=== PATIENT | male | born 1970 | race Caucasian/White ===

== ENCOUNTER 2018-06-29 14:58 | Inpatient (IN) | payer BC, SELFPAY ==
[2018-06-29 15:00] VITALS: BP 134/115; PULSE 125; RESP 20; TEMP 36.3; O2SAT 95; BMI 27.9
--- NOTE | 2018-06-29 15:11 | CT_ITS ---
STUDY: CT ABDOMEN AND PELVIS WITH CONTRAST REASON FOR EXAM: Male, 47 years old. Abdominal pain RADIATION DOSAGE (If Supplied By Facility): CTDIvol = ( 16.77 ) mGy, DLP = ( 1141.76 ) mGycm TECHNIQUE: Transaxial images were obtained from the lower chest to the upper thighs with oral contrast. 100 ml of Isovue 300 contrast was administered. Sagittal and coronal images were reconstructed. Individualized dose optimization techniques were used for this CT. COMPARISON: None. FINDINGS: Lower chest: Lower lungs: Minimal dependent atelectasis in both lung bases. Pleura: No pleural effusion. Cardiac: Heart size normal. Liver: Few scattered subcentimeter cysts. Spleen: Nonspecific prominence measuring 14 cm in the AP plane. Gallbladder and biliary system: Normal in appearance. Pancreas: Normal in appearance. Adrenal glands: Normal in appearance. Kidneys and collecting systems: Right: Normal in appearance. No dilatation of collecting system. Left: 3 mm nonobstructing stone in the lower pole. Subcentimeter benign cysts in the lower pole. No dilatation of collecting system. Gastrointestinal: Stomach: Normal in appearance. Small bowel: Normal in appearance. Colon: Scattered diverticula. There is wall thickening and surrounding stranding in the distal descending colon, and there is a 2.5 cm extraluminal focus of air medial to the distal descending colon. Appendix: Normal in appearance. Vessels: Arterial: Minimal scattered vascular calcifications. Venous: Unremarkable. Retroperitoneum/mesentery: Lymph nodes: Small retroperitoneal nodes. Fluid/free air: No free fluid or anterior free air. Pelvis: Bladder: Normal in appearance. Reproductive organs: Normal size prostate with calcifications. No pelvic free fluid. Soft tissues: Small umbilical hernia containing fat. Bones: Moderate degenerative changes. CT/Abdomen/Pelvis WITH Contrast IMPRESSION: There is acute diverticulitis in the distal descending colon. There is adjacent contained rupture with a 2.5 cm focus of air just medial to the distal descending colon. There is no bowel obstruction, ascites or abscess formation. There is no free air in the upper or anterior abdomen. Electronically Signed: Padmini Murphy MD at 18:48 EST Tel Direct: [phone], Service support ,
--- NOTE | 2018-06-29 15:15 | ED.DCSUM_ITS ---
- ER Visit Summary Date of Service: 06/29/18 Chief Complaint: Abdominal pain History of Present Illness: The patient is a 47 M who presents with abdominal pain that began yesterday. Patient states the pain is gradually getting worse. Patient states he has a history of diverticulosis but states this feels somewhat different. Patient states the pain is localized in the left lower quadrant. Patient denies any radiation. Patient admits to some nausea but denies any vomiting. Patient denies any diarrhea, melena, or hematochezia. Patient denies any urinary complaints. Patient states his pain is worse with certain movements and better with rest. Physical Examination: Vital signs showed an elevated blood pressure 134/115 and a tachycardia of 125. Patient is afebrile. Patient is in no acute distress. Remaining vital signs are normal. Oral mucosa is pink and moist. Neck is supple. Trachea is midline. Pupils are equal, round, and reactive to light bilaterally. Extraocular muscles are intact. Conjunctiva is clear. Heart was regular and tachycardic. Lungs are clear and equal bilaterally. Abdomen is soft. There is diffuse tenderness but worse over the left lower quadrant. There is no rebound or guarding noted. Cranial nerves II through XII are intact. There are no focal motor or sensory deficits noted. The remaining physical exam is within normal limits. Test Results: CBC showed a slight leukocytosis of 11.1. Total bilirubin sli ghtly elevated at 1.7 and AST was slightly low at 10. The remaining labs were all within normal limits. CT scan of the abdomen and pelvis with oral and IV contrast shows diverticulitis with local perforation with a 2.5 cm collection of free air adjacent to the distal descending colon. Emergency Department Course and Treatment: Patient was given morphine and Zofran here. Case was discussed with Dr. Diaz. He will be in to evaluate the patient. He will admit the patient to his service. Disposition: Admit to hospital Impression: Diverticulitis with perforation This note was generated with [employer] dictation software. It may contain incorrect words, spelling, and punctuation that were not noted in review of the chart prior to signing ED Disposition - Plan for ED Patient: Disposition: Acute Care Hospital [facility] Chief Complaint: Abd Pain Diagnosis: Diverticulitis of colon with perforation Referrals: [facility] Doctor,Out of [NON-STAFF] -
[2018-06-29 15:41] LABS: Absolute Lymphocyte Count 1.68 X10^3/ul (0.83-4.51); Absolute Neutrophil Count 8.4 X10^3/uL (2.0-7.7); Basophil# 0.01 X10^3/uL; Basophil% 0.1 % (0-1); Eosinophil# 0.05 X10^3/uL; Eosinophils% 0.4 % (0-5); Hematocrit 46.2 % (40-54); Hemoglobin 16.8 g/dl (13.0-16.5); Lymphocyte # 1.68 X10^3/ul (4.0); Lymphocyte % 15.1 % (19-41); Mean Corp Hgb Conc 36.4 g/gl (32-36); Mean Corpuscular Hgb 31.1 pg (27.0-32.0); Mean Corpuscular Volume 85.4 fL (80-94); Mean Platelet Vol. 10.5 fl (6.2-12.0); Monocyte# 0.94 X10^3/uL; Monocyte% 8.4 % (0-10); Neutrophil # 8.41 X10^3/uL (2.7-7.7); Neutrophil % 75.6 % (47-70); Platelet Count 177 K/mm3 (150-450); RBC Distribution Width CV 12.5 % (11.6-14.6); RBC Distribution Width SD 38.8 fl (35.1-43.9); Red Blood Count 5.41 M/mm3 (4.6-6.2); White Blood Count 11.1 K/mm3 (4.4-11.0)
[2018-06-29 15:42] LABS: POSITIVE COUNT NO; POSITIVE DIFFERENTIAL NO; POSITIVE MORPHOLOGY NO
--- NOTE | 2018-06-29 15:46 | ED.RN ---
pt declined morphine and zofran, noted he was not in pain at tthis time and declined.
[2018-06-29 15:56] LABS: ALB/GLOB Ratio 0.9 RATIO (0.9-2.4); AST(SGOT) 10 U/L (15-37); Alanine Aminotransfer ALT/SGPT 29 U/L (16-61); Albumin, Serum 3.9 g/dL (3.2-5.0); Alkaline Phosphatase 83 U/L (45-117); Anion Gap 8 (5-15); BUN 18 mg/dL (7-18); BUN/Creat Ratio 15.5 RATIO (10-20); Chloride 101 mmol/L (98-107); Creatinine, Serum 1.16 mg/dL (0.70-1.30); EST Glomerular Filtration Rate 71 mL/min (>60); Est Glom Filt Rate - Afr Amer 86 mL/min (>60); Estimated Creatinine Clearance 77.03 ml/min; Globulin 4.2 g/dL (2.2-4.2); Glucose 105 mg/dL (74-106); Lipase 96 U/L (73-393); Potassium 3.8 mmol/L (3.5-5.1); Protein, Total 8.1 g/dL (6.4-8.2); Sodium Level 139 mmol/L (136-145)
--- NOTE | 2018-06-29 15:58 | NURSING ---
pt does not want pain medication at this time
[2018-06-29 16:49] VITALS: BP 140/103; PULSE 114; RESP 18; O2SAT 94
[2018-06-29 17:02] LABS: Bacteria 0 SEEN /hpf (None Seen); Mucous, Urine 0 SEEN /hpf (<or=2+); White Blood Cells 0 SEEN /hpf (0-5)
[2018-06-29 17:06] LABS: Color, Urine Yellow (Yellow); Glucose, Dipstick Normal (Normal); Ketone-Dipstick Negative (Negative); Leukocyte Esterase-Dipstick Negative /ul (Negative); Nitrite-Dipstick Negative (Negative); Occult Blood-Urine 10 /ul (Negative); Protein-Dipstick 30 mg/dl (Negative); Specific Gravity, Urine 1.015 (1.002-1.030); Urine Bilirubin Dipstick Negative (Negative); Urine Clarity Clear (Clear); Urine Urobilinogen 4 mg/dl (Normal)
[2018-06-29 17:25] LABS: Red Blood Cells-Urine 0-5 SEEN /hpf (0-5); Squamous Epithelial Cells - UA 0-5 SEEN /hpf (0-5)
--- NOTE | 2018-06-29 17:53 | NURSING ---
pt still does not want morphine or zofran
[2018-06-29 19:00] VITALS: BP 146/108; PULSE 115; RESP 18; O2SAT 95
--- NOTE | 2018-06-29 19:51 | PCM.HP.STD ---
Problem List (1) Diverticulitis of colon with perforation Status: Acute Qualifiers: Diverticulitis bleeding: without bleeding Qualified Code(s): K57.20 - Diverticulitis of large intestine with perforation and abscess without bleeding History of Present Illness Date of Admission: 06/29/18 Chief Complaint: Left lower quadrant pain The patient is a 47 year old M with a history of diverticulitis. He reports that he has had diverticulitis twice in the past. He says that yesterday he began having left lower quadrant pain. He is not have any blood in his stool. He says it is painful to pass gas and he has not passed any gas in the last several hours. He is not having any nausea or vomiting. He says he had a normal colonoscopy about 5-7 years ago. The pain is in his left lower quadrant and does not radiate. He is not having any fevers or chills. Past Medical History Allergies No Known Allergies Allergy (Verified 06/29/18 14:59) Home Medications: Ambulatory Orders Medication Instructions Recorded Omeprazole [Prilosec] 20 mg PO DAILY 06/29/18 Surgical History: no surgical history Smoking Status: Former smoker - *Family History Maternal History Items: Heart Disease Paternal History Items: Cancer, Heart Disease Review of Systems Constitutional: Denies: Anorexia, Fever HEENT: Denies: Difficulty Swallowing Cardiovascular: Denies: Chest Pain Respiratory: Denies: Cough Gastrointestinal: Reports: Abdominal Pain, Constipation, Nausea. Denies: Diarrhea, Vomiting Genitourinary: Denies: Dysuria Musculoskeletal: Denies: Joint Tenderness Skin: Denies: Dryness, Jaundice Neurological: Denies: Balance problems Psychiatric: Denies: Anxiety, Depression Hematologic/ Lymphatic: Denies: Anemia VTE Information - Inpt Only VTE Present on Admission: No VTE Mechan Device Prophylaxis: SCD's Patient Problems: Active and Suspected Problems Diverticulitis of colon with perforation (Acute) - Physical Exam General: Alert, Oriented x3, Cooperative, No apparent distress HEENT: Atraumatic, PERRLA, EOMI Neck: No JVD Lungs: Normal air movement Cardiovascular: Regular rate, Regular Rhythm Abdomen: Soft, Non-Distended, Tender - Tender in the left lower quadrant with no guarding or rebound Extremities: No clubbing Skin: No rashes Musculoskeletal: No Muscle Wasting Neurological: Cranial nerves II-XII grossly intact Psych/Mental Status: Normal Affect, Appropriate Vital Signs Temp Pulse Resp BP Pulse Ox 97.4 F L 115 H 18 146/108 H 95 06/29/18 15:00 06/29/18 19:00 06/29/18 19:00 06/29/18 19:00 06/29/18 19:00 Oxygen Delivery Method Room Air Weight: 189 lb 6.033 oz Body Mass Index (BMI) 27.9 Laboratory Tests Past 24 Hrs 06/29/18 06/29/18 06/29/18 15:30 15:30 16:50 WBC 11.1 H RBC 5.41 Hgb 16.8 H Hct 46.2 MCV 85.4 MCH 31.1 MCHC 36.4 H RDW 12.5 RDW Differential 38.8 Plt Count 177 MPV 10.5 Immature Gran % (Auto) 0.400 Neut % (Auto) 75.6 H Lymph % (Auto) 15.1 L [place] % (Auto) 8.4 Eos % (Auto) 0.4 Baso % (Auto) 0.1 Absolute Neuts (auto) 8.4 H Absolute Lymphs (auto) 1.68 Total Counted Not Reportable Sodium 139 Potassium 3.8 Chloride 101 Carbon Dioxide 30.0 Anion Gap 8 BUN 18 Creatinine 1.16 Estim Creat Clear Calc 77.03 Est GFR (MDRD) Af Amer 86 Est GFR (MDRD) Non-Af 71 BUN/Creatinine Ratio 15.5 Glucose 105 Calcium 9.0 Total Bilirubin 1.70 H AST 10 L ALT 29 Alkaline Phosphatase 83 Total Protein 8.1 Albumin 3.9 Globulin 4.2 Albumin/Globulin Ratio 0.9 Lipase 96 Urine Color Yellow Urine Clarity Clear Urine pH 6.0 Ur Specific [place] 1.015 Urine Protein 30 H Urine Glucose (UA) Normal Urine Ketones Negative Urine Occult Blood 10 H Urine Nitrite Negative Urine Bilirubin Negative Urine Urobilinogen 4 H Ur Leukocyte Esterase Negative Urine RBC 0-5 SEEN Urine WBC 0 SEEN Ur Squamous Epith Cells 0-5 SEEN Urine Bacteria 0 SEEN Urine Mucus 0 SEEN Clinical Impression(s) from Imaging Studies Abdomen/Pelvis CT 06/29/18 15:11 IMPRESSION: There is acute diverticulitis in the distal descending colon. There is adjacent contained rupture with a 2.5 cm focus of air just medial to the distal descending colon. There is no bowel obstruction, ascites or abscess formation. There is no free air in the upper or anterior abdomen. Electronically Signed: Padmini Murphy MD at 18:48 EST Tel Direct: [phone], Service support , Assessment/Plan All Active Problems Diverticulitis of colon with perforation (Acute) 47-year-old male with contained perforation of diverticulitis of the sigmoid colon 1. Patient has elevated white count and left lower quadrant pain. The patient reports his last colonoscopy was 5-7 years ago. The patient has CT scan which shows a contained perforation of the sigmoid colon. There is no free air at this time. The patient's CAT scan also appears to show an apple core lesion versus stricture in the sigmoid rectum junction. 2. I explained that since it is contained I would try conservative management in order to be able to do a colonoscopy and elective colectomy at a future date. I explained that if the patient's pain worsened at all I would repeat a CAT scan and check if the perforation was no longer contained and at that time I would have to perform emergency surgery. 3. I will start the patient on antibiotics and keep the patient n.p.o. SCDs for prophylaxis until 24 hours from now and I will start Lovenox. PPI. Lex Diaz MD Pager: [facility] [address] [place] [address], [address] [place] [address] Office:
--- NOTE | 2018-06-29 19:55 | HP.PCM_ITS ---
Problem List (1) Diverticulitis of colon with perforation Status: Acute Qualifiers: Diverticulitis bleeding: without bleeding Qualified Code(s): K57.20 - Diverticulitis of large intestine with perforation and abscess without bleeding History of Present Illness Date of Admission: 06/29/18 Chief Complaint: Left lower quadrant pain The patient is a 47 year old M with a history of diverticulitis. He reports that he has had diverticulitis twice in the past. He says that yesterday he began having left lower quadrant pain. He is not have any blood in his stool. He says it is painful to pass gas and he has not passed any gas in the last several hours. He is not having any nausea or vomiting. He says he had a normal colonoscopy about 5-7 years ago. The pain is in his left lower quadrant and does not radiate. He is not having any fevers or chills. Past Medical History Allergies No Known Allergies Allergy (Verified 06/29/18 14:59) Home Medications: Ambulatory Orders Medication Instructions Recorded Omeprazole [Prilosec] 20 mg PO DAILY 06/29/18 Surgical History: no surgical history Smoking Status: Former smoker - *Family History Maternal History Items: Heart Disease Paternal History Items: Cancer, Heart Disease Review of Systems Constitutional: Denies: Anorexia, Fever HEENT: Denies: Difficulty Swallowing Cardiovascular: Denies: Chest Pain Respiratory: Denies: Cough Gastrointestinal: Reports: Abdominal Pain, Constipation, Nausea. Denies: Diarrhea, Vomiting Genitourinary: Denies: Dysuria Musculoskeletal: Denies: Joint Tenderness Skin: Denies: Dryness, Jaundice Neurological: Denies: Balance problems Psychiatric: Denies: Anxiety, Depression Hematologic/ Lymphatic: Denies: Anemia VTE Information - Inpt Only VTE Present on Admission: No VTE Mechan Device Prophylaxis: SCD's Patient Problems: Active and Suspected Problems Diverticulitis of colon with perforation (Acute) - Physical Exam General: Alert, Oriented x3, Cooperative, No apparent distress HEENT: Atraumatic, PERRLA, EOMI Neck: No JVD Lungs: Normal air movement Cardiovascular: Regular rate, Regular Rhythm Abdomen: Soft, Non-Distended, Tender - Tender in the left lower quadrant with no guarding or rebound Extremities: No clubbing Skin: No rashes Musculoskeletal: No Muscle Wasting Neurological: Cranial nerves II-XII grossly intact Psych/Mental Status: Normal Affect, Appropriate Vital Signs Temp Pulse Resp BP Pulse Ox 97.4 F L 115 H 18 146/108 H 95 06/29/18 15:00 06/29/18 19:00 06/29/18 19:00 06/29/18 19:00 06/29/18 19:00 Oxygen Delivery Method Room Air Weight: 189 lb 6.033 oz Body Mass Index (BMI) 27.9 Laboratory Tests Past 24 Hrs 06/29/18 06/29/18 06/29/18 15:30 15:30 16:50 WBC 11.1 H RBC 5.41 Hgb 16.8 H Hct 46.2 MCV 85.4 MCH 31.1 MCHC 36.4 H RDW 12.5 RDW Differential 38.8 Plt Count 177 MPV 10.5 Immature Gran % (Auto) 0.400 Neut % (Auto) 75.6 H Lymph % (Auto) 15.1 L [place] % (Auto) 8.4 Eos % (Auto) 0.4 Baso % (Auto) 0.1 Absolute Neuts (auto) 8.4 H Absolute Lymphs (auto) 1.68 Total Counted Not Reportable Sodium 139 Potassium 3.8 Chloride 101 Carbon Dioxide 30.0 Anion Gap 8 BUN 18 Creatinine 1.16 Estim Creat Clear Calc 77.03 Est GFR (MDRD) Af Amer 86 Est GFR (MDRD) Non-Af 71 BUN/Creatinine Ratio 15.5 Glucose 105 Calcium 9.0 Total Bilirubin 1.70 H AST 10 L ALT 29 Alkaline Phosphatase 83 Total Protein 8.1 Albumin 3.9 Globulin 4.2 Albumin/Globulin Ratio 0.9 Lipase 96 Urine Color Yellow Urine Clarity Clear Urine pH 6.0 Ur Specific [place] 1.015 Urine Protein 30 H Urine Glucose (UA) Normal Urine Ketones Negative Urine Occult Blood 10 H Urine Nitrite Negative Urine Bilirubin Negative Urine Urobilinogen 4 H Ur Leukocyte Esterase Negative Urine RBC 0-5 SEEN Urine WBC 0 SEEN Ur Squamous Epith Cells 0-5 SEEN Urine Bacteria 0 SEEN Urine Mucus 0 SEEN Clinical Impression(s) from Imaging Studies Abdomen/Pelvis CT 06/29/18 15:11 IMPRESSION: There is acute diverticulitis in the distal descending colon. There is adjacent contained rupture with a 2.5 cm focus of air just medial to the distal descending colon. There is no bowel obstruction, ascites or abscess formation. There is no free air in the upper or anterior abdomen. Electronically Signed: Padmini Murphy MD at 18:48 EST Tel Direct: [phone], Service support , Assessment/Plan All Active Problems Diverticulitis of colon with perforation (Acute) 47-year-old male with contained perforation of diverticulitis of the sigmoid colon 1. Patient has elevated white count and left lower quadrant pain. The patient reports his last colonoscopy was 5-7 years ago. The patient has CT scan which shows a contained perforation of the sigmoid colon. There is no free air at this time. The patient's CAT scan also appears to show an apple core lesion versus stricture in the sigmoid rectum junction. 2. I explained that since it is contained I would try conservative management in order to be able to do a colonoscopy and elective colectomy at a future date. I explained that if the patient's pain worsened at all I would repeat a CAT scan and check if the perforation was no longer contained and at that time I would have to perform emergency surgery. 3. I will start the patient on antibiotics and keep the patient n.p.o. SCDs for prophylaxis until 24 hours from now and I will start Lovenox. PPI. Lex Diaz MD Pager: [facility] [address] [place] [address], [address] [place] [address] Office:
[2018-06-29 21:29] VITALS: BP 119/88; PULSE 110; RESP 18; TEMP 37.9; O2SAT 93
[2018-06-29 21:33] VITALS: BMI 26.9
[2018-06-29 21:41] VITALS: BMI 26.9
[2018-06-29] MEDS: 0.9% Normal Saline 1,000 ML 125 ML IV (22:06)
[2018-06-30] MEDS: Piperacil/Tazobactam 3.375 GM/50 ML ML IV ×3 (02:03→21:13)
[2018-06-30 02:04] VITALS: BP 144/90; PULSE 89; RESP 16; TEMP 37.6; O2SAT 95
[2018-06-30] MEDS: 0.9% Normal Saline 1,000 ML 125 ML IV ×3 (05:32→21:13)
[2018-06-30 06:00] LABS: Absolute Lymphocyte Count 1.63 X10^3/ul (0.83-4.51); Absolute Neutrophil Count 8.1 X10^3/uL (2.0-7.7); Basophil# 0.02 X10^3/uL; Basophil% 0.2 % (0-1); Eosinophil# 0.05 X10^3/uL; Eosinophils% 0.5 % (0-5); Hematocrit 43.6 % (40-54); Hemoglobin 15.7 g/dl (13.0-16.5); Lymphocyte # 1.63 X10^3/ul (4.0); Lymphocyte % 15.2 % (19-41); Mean Corpuscular Hgb 31.1 pg (27.0-32.0); Mean Corpuscular Volume 86.3 fL (80-94); Mean Platelet Vol. 10.8 fl (6.2-12.0); Monocyte# 0.91 X10^3/uL; Monocyte% 8.5 % (0-10); Neutrophil # 8.09 X10^3/uL (2.7-7.7); Neutrophil % 75.1 % (47-70); Platelet Count 178 K/mm3 (150-450); RBC Distribution Width CV 12.6 % (11.6-14.6); RBC Distribution Width SD 38.8 fl (35.1-43.9); Red Blood Count 5.05 M/mm3 (4.6-6.2); White Blood Count 10.8 K/mm3 (4.4-11.0)
[2018-06-30 06:04] LABS: POSITIVE COUNT NO; POSITIVE DIFFERENTIAL NO; POSITIVE MORPHOLOGY NO
[2018-06-30 06:11] LABS: Anion Gap 8 (5-15); BUN 18 mg/dL (7-18); BUN/Creat Ratio 16.4 RATIO (10-20); Calcium,Total 8.6 mg/dL (8.5-10.1); Chloride 103 mmol/L (98-107); EST Glomerular Filtration Rate 75 mL/min (>60); Est Glom Filt Rate - Afr Amer 91 mL/min (>60); Estimated Creatinine Clearance 83.88 ml/min; Glucose 98 mg/dL (74-106); Magnesium 2.3 mg/dL (1.6-2.6); Phosphorus 2.5 mg/dL (2.5-4.9); Potassium 4.2 mmol/L (3.5-5.1); Sodium Level 138 mmol/L (136-145)
[2018-06-30 07:30] VITALS: BP 133/88; PULSE 84; RESP 16; TEMP 37.3; O2SAT 98
--- NOTE | 2018-06-30 08:28 | PN.SURG_ITS ---
Patient Problems: Active and Suspected Problems Diverticulitis of colon with perforation (Acute) Subjective: Patient reports some improvement of his left lower quadrant pain. He is not having any nausea or vomiting or fevers or chills. - Physical Exam General: Alert, Oriented x3 Lungs: Normal air movement Cardiovascular: Regular Rhythm Abdomen: Soft, Non-Distended, Tender - Tender in left lower quadrant. Vital Signs Temp Pulse Resp BP Pulse Ox 99.1 F 84 16 133/88 H 98 06/30/18 07:30 06/30/18 07:30 06/30/18 07:30 06/30/18 07:30 06/30/18 07:30 Oxygen Delivery Method Room Air Weight: 187 lb 6.287 oz Body Mass Index (BMI) 26.9 Intake and Output for Last 24 Hours 06/28/18 06/29/18 06/30/18 23:59 23:59 23:59 Intake Total 1265 / 1265 Balance 1265 / 1265 Laboratory Tests Past 24 Hrs 06/29/18 06/29/18 06/29/18 15:30 15:30 16:50 WBC 11.1 H RBC 5.41 Hgb 16.8 H Hct 46.2 MCV 85.4 MCH 31.1 MCHC 36.4 H RDW 12.5 RDW Differential 38.8 Plt Count 177 MPV 10.5 Immature Gran % (Auto) 0.400 Neut % (Auto) 75.6 H Lymph % (Auto) 15.1 L [place] % (Auto) 8.4 Eos % (Auto) 0.4 Baso % (Auto) 0.1 Absolute Neuts (auto) 8.4 H Absolute Lymphs (auto) 1.68 Total Counted Not Reportable Sodium 139 Potassium 3.8 Chloride 101 Carbon Dioxide 30.0 Anion Gap 8 BUN 18 Creatinine 1.16 Estim Creat Clear Calc 77.03 Est GFR (MDRD) Af Amer 86 Est GFR (MDRD) Non-Af 71 BUN/Creatinine Ratio 15.5 Glucose 105 Calcium 9.0 Phosphorus Magnesium Total Bilirubin 1.70 H AST 10 L ALT 29 Alkaline Phosphatase 83 Total Protein 8.1 Albumin 3.9 Globulin 4.2 Albumin/Globulin Ratio 0.9 Lipase 96 Urine Color Yellow Urine Clarity Clear Urine pH 6.0 Ur Specific [place] 1.015 Urine Protein 30 H Urine Glucose (UA) Normal Urine Ketones Negative Urine Occult Blood 10 H Urine Nitrite Negative Urine Bilirubin Negative Urine Urobilinogen 4 H Ur Leukocyte Esterase Negative Urine RBC 0-5 SEEN Urine WBC 0 SEEN Ur Squamous Epith Cells 0-5 SEEN Urine Bacteria 0 SEEN Urine Mucus 0 SEEN 06/30/18 06/30/18 05:38 05:38 WBC 10.8 RBC 5.05 Hgb 15.7 Hct 43.6 MCV 86.3 MCH 31.1 MCHC 36.0 RDW 12.6 RDW Differential 38.8 Plt Count 178 MPV 10.8 Immature Gran % (Auto) 0.500 Neut % (Auto) 75.1 H Lymph % (Auto) 15.2 L [place] % (Auto) 8.5 Eos % (Auto) 0.5 Baso % (Auto) 0.2 Absolute Neuts (auto) 8.1 H Absolute Lymphs (auto) 1.63 Total Counted Not Reportable Sodium 138 Potassium 4.2 Chloride 103 Carbon Dioxide 27.0 Anion Gap 8 BUN 18 Creatinine 1.10 Estim Creat Clear Calc 83.88 Est GFR (MDRD) Af Amer 91 Est GFR (MDRD) Non-Af 75 BUN/Creatinine Ratio 16.4 Glucose 98 Calcium 8.6 Phosphorus 2.5 Magnesium 2.3 Total Bilirubin AST ALT Alkaline Phosphatase Total Protein Albumin Globulin Albumin/Globulin Ratio Lipase Urine Color Urine Clarity Urine pH Ur Specific [place] Urine Protein Urine Glucose (UA) Urine Ketones Urine Occult Blood Urine Nitrite Urine Bilirubin Urine Urobilinogen Ur Leukocyte Esterase Urine RBC Urine WBC Ur Squamous Epith Cells Urine Bacteria Urine Mucus Medical Necessity - Tobacco Use Smoking Status: Former smoker Tobacco Use: Cigarettes Assessment/Plan All Active Problems Diverticulitis of colon with perforation (Acute) 47-year-old male with contained perforation of diverticulitis 1. Patient still having tenderness this morning. I will continue n.p.o. and IV fluids as well as IV antibiotics. If there is any worsening of condition I will repeat a CT scan and if there is free perforation he will have surgery. 2. PPI, SCDs, Lovenox Lex Diaz MD Pager: [facility] [address] [place] [address] Outpatient [facility] [place], [address] [place] [address] Office:
[2018-06-30] MEDS: Enoxaparin 40 MG/0.4 ML Syringe SC (10:52)
--- NOTE | 2018-06-30 11:20 | CASEMGMT ---
RN WILLIAM Face to Face with patient for initial transition planning/care coordination assessment. RN CM introduced self and role at [facility]. Patient lying in bed, alert and oriented. Patient willing to participate in assessment and is able to answer all questions appropriately. Care providers, pharmacy, and demographics verified. Patient wishes to discharge home, denies need for home health at this time. Patient states he has no further needs or concerns at this time. CM to follow for discharge planning needs that may arise. PCP: No PCP, CM to provided list Specialists: None Preferred Pharmacy: [facility] Insurance: [place] Prescription Benefit: [place] Living Will/HPOA: None LNOK: Son Living Arrangements: Patient lives alone in mobile home, independent Transportation: self DME/HHC: None Disposition Plan: Patient to discharge home with follow-up plans in place. Ashley JEFFERS, RN, CM
[2018-06-30 15:28] VITALS: BP 118/75; PULSE 74; RESP 18; TEMP 37.3; O2SAT 98
[2018-06-30 20:15] VITALS: BP 138/90; PULSE 87; RESP 18; TEMP 37.1; O2SAT 94
[2018-07-01 01:51] VITALS: BP 133/91; PULSE 84; RESP 16; TEMP 37.6; O2SAT 94
[2018-07-01] MEDS: Piperacil/Tazobactam 3.375 GM/50 ML ML IV ×3 (04:58→21:35)
[2018-07-01] MEDS: 0.9% Normal Saline 1,000 ML 125 ML IV ×3 (04:58→21:35)
[2018-07-01 06:12] LABS: Absolute Lymphocyte Count 1.28 X10^3/ul (0.83-4.51); Absolute Neutrophil Count 8.5 X10^3/uL (2.0-7.7); Basophil# 0.02 X10^3/uL; Basophil% 0.2 % (0-1); Eosinophil# 0.05 X10^3/uL; Eosinophils% 0.5 % (0-5); Hematocrit 41.5 % (40-54); Hemoglobin 14.7 g/dl (13.0-16.5); Lymphocyte # 1.28 X10^3/ul (4.0); Lymphocyte % 11.8 % (19-41); Mean Corp Hgb Conc 35.4 g/gl (32-36); Mean Corpuscular Hgb 30.3 pg (27.0-32.0); Mean Corpuscular Volume 85.6 fL (80-94); Mean Platelet Vol. 10.7 fl (6.2-12.0); Monocyte# 0.98 X10^3/uL; Monocyte% 9.1 % (0-10); Neutrophil # 8.45 X10^3/uL (2.7-7.7); Neutrophil % 78.1 % (47-70); Platelet Count 161 K/mm3 (150-450); RBC Distribution Width CV 12.2 % (11.6-14.6); Red Blood Count 4.85 M/mm3 (4.6-6.2); White Blood Count 10.8 K/mm3 (4.4-11.0)
[2018-07-01 06:13] LABS: POSITIVE COUNT NO; POSITIVE DIFFERENTIAL NO; POSITIVE MORPHOLOGY NO
[2018-07-01 06:21] LABS: Anion Gap 9 (5-15); BUN 14 mg/dL (7-18); BUN/Creat Ratio 16.4 RATIO (10-20); Calcium,Total 8.5 mg/dL (8.5-10.1); Chloride 106 mmol/L (98-107); Creatinine, Serum 0.85 mg/dL (0.70-1.30); EST Glomerular Filtration Rate 101 mL/min (>60); Est Glom Filt Rate - Afr Amer 122 mL/min (>60); Estimated Creatinine Clearance 108.55 ml/min; Glucose 84 mg/dL (74-106); Potassium 3.9 mmol/L (3.5-5.1); Sodium Level 138 mmol/L (136-145)
--- NOTE | 2018-07-01 08:19 | PN.SURG_ITS ---
Patient Problems: Active and Suspected Problems Diverticulitis of colon with perforation (Acute) Subjective: Patient still having left lower quadrant abdominal tenderness. The rest of his abdomen is nontender. He is passing flatus. - Physical Exam General: Alert, Oriented x3, Cooperative Lungs: Normal air movement Abdomen: Soft, Non-Distended, Tender - Tender to palpation of the left lower quadrant. No guarding or rebound. Remainder of the abdomen is soft and nontender. Vital Signs Temp Pulse Resp BP Pulse Ox 99.7 F H 84 16 133/91 H 94 07/01/18 01:51 07/01/18 01:51 07/01/18 01:51 07/01/18 01:51 07/01/18 01:51 Oxygen Delivery Method Room Air Weight: 187 lb 6.287 oz Body Mass Index (BMI) 26.9 Intake and Output for Last 24 Hours 06/29/18 06/30/18 07/01/18 23:59 23:59 23:59 Intake Total 3899 / 3899 901 / 901 Output Total 800 / 800 650 / 650 Balance 3099 / 3099 251 / 251 Laboratory Tests Past 24 Hrs 07/01/18 07/01/18 05:40 05:40 WBC 10.8 RBC 4.85 Hgb 14.7 Hct 41.5 MCV 85.6 MCH 30.3 MCHC 35.4 RDW 12.2 RDW Differential 38.0 Plt Count 161 MPV 10.7 Immature Gran % (Auto) 0.300 Neut % (Auto) 78.1 H Lymph % (Auto) 11.8 L [place] % (Auto) 9.1 Eos % (Auto) 0.5 Baso % (Auto) 0.2 Absolute Neuts (auto) 8.5 H Absolute Lymphs (auto) 1.28 Total Counted Not Reportable Sodium 138 Potassium 3.9 Chloride 106 Carbon Dioxide 23.0 Anion Gap 9 BUN 14 Creatinine 0.85 Estim Creat Clear Calc 108.55 Est GFR (MDRD) Af Amer 122 Est GFR (MDRD) Non-Af 101 BUN/Creatinine Ratio 16.4 Glucose 84 Calcium 8.5 Medical Necessity - Tobacco Use Smoking Status: Former smoker Tobacco Use: Cigarettes Assessment/Plan All Active Problems Diverticulitis of colon with perforation (Acute) 47-year-old male with contained perforation of sigmoid diverticulitis 1. Patient still having abdominal tenderness. His white count is stable and he is afebrile. Continue n.p.o. and IV antibiotics. Once the patient is pain-free I will advance his diet. Lex Diaz MD Pager: [facility] [address] [place] [address], [address] [place] [address] Office:
[2018-07-01 08:31] VITALS: BP 127/75; PULSE 67; RESP 16; TEMP 36.8; O2SAT 95
[2018-07-01] MEDS: Enoxaparin 40 MG/0.4 ML Syringe SC (09:52)
[2018-07-01 19:54] VITALS: BP 145/89; PULSE 75; RESP 16; TEMP 37.3; O2SAT 96
[2018-07-02 02:11] VITALS: BP 111/64; PULSE 63; RESP 16; TEMP 36.6; O2SAT 95
[2018-07-02] MEDS: Piperacil/Tazobactam 3.375 GM/50 ML ML IV ×3 (05:04→21:22)
[2018-07-02] MEDS: 0.9% Normal Saline 1,000 ML 125 ML IV ×3 (05:04→21:21)
[2018-07-02 05:38] LABS: Absolute Lymphocyte Count 1.01 X10^3/ul (0.83-4.51); Basophil# 0.01 X10^3/uL; Basophil% 0.1 % (0-1); Eosinophil# 0.11 X10^3/uL; Eosinophils% 1.4 % (0-5); Hematocrit 39.8 % (40-54); Lymphocyte # 1.01 X10^3/ul (4.0); Lymphocyte % 12.8 % (19-41); Mean Corp Hgb Conc 35.2 g/gl (32-36); Mean Corpuscular Volume 85.4 fL (80-94); Mean Platelet Vol. 10.5 fl (6.2-12.0); Monocyte# 0.76 X10^3/uL; Monocyte% 9.6 % (0-10); Neutrophil # 5.95 X10^3/uL (2.7-7.7); Neutrophil % 75.6 % (47-70); Platelet Count 177 K/mm3 (150-450); RBC Distribution Width CV 12.1 % (11.6-14.6); RBC Distribution Width SD 36.8 fl (35.1-43.9); Red Blood Count 4.66 M/mm3 (4.6-6.2); White Blood Count 7.9 K/mm3 (4.4-11.0)
[2018-07-02 05:44] LABS: Anion Gap 8 (5-15); BUN 13 mg/dL (7-18); BUN/Creat Ratio 13.5 RATIO (10-20); Calcium,Total 8.6 mg/dL (8.5-10.1); Chloride 106 mmol/L (98-107); Creatinine, Serum 0.96 mg/dL (0.70-1.30); EST Glomerular Filtration Rate 88 mL/min (>60); Est Glom Filt Rate - Afr Amer 107 mL/min (>60); Estimated Creatinine Clearance 96.11 ml/min; Glucose 74 mg/dL (74-106); Potassium 4.1 mmol/L (3.5-5.1); Sodium Level 141 mmol/L (136-145)
[2018-07-02 05:59] LABS: POSITIVE COUNT NO; POSITIVE DIFFERENTIAL NO; POSITIVE MORPHOLOGY NO
--- NOTE | 2018-07-02 08:05 | PN.SURG_ITS ---
Patient Problems: Active and Suspected Problems Diverticulitis of colon with perforation (Acute) Subjective: Patient is doing well today. He has some mild discomfort but he said it is much improved. He had a bowel movement with no discomfort. - Physical Exam General: Alert, Oriented x3, Cooperative Neck: No JVD Lungs: Clear to auscultation, Normal air movement Cardiovascular: Regular rate, Regular Rhythm Abdomen: Soft, Non-Distended, Tender - Very mild left lower quadrant tenderness to palpation Vital Signs Temp Pulse Resp BP Pulse Ox 98 F 63 16 111/64 95 07/02/18 02:11 07/02/18 02:11 07/02/18 02:11 07/02/18 02:11 07/02/18 02:11 Oxygen Delivery Method Room Air Weight: 187 lb 6.287 oz Body Mass Index (BMI) 26.9 Intake and Output for Last 24 Hours 06/30/18 07/01/18 07/02/18 23:59 23:59 23:59 Intake Total 3899 / 3899 4141 / 4141 741 / 741 Output Total 800 / 800 3650 / 3650 400 / 400 Balance 3099 / 3099 491 / 491 341 / 341 Laboratory Tests Past 24 Hrs 07/02/18 07/02/18 05:22 05:22 WBC 7.9 RBC 4.66 Hgb 14.0 Hct 39.8 L MCV 85.4 MCH 30.0 MCHC 35.2 RDW 12.1 RDW Differential 36.8 Plt Count 177 MPV 10.5 Immature Gran % (Auto) 0.500 Neut % (Auto) 75.6 H Lymph % (Auto) 12.8 L Starr % (Auto) 9.6 Eos % (Auto) 1.4 Baso % (Auto) 0.1 Absolute Neuts (auto) 6.0 Absolute Lymphs (auto) 1.01 Total Counted Not Reportable Sodium 141 Potassium 4.1 Chloride 106 Carbon Dioxide 27.0 Anion Gap 8 BUN 13 Creatinine 0.96 Estim Creat Clear Calc 96.11 Est GFR (MDRD) Af Amer 107 Est GFR (MDRD) Non-Af 88 BUN/Creatinine Ratio 13.5 Glucose 74 Calcium 8.6 Medical Necessity - Tobacco Use Smoking Status: Former smoker Tobacco Use: Cigarettes Assessment/Plan All Active Problems Diverticulitis of colon with perforation (Acute) 47-year-old male with contained perforation of the sigmoid colon 1. Patient seems to be improving steadily. I will let him if clear liquids today. I will repeat a CT scan with p.o. and IV contrast tomorrow morning. If the contained perforation is stable I will start him on a regular diet tomorrow. If he tolerates regular diet he can be discharged with p.o. antibiotics. Lex Diaz MD Pager: [facility] [address] [place] [address], [address] [place] [address] Office:
[2018-07-02 08:11] VITALS: BP 113/60; PULSE 69; RESP 18; TEMP 36.6; O2SAT 94
[2018-07-02 13:38] VITALS: BP 127/66; PULSE 72; RESP 16; TEMP 36.7; O2SAT 94
[2018-07-02 20:49] VITALS: BP 144/92; PULSE 57; RESP 16; TEMP 37.1; O2SAT 97
[2018-07-02 21:20] VITALS: BP 146/89; PULSE 53
[2018-07-03 03:42] VITALS: BP 117/78; PULSE 61; RESP 16; TEMP 37; O2SAT 95
[2018-07-03] MEDS: 0.9% Normal Saline 1,000 ML 125 ML IV (05:18)
[2018-07-03] MEDS: Piperacil/Tazobactam 3.375 GM/50 ML ML IV (05:33)
--- NOTE | 2018-07-03 05:55 | CT_ITS ---
STUDY: CT ABDOMEN AND PELVIS WITH CONTRAST REASON FOR EXAM: Male, 47 years old. Follow-up contained sigmoid perforation. Left lower quadrant tenderness. RADIATION DOSAGE (If Supplied By Facility): CTDIvol = ( 17.45 ) mGy, DLP = ( 965.87 ) mGycm TECHNIQUE: Transaxial images were obtained from the dome of the diaphragm to the symphysis pubis with oral contrast. 100mL ml of Isovue 300 contrast was administered. Sagittal and coronal images were reconstructed. Individualized dose optimization techniques were used for this CT. COMPARISON: 06/29/2018. FINDINGS: The visualized lung bases are unremarkable. The visualized portions of the heart are within normal limits. There are several small liver cysts. Normal gallbladder and extrahepatic biliary system. There is mild splenomegaly. Normal pancreas. Normal bilateral adrenal glands. Normal right kidney. There is a 4 mm nonobstructive left lower pole renal calculus. There is no demonstrated ureteral calculus or hydronephrosis. Normal visualized stomach. Normal small intestine. There there is extensive colonic diverticulosis, with acute diverticulitis of the proximal sigmoid colon. There is a collection of extravasated air anteromedial to the involved colonic segment with surrounding fat infiltration. There is no associated fluid collection. The appearance is not significantly different from the recent previous study. There is no evidence for remote free intraperitoneal air.. The appendix is visualized on axial images [id number] appears normal.. There is mild atherosclerotic calcification of the abdominal aorta, without a demonstrated aneurysm. Normal inferior vena cava. Normal retroperitoneum. Normal urinary bladder. There is an umbilical hernia containing fat, but no bowel. There is also small left inguinal hernia containing fat, but no bowel. There is bilateral L5 spondylolysis, with associated grade 1 spondylolisthesis L5-S1. There are multilevel degenerative changes in the spine. CT/Abdomen/Pelvis WITH Contrast IMPRESSION: Redemonstration of acute diverticulitis of the proximal sigmoid colon. Localized collection of extravasated air with surrounding fat infiltration is not significantly different from the previous exam. No demonstrated fluid-containing abscess. Small nonobstructive left renal calculus. No demonstrated ureteral calculus or hydronephrosis. Mild splenomegaly. Atherosclerosis. Small liver cysts. Electronically Signed: Sixto Murphy MD at 6:50 EST , Service support ,
[2018-07-03] MEDS: 0.9% NaCl Peripheral Flush Adult/Peds IV (05:57)
[2018-07-03 07:46] VITALS: BP 127/90; PULSE 56; RESP 18; TEMP 36.8; O2SAT 97
--- NOTE | 2018-07-03 09:03 | PN.SURG_ITS ---
Patient Problems: Active and Suspected Problems Diverticulitis of colon with perforation (Acute) Subjective: Patient is doing well this morning. He tolerated a clear liquid diet yesterday. He is not having any pain with defecation or passing gas. No nausea or vomiting or fevers or chills. - Physical Exam General: Alert, Oriented x3, Cooperative Lungs: Normal air movement Abdomen: Soft, Non Tender, Non-Distended Vital Signs Temp Pulse Resp BP Pulse Ox 98.3 F 56 L 18 127/90 H 97 07/03/18 07:46 07/03/18 07:46 07/03/18 07:46 07/03/18 07:46 07/03/18 07:46 Oxygen Delivery Method Room Air Weight: 187 lb 6.287 oz Body Mass Index (BMI) 26.9 Intake and Output for Last 24 Hours 07/01/18 07/02/18 07/03/18 23:59 23:59 23:59 Intake Total 4141 / 4141 3269 / 3269 2167 / 2167 Output Total 3650 / 3650 1100 / 1100 Balance 491 / 491 2169 / 2169 2167 / 2167 Medical Necessity - Tobacco Use Smoking Status: Former smoker Tobacco Use: Cigarettes Assessment/Plan All Active Problems Diverticulitis of colon with perforation (Acute) 47-year-old male with perforated contained diverticulitis 1. Patient is doing well this morning. Patient is not having any pain and he is passing gas. He had a repeat CT with oral and IV contrast today which shows that the air pocket has not increased in size or developed an abscess. I would advance his diet to a transitional diet and if he tolerates this he may be discharged home on oral antibiotic Lex Diaz MD Pager: [facility] [address] [place] [address], [address] [place] [address] Office:
--- NOTE | 2018-07-03 09:04 | PCM.DC ---
- Discharge Diagnoses Current Active Problems: Current Active and Chronic Problems Diverticulitis of colon with perforation (Acute) You will use the following diet at home:: Fiber restricted Your food should be the consistency of: Regular Your liquids should be the consistency of: Regular/Thin Discharge Activity: Return to Normal Activity Call your doctor if your incision/area has: Increased Pain/ Swelling Call your doctor if you observe: Fever of 101 or Higher Allergies/Adverse Reactions: Allergies No Known Allergies Allergy (Verified 06/29/18 14:59) Medications to take at Discharge Omeprazole [Prilosec] 20 mg PO DAILY 06/29/18 Ciprofloxacin [Cipro] 500 mg PO BID 10 Days #20 tablet 07/03/18 Metronidazole [Flagyl] 500 mg PO Q8H 10 Days #30 tablet 07/03/18 The following prescriptions were given: Metronidazole [Flagyl] 500 mg PO Q8H 10 Days #30 tablet Ciprofloxacin [Cipro] 500 mg PO BID 10 Days #20 tablet Primary Care Physician: [facility] Doctor,Out of [NON-STAFF] - Test Results: Test results from this visit will be discussed in further detail at your follow-up appointment, if applicable. Please Follow Up With: Lex Diaz MD When: Please call to schedule 2 week follow up appointment. [phone]
--- NOTE | 2018-07-03 09:06 | DS.PCM_ITS ---
Discharge Date and Diagnosis Date of Admission: 06/29/18 Date of Discharge: 07/03/18 - Primary Discharge Diagnosis Active and Suspected Problems Diverticulitis of colon with perforation (Acute) Hospital Course and Treatment Imaging Results: 07/03/18 05:55 CT Abd [Abdomen/Pelvis WITH Contrast] [CT] AM (NON MEDS) Clinical Impression(s) from Imaging Studies Abdomen/Pelvis CT 06/29/18 15:11 IMPRESSION: There is acute diverticulitis in the distal descending colon. There is adjacent contained rupture with a 2.5 cm focus of air just medial to the distal descending colon. There is no bowel obstruction, ascites or abscess formation. There is no free air in the upper or anterior abdomen. Electronically Signed: Padmini Murphy MD at 18:48 EST Tel Direct: [phone], Service support , Abdomen/Pelvis CT 07/03/18 05:55 IMPRESSION: Redemonstration of acute diverticulitis of the proximal sigmoid colon. Localized collection of extravasated air with surrounding fat infiltration is not significantly different from the previous exam. No demonstrated fluid-containing abscess. Small nonobstructive left renal calculus. No demonstrated ureteral calculus or hydronephrosis. Mild splenomegaly. Atherosclerosis. Small liver cysts. Electronically Signed: Sixto Murphy MD at 6:50 EST , Service support , Operations: None Procedures: None Summary of Care Provided: The patient is a 47 year old M who presented to the emergency room with left lower quadrant pain. CT revealed a contained perforation of the sigmoid colon with diverticulitis. Patient was admitted and kept n.p.o. on IV antibiotics for several days until he is passing gas and pain was resolved. At that time the patient was started on clear liquid diet and he was tolerating clear liquid diet and a repeat scan was done showing that the air collection had not grown and was still contained with no abscess. At that time the patient was advanced to regular diet once he is tolerating regular diet he was discharged home on p.o. antibiotics. He will follow-up with me in 2 weeks and we will schedule him for colonoscopy and discuss possible elective sigmoid colectomy. - Physical Exam Vital Signs Temp Pulse Resp BP Pulse Ox 98.3 F 56 L 18 127/90 H 97 07/03/18 07:46 07/03/18 07:46 07/03/18 07:46 07/03/18 07:46 07/03/18 07:46 Oxygen Delivery Method Room Air Weight: 187 lb 6.287 oz Body Mass Index (BMI) 26.9 Intake and Output for Last 24 Hours 07/01/18 07/02/18 07/03/18 23:59 23:59 23:59 Intake Total 4141 / 4141 3269 / 3269 2167 / 2167 Output Total 3650 / 3650 1100 / 1100 Balance 491 / 491 2169 / 2169 216 / 2166 Discharge Activity: Return to Normal Activity Call your doctor if your incision/area has: Increased Pain/ Swelling Call your doctor if you observe: Fever of 101 or Higher Home Medications: Medications to take at Discharge Omeprazole [Prilosec] 20 mg PO DAILY 06/29/18 Ciprofloxacin [Cipro] 500 mg PO BID 10 Days #20 tablet 07/03/18 Metronidazole [Flagyl] 500 mg PO Q8H 10 Days #30 tablet 07/03/18 Following Prescrptions Were Given to Patient: Metronidazole [Flagyl] 500 mg PO Q8H 10 Days #30 tablet Ciprofloxacin [Cipro] 500 mg PO BID 10 Days #20 tablet Primary Care Physician: [facility] Doctor,Out of [NON-STAFF] - Please Follow Up With: Lex Diaz MD When: Please call to schedule 2 week follow up appointment. [phone] Medical Necessity - Tobacco Use Smoking Status: Former smoker Tobacco Use: Cigarettes Meaningful Use Info Meaningful Use Diagnoses (Choose all that apply): None applicable
--- OUTSIDE RECORDS SUMMARY | 2018-10-01 13:35 | XMS RPT_ITS ---
:1970 Author Organization [facility] Care Team Providers Name Role Phone Primay Care Physicia, No Primary Care Unavailable Lex Diaz Admitting Unavailable Calabretta, Lex Attending Unavailable Calabretta, Lex Attending Unavailable Primay Care Physicia, No Primary Care Unavailable Calabretta, Lex Admitting Unavailable Calabretta, Lex Attending Unavailable Primay Care Physicia, No Primary Care Unavailable Calabretta, Lex Consulting Unavailable Calabretta, Lex Admitting Unavailable Calabretta, Lex Attending Unavailable Primay Care Physicia, No Primary Care Unavailable Calabretta, Lex Consulting Unavailable Calabretta, Lex Admitting Unavailable Calabretta, Lex Attending Unavailable Primay Care Physicia, No Primary Care Unavailable Calabretta, Lex Consulting Unavailable Calabretta, Lex Admitting Unavailable Calabretta, Lex Attending Unavailable Primay Care Physicia, No Primary Care Unavailable Calabretta, Lex Consulting Unavailable Calabretta, Lex Attending Unavailable Primay Care Physicia, No Referring Unavailable Calabretta, Lex Attending Unavailable Calabretta, Lex Referring Unavailable Primay Care Physicia, No Primary Care Unavailable PROBLEMS PROBLEMS DATE TYPE CONDITION / CODE ATTENDING STATUS SOURCE 07/17/2018 Unknown K57.20 - Calabretta, Active Jose Diverticulitis of [facility] large intestine with Hospital perforation and Repository abscess without bleeding / K57.20(ICD-10) 07/17/2018 Unknown K42.9 - Umbilical Calabretta, Active Jose hernia without [facility] obstruction or Hospital gangrene / Repository K42.9(ICD-10) PROCEDURES PROCEDURES No Procedure Records FoundRESULTS RESULTS OPERATIVE REPORT - Observed: 08/06/2018 Status: F Source: [facility] 12:47 PM [facility] REPOSITORY [facility] Medical Records Department [address] [place] [id number] Operative Report - Endoscopy MR#: [id number] Acct: [id number] Name: AUBREY CHAVEZ Rep #: [id number] : 1970 47 From: Lex Diaz MD PCP: Care Physician, No Primary Status: [facility] Patient Name: Aubrey Chavez Procedure Date: 08/05/2018 7:06 AM Date of : 1970 Age: 47 Procedure: Colonoscopy Indications: Follow-up of diverticulitis Providers: Lex Diaz MD Referring MD: Lex Diaz MD Medicines: Monitored Anesthesia Care Patient Profile: This is a 47 year old male. Refer to note in patient chart for documentation of history and physical. Last Colonoscopy: none. The patient's first colonoscopy is today. Complications: No immediate complications. Procedure: Pre-Anesthesia Assessment: - Prior to the procedure, a History and Physical was performed, and patient medications and allergies were reviewed. The patient's tolerance of previous anesthesia was also reviewed. The risks and benefits of the procedure and the sedation options and risks were discussed with the patient. All questions were answered, and informed consent was obtained. Prior Anticoagulants: The patient has taken no previous anticoagulant or antiplatelet agents. After reviewing the risks and benefits, the patient was deemed in satisfactory condition to undergo the procedure. After I obtained informed consent, the scope was passed under direct vision. Throughout the procedure, the patient's blood pressure, pulse, and oxygen saturations were monitored continuously. The Colonoscope was introduced through the anus and advanced to the cecum, identified by appendiceal orifice and ileocecal valve. The colonoscopy was performed without difficulty. The patient tolerated the procedure well. The quality of the bowel preparation was good. Scope In: 7:54:17 AM Scope Withdrawal Time 0 hours 6 minutes 13 seconds Scope Out: 8:06:40 AM Total Procedure Duration Time 0 hours 12 minutes 23 seconds Findings: Multiple small and large-mouthed diverticula were found in the sigmoid colon. The exam was otherwise without abnormality on direct and retroflexion views. Impression: - Diverticulosis in the sigmoid colon. - The examination was otherwise normal on direct and retroflexion views. - No specimens collected. Recommendation: - Discharge patient to home. - Resume previous diet. - Continue present medications. - Return to my office at appointment to be scheduled. - Repeat colonoscopy in 10 years for screening purposes. Procedure Code(s): --- Professional --- 65868, Colonoscopy, flexible; diagnostic, including collection of specimen(s) by brushing or washing, when performed (separate procedure) Diagnosis Code(s): --- Professional --- K57.32, Diverticulitis of large intestine without perforation or abscess without bleeding K57.30, Diverticulosis of large intestine without perforation or abscess without bleeding CPT copyright 2017 [employer]. All rights reserved. The codes documented in this report are preliminary and upon linking machine operator review may be revised to meet current compliance requirements. Lex Diaz MD 08/05/2018 8:11:16 AM This report has been signed electronically. Number of Addenda: 0 Note Initiated On: 08/05/2018 7:06 AM 08/06/18 1246 Date Lex Diaz MD Cosigner Signature: Date (if indicated) CC: No Primary Care Physician; Lex Diaz MD Date Dictated: 08/05/18705 Date Transcribed: Milk Powder Grinder: YAMIL Signed SURGERY VISIT REPORT Observed: 07/17/2018 Status: F Source: [facility] 2:18 PM [facility] REPOSITORY [facility] [address] [place] [address]. [address] [place] [address] OFFICE VISIT Date of Service: 07/17/18 MR#: [id number] Acct: [id number] Name: AUBREY CHAVEZ Rep #: [id number] : 1970 Provider: Lex Diaz MD Age/Sex: 47/M Location: [facility] Status: Signed Intake Vital Signs07/17/18 Body Mass Index (BMI) 26.9 07/17/18 Height 5 ft 9 in 07/17/18 Weight: 189 lb Intake Visit Reasons: [facility] IP Perforated Diverticulitis Chief Complaint: ABD pain and nausea [employer]op Riv[employer] Machine Operator Required: No Is patient in pain?: Yes (umbilicus) Allergies No Known Allergies Allergy (Verified 07/17/18 14:06) Medications Omeprazole [Prilosec] 20 mg PO DAILY 06/29/18 [History Confirmed 07/17/18] PFSH Medical History GERD (gastroesophageal reflux disease) (Acute) HTN (hypertension) (Chronic) Diverticulitis of colon with perforation (Acute) Surgical History S/P nasal surgery (Acute) Family History Mother Heart disease Father Heart disease Cancer Social History Smoking Status: Former smoker alcohol intake: current alcohol intake frequency: a few times a month HPI HPI HPI: AUBREY CHAVEZ, is a 47 M who presents to the office today for follow-up after hospital admission for perforated diverticulitis. The patient had been perforation of sigmoid during episode of diverticulitis. Patient was treated conservatively and is doing well. He is having some diarrhea and just finished his antibiotics. He is only having pain at his umbilicus where he has an umbilical hernia. ROS General General: No weight change or fatigue Cardio Cardiovascular: Yes high blood pressure; no murmur, pacemaker, heart disease, atrial fibrillation, heart attack, heart stent, palpitations, shortness of breat with exertion or chest pain Psych Psychiatric: No depression or anxiety Resp Respiratory: No shortness of breath, No sleep apnea, No cough, No COPD, No asthma, No emphysema, No wheezing Gastro Gastrointestinal: Yes abdominal pain, No nausea or vomiting, Yes diarrhea, No constipation, No blood in stool, Yes acid reflux, No hemorrhoids, No ulcers, No gallbladder problem, No black,tarry stools Bry Hematologic: No blood thinners Exam Const General: cooperative Orientation: alert, oriented x3 Resp Effort AND Inspection: normal respiratory effort Auscultation: clear to auscultation bilaterally Cardio Rate: regular rate Rhythm: regular rhythm Heart Sounds: no murmurs GI Inspection: non-distended Palpation: soft, nontender, hernia umbilical Assessment AND Plan 1. Diverticulitis of large intestine with perforation without bleeding K57.20 Plan 1. The patient has had 3 bouts of diverticulitis that he knows of and 1 of these was complicated by perforation. I recommend the patient have sigmoid colectomy. The patient does have diffuse diverticulosis of the transverse descending and sigmoid colon. The perforation appears to be in the mid sigmoid. On the CAT scan the patient also appear to have distal strictures in the rectosigmoid junction. I recommend obtaining a colonoscopy before proceeding with colectomy. I will plan for colonoscopy in 2 weeks. I will follow-up with him after that to discuss possible colectomy plans. If the strictures are very low I will send him to a colorectal surgeon same he may have a low anastomosis. 2. I explained endoscopy in detail to the patient. I explained the risks including but not limited to stroke or heart attack with anesthesia, perforation of the GI tract, bleeding, infection. I explained that any of these could necessitate further emergency surgery. The patient understands and all questions were answered sufficiently. The patient wishes to proceed with procedure. Orders Orders: 2. Umbilical hernia without obstruction and without gangrene K42.9 Plan 1. Patient has a small incarcerated umbilical hernia. I explained that when we proceed with surgery I can repair this umbilical hernia as well. Lex Diaz MD Pager: [facility] [address] [place] [address], [address] [place] [address] Office: Coding Level of Care Code Off vis,est,level 3 Diagnoses Diverticulitis of large intestine with perforation without bleeding K57.20 Diverticulitis bleeding: without bleeding Umbilical hernia without obstruction and without gangrene K42.9 Obstruction and gangrene presence: without obstruction or gangrene 07/17/18 1418 <Electronically signed by Lex Diaz MD> Date Lex Diaz MD Cosigner Signature: Date (if applicable) CC: DISCHARGE SUMMARY Observed: 07/04/2018 Status: F Source: [facility] 9:53 AM [facility] REPOSITORY [facility] Medical Records Department [address] [place] [address] Discharge Summary 07/03/18 0906 MR#: [id number] Acct: [id number] Name: TAWANDAMAGDALENEAUBREY Rep #: [id number] : 1970 47 From: Lex Diaz MD PCP: Care Physician, No Primary Status: DIS IN Y Location[place] [facility] [id number] Discharge Date and Diagnosis Date of Admission: 06/29/18 Date of Discharge: 07/03/18 - Primary Discharge Diagnosis Active and Suspected Problems Diverticulitis of colon with perforation (Acute) Hospital Course and Treatment Imaging Results: 07/03/18 05:55 CT Abd [Abdomen/Pelvis WITH Contrast] [CT] AM (NON MEDS) Clinical Impression(s) from Imaging Studies Abdomen/Pelvis CT 06/29/18 15:11 IMPRESSION: There is acute diverticulitis in the distal descending colon. There is adjacent contained rupture with a 2.5 cm focus of air just medial to the distal descending colon. There is no bowel obstruction, ascites or abscess formation. There is no free air in the upper or anterior abdomen. Electronically Signed: Padmini Murphy MD at 18:48 EST Tel Direct: [phone], Service support , Abdomen/Pelvis CT 07/03/18 05:55 IMPRESSION: Redemonstration of acute diverticulitis of the proximal sigmoid colon. Localized collection of extravasated air with surrounding fat infiltration is not significantly different from the previous exam. No demonstrated fluid-containing abscess. Small nonobstructive left renal calculus. No demonstrated ureteral calculus or hydronephrosis. Mild splenomegaly. Atherosclerosis. Small liver cysts. Electronically Signed: Sixto Murphy MD at 6:50 EST , Service support , Operations: None Procedures: None Summary of Care Provided: The patient is a 47 year old M who presented to the emergency room with left lower quadrant pain. CT revealed a contained perforation of the sigmoid colon with diverticulitis. Patient was admitted and kept n.p.o. on IV antibiotics for several days until he is passing gas and pain was resolved. At that time the patient was started on clear liquid diet and he was tolerating clear liquid diet and a repeat scan was done showing that the air collection had not grown and was still contained with no abscess. At that time the patient was advanced to regular diet once he is tolerating regular diet he was discharged home on p.o. antibiotics. He will follow-up with me in 2 weeks and we will schedule him for colonoscopy and discuss possible elective sigmoid colectomy. - Physical Exam Vital Signs Temp Pulse Resp BP Pulse Ox 98.3 F 56 L 18 127/90 H 97 07/03/18 07:46 07/03/18 07:46 07/03/18 07:46 07/03/18 07:46 07/03/18 07:46 Oxygen Delivery Method Room Air Weight: 187 lb 6.287 oz Body Mass Index (BMI) 26.9 Intake and Output for Last 24 Hours Intake Total 4141 / 4141 3269 / 3269 2167 / 2167 Output Total 3650 / 3650 1100 / 1100 Balance 491 / 491 2169 / 216 216 / 216 Discharge Activity: Return to Normal Activity Call your doctor if your incision/area has: Increased Pain/ Swelling Call your doctor if you observe: Fever of 101 or Higher Home Medications: Medications to take at Discharge Omeprazole [Prilosec] 20 mg PO DAILY 06/29/18 Ciprofloxacin [Cipro] 500 mg PO BID 10 Days #20 tablet 07/03/18 Metronidazole [Flagyl] 500 mg PO Q8H 10 Days #30 tablet 07/03/18 Following Prescrptions Were Given to Patient: Metronidazole [Flagyl] 500 mg PO Q8H 10 Days #30 tablet Ciprofloxacin [Cipro] 500 mg PO BID 10 Days #20 tablet Primary Care Physician: [facility] Doctor,Out of [NON-STAFF] - Please Follow Up With: Lex Diaz MD When: Please call to schedule 2 week follow up appointment. [phone] Medical Necessity - Tobacco Use Smoking Status: Former smoker Tobacco Use: Cigarettes Meaningful Use Info Meaningful Use Diagnoses (Choose all that apply): None applicable 07/04/18 0953 <Electronically signed by Lex Diaz MD> Date Lex Diaz MD Cosigner Signature (if applicable): Date CC: No Primary Care Physician; Lex Diaz MD Signed DISCHARGE INSTRUCTION Observed: 07/03/2018 Status: F Source: [facility] 9:06 AM [facility] REPOSITORY [facility] Medical Records Department [address] [place] [address] Instructions for Home/Discharge Instructions 07/03/18903 MR#: [id number] Acct: [id number] Name: AUBREY CHAVEZ Rep #: [id number] : 1970 47 From: Lex Diaz MD PCP: Care Physician, No Primary Status: ADM IN - Discharge Diagnoses Current Active Problems: Current Active and Chronic Problems Diverticulitis of colon with perforation (Acute) You will use the following diet at home:: Fiber restricted Your food should be the consistency of: Regular Your liquids should be the consistency of: Regular/Thin Discharge Activity: Return to Normal Activity Call your doctor if your incision/area has: Increased Pain/ Swelling Call your doctor if you observe: Fever of 101 or Higher Allergies/Adverse Reactions: Allergies No Known Allergies Allergy (Verified 06/29/18 14:59) Medications to take at Discharge Omeprazole [Prilosec] 20 mg PO DAILY 06/29/18 Ciprofloxacin [Cipro] 500 mg PO BID 10 Days #20 tablet 07/03/18 Metronidazole [Flagyl] 500 mg PO Q8H 10 Days #30 tablet 07/03/18 The following prescriptions were given: Metronidazole [Flagyl] 500 mg PO Q8H 10 Days #30 tablet Ciprofloxacin [Cipro] 500 mg PO BID 10 Days #20 tablet Primary Care Physician: [facility] Doctor,Out of [NON-STAFF] - Test Results: Test results from this visit will be discussed in further detail at your follow-up appointment, if applicable. Please Follow Up With: Lex Diaz MD When: Please call to schedule 2 week follow up appointment. [phone] 07/03/18905 <Electronically signed by Lex Diaz MD> Date Lex Diaz MD CC: No Primary Care Physician ABDOMEN/PELVIS WITH Observed: 07/03/2018 Status: F Source: [facility] CONTRAST 12:00 AM [facility] REPOSITORY [facility] Imaging Services [address] [place] [address] Abdomen/Pelvis WITH Contrast MR#: [id number] Acct: [id number] Name: AUBREY CHAVEZ Rep #: [id number] : 1970 M 47 From: Sixto Murphy MD PCP: Care Physician, No Primary Status: ADM IN Study: Abdomen/Pelvis WITH Contrast Date of Exam: 07/03/18 Exam# [id number] Ordering Dr: Lex Diaz MD STUDY: CT ABDOMEN AND PELVIS WITH CONTRAST REASON FOR EXAM: Male, 47 years old. Follow-up contained sigmoid perforation. Left lower quadrant tenderness. RADIATION DOSAGE (If Supplied By Facility): CTDIvol = ( 17.45 ) mGy, DLP = ( 965.87 ) mGycm TECHNIQUE: Transaxial images were obtained from the dome of the diaphragm to the symphysis pubis with oral contrast. 100mL ml of Isovue 300 contrast was administered. Sagittal and coronal images were reconstructed. Individualized dose optimization techniques were used for this CT. COMPARISON: 06/29/2018. FINDINGS: The visualized lung bases are unremarkable. The visualized portions of the heart are within normal limits. There are several small liver cysts. Normal gallbladder and extrahepatic biliary system. There is mild splenomegaly. Normal pancreas. Normal bilateral adrenal glands. Normal right kidney. There is a 4 mm nonobstructive left lower pole renal calculus. There is no demonstrated ureteral calculus or hydronephrosis. Normal visualized stomach. Normal small intestine. There there is extensive colonic diverticulosis, with acute diverticulitis of the proximal sigmoid colon. There is a collection of extravasated air anteromedial to the involved colonic segment with surrounding fat infiltration. There is no associated fluid collection. The appearance is not significantly different from the recent previous study. There is no evidence for remote free intraperitoneal air.. The appendix is visualized on axial images [id number] appears normal.. There is mild atherosclerotic calcification of the abdominal aorta, without a demonstrated aneurysm. Normal inferior vena cava. Normal retroperitoneum. Normal urinary bladder. There is an umbilical hernia containing fat, but no bowel. There is also small left inguinal hernia containing fat, but no bowel. There is bilateral L5 spondylolysis, with associated grade 1 spondylolisthesis L5-S1. There are multilevel degenerative changes in the spine. CT/Abdomen/Pelvis WITH Contrast IMPRESSION: Redemonstration of acute diverticulitis of the proximal sigmoid colon. Localized collection of extravasated air with surrounding fat infiltration is not significantly different from the previous exam. No demonstrated fluid-containing abscess. Small nonobstructive left renal calculus. No demonstrated ureteral calculus or hydronephrosis. Mild splenomegaly. Atherosclerosis. Small liver cysts. Electronically Signed: Sixto Murphy MD at 6:50 EST , Service support , CC: No Primary Care Physician; Lex Diaz MD Milk Powder Grinder: Signed BASIC METABOLIC Collected: 07/02/2018 Status: F Source: [facility] PROFILE (BMP) 5:22 AM [facility] REPOSITORY TYPE CODE TESTS RESULT OUT OF RANGE REFERENCE UNITS LAB L501.0100 74-106 mg/dL Normal GLU 74 Result Comment: Please note revised GLUCOSE reference range effective 2017. LAB L501.1000 7-18 mg/dL Normal BUN 13 LAB L501.1100 0.70-1.30 mg/dL Normal CREAT,SERUM 0.96 Result Comment: The validity of the calculated GFR AND GFRAA in patients over 70 years has not been determined. Clinical correlation is essential. LAB L501.1110 >60 mL/min Normal EST GFR 88 Result Comment: Non- GFR Calc LAB L501.1115 >60 mL/min Normal EST GFR - AA 107 Result Comment: GFR Calc LAB L501.1255 ml/min Normal Estimated CRCL 96.11 LAB L501.1300 10-20 RATIO Normal BUN/CRE 13.5 LAB L501.2200 8.5-10 mg/dL Normal .1 CA 8.6 LAB L501.5300 136-14 mmol/L Normal 5 NA 141 LAB L501.5600 3.5-5. mmol/L Normal 1 K 4.1 LAB L501.5900 98-107 mmol/L Normal CL 106 LAB L501.6100 21.0-3 mmol/L Normal 2.0 CO2 27.0 LAB L501.6200 5-15 Normal GAP 8 Performed By: #### L500.2500 #### [facility] [address] [facility]. [place], [place], [id number] CBC W/DIFF, AUTOMATED Collected: 07/02/2018 Status: F Source: [facility] 5:22 AM [facility] REPOSITORY TYPE CODE TESTS RESULT OUT OF RANGE REFERENCE UNITS LAB L100.1000 4.4-11.0 K/mm3 Normal WBC 7.9 LAB L100.1200 4.6-6.2 M/mm3 Normal RBC 4.66 LAB L100.1300 13.0-16.5 g/dl Normal HGB 14.0 LAB L100.1400 40-54 % Low HCT 39.8 LAB L100.1500 80-94 fL Normal MCV 85.4 LAB L100.1600 27.0-32.0 pg Normal MCH 30.0 LAB L100.1700 32-36 g/gl Normal MCHC 35.2 LAB L100.1810 11.6-14.6 % Normal RDW CV 12.1 LAB L100.1820 35.1-43.9 fl Normal RDW SD 36.8 LAB L100.1900 150-450 K/mm3 Normal PLT 177 LAB L100.2000 6.2-12.0 fl Normal MPV 10.5 LAB L100.2100 47-70 % High NEUT% 75.6 LAB L100.2200 19-41 % Low LY% 12.8 LAB L100.2300 0-10 % Normal MONO% 9.6 LAB L100.2400 0-5 % Normal EO% 1.4 LAB L100.2500 0-1 % Normal BASO% 0.1 LAB L100.2550 0.0-0.9 % Normal IM GRAN % 0.500 Result Comment: IG% - Immature Granulocytes (promyelocytes, myelocytes and metamyelocytes) > 1% indicates that a LEFT SHIFT is Present. LAB L100.2620 2.0-7.7 X10 3/uL Normal Absolute Neut 6.0 LAB L100.2720 0.83-4.51 X10 3/ul Normal Absolute Lymph 1.01 Performed By: #### L100.0100 #### [facility] [address] [place], [place], [address] CBC W/DIFF, AUTOMATED Collected: 07/01/2018 Status: F Source: JOSE 5:40 AM [facility] REPOSITORY TYPE CODE TESTS RESULT OUT OF RANGE REFERENCE UNITS LAB L100.1000 4.4-11.0 K/mm3 Normal WBC 10.8 LAB L100.1200 4.6-6.2 M/mm3 Normal RBC 4.85 LAB L100.1300 13.0-16.5 g/dl Normal HGB 14.7 LAB L100.1400 40-54 % Normal HCT 41.5 LAB L100.1500 80-94 fL Normal MCV 85.6 LAB L100.1600 27.0-32.0 pg Normal MCH 30.3 LAB L100.1700 32-36 g/gl Normal MCHC 35.4 LAB L100.1810 11.6-14.6 % Normal RDW CV 12.2 LAB L100.1820 35.1-43.9 fl Normal RDW SD 38.0 LAB L100.1900 150-450 K/mm3 Normal PLT 161 LAB L100.2000 6.2-12.0 fl Normal MPV 10.7 LAB L100.2100 47-70 % High NEUT% 78.1 LAB L100.2200 19-41 % Low LY% 11.8 LAB L100.2300 0-10 % Normal MONO% 9.1 LAB L100.2400 0-5 % Normal EO% 0.5 LAB L100.2500 0-1 % Normal BASO% 0.2 LAB L100.2550 0.0-0.9 % Normal IM GRAN % 0.300 Result Comment: IG% - Immature Granulocytes (promyelocytes, myelocytes and metamyelocytes) > 1% indicates that a LEFT SHIFT is Present. LAB L100.2620 2.0-7.7 X10 3/uL High Absolute Neut 8.5 LAB L100.2720 0.83-4.51 X10 3/ul Normal Absolute Lymph 1.28 Performed By: #### L100.0100 #### [facility] [address] [place], [address] BASIC METABOLIC Collected: 07/01/2018 Status: F Source: JOSE PROFILE (BMP) 5:40 AM [facility] REPOSITORY TYPE CODE TESTS RESULT OUT OF RANGE REFERENCE UNITS LAB L501.0100 74-106 mg/dL Normal GLU 84 Result Comment: Please note revised GLUCOSE reference range effective 2017. LAB L501.1000 7-18 mg/dL Normal BUN 14 LAB L501.1100 0.70-1.30 mg/dL Normal CREAT,SERUM 0.85 Result Comment: The validity of the calculated GFR AND GFRAA in patients over 70 years has not been determined. Clinical correlation is essential. LAB L501.1110 >60 mL/min Normal EST GFR 101 Result Comment: Non- GFR Calc LAB L501.1115 >60 mL/min Normal EST GFR - AA 122 Result Comment: GFR Calc LAB L501.1255 ml/min Normal Estimated CRCL 108.55 LAB L501.1300 10-20 RATIO BUN/CRE Normal 16.4 LAB L501.2200 8.5-10 mg/dL .1 CA Normal 8.5 LAB L501.5300 136-14 mmol/L 5 NA Normal 138 LAB L501.5600 3.5-5. mmol/L 1 K Normal 3.9 LAB L501.5900 98-107 mmol/L CL Normal 106 LAB L501.6100 21.0-3 mmol/L 2.0 CO2 Normal 23.0 LAB L501.6200 5-15 GAP Normal 9 Performed By: #### L500.2500 #### [facility] [address] [place], [address] CBC W/DIFF, AUTOMATED Collected: 06/30/2018 Status: F Source: JOSE 5:38 AM [facility] REPOSITORY TYPE CODE TESTS RESULT OUT OF RANGE REFERENCE UNITS LAB L100.1000 4.4-11.0 K/mm3 Normal WBC 10.8 LAB L100.1200 4.6-6.2 M/mm3 Normal RBC 5.05 LAB L100.1300 13.0-16.5 g/dl Normal HGB 15.7 LAB L100.1400 40-54 % Normal HCT 43.6 LAB L100.1500 80-94 fL Normal MCV 86.3 LAB L100.1600 27.0-32.0 pg Normal MCH 31.1 LAB L100.1700 32-36 g/gl Normal MCHC 36.0 LAB L100.1810 11.6-14.6 % Normal RDW CV 12.6 LAB L100.1820 35.1-43.9 fl Normal RDW SD 38.8 LAB L100.1900 150-450 K/mm3 Normal PLT 178 LAB L100.2000 6.2-12.0 fl Normal MPV 10.8 LAB L100.2100 47-70 % High NEUT% 75.1 LAB L100.2200 19-41 % Low LY% 15.2 LAB L100.2300 0-10 % Normal MONO% 8.5 LAB L100.2400 0-5 % Normal EO% 0.5 LAB L100.2500 0-1 % Normal BASO% 0.2 LAB L100.2550 0.0-0.9 % Normal IM GRAN % 0.500 Result Comment: IG% - Immature Granulocytes (promyelocytes, myelocytes and metamyelocytes) > 1% indicates that a LEFT SHIFT is Present. LAB L100.2620 2.0-7.7 X10 3/uL High Absolute Neut 8.1 LAB L100.2720 0.83-4.51 X10 3/ul Normal Absolute Lymph 1.63 Performed By: #### L100.0100 #### [facility] [address] [place], [place], [address] BASIC METABOLIC Collected: 06/30/2018 Status: F Source: CRUMP PROFILE (BMP) 5:38 AM [facility] REPOSITORY TYPE CODE TESTS RESULT OUT OF RANGE REFERENCE UNITS LAB L501.0100 74-106 mg/dL Normal GLU 98 Result Comment: Please note revised GLUCOSE reference range effective 2017. LAB L501.1000 7-18 mg/dL Normal BUN 18 LAB L501.1100 0.70-1.30 mg/dL Normal CREAT,SERUM 1.10 Result Comment: The validity of the calculated GFR AND GFRAA in patients over 70 years has not been determined. Clinical correlation is essential. LAB L501.1110 >60 mL/min Normal EST GFR 75 Result Comment: Non- GFR Calc LAB L501.1115 >60 mL/min Normal EST GFR - AA 91 Result Comment: GFR Calc LAB L501.1255 ml/min Normal Estimated CRCL 83.88 LAB L501.1300 10-20 RATIO Normal BUN/CRE 16.4 LAB L501.2200 8.5-10 mg/dL Normal .1 CA 8.6 LAB L501.5300 136-14 mmol/L Normal 5 NA 138 LAB L501.5600 3.5-5. mmol/L Normal 1 K 4.2 LAB L501.5900 98-107 mmol/L Normal CL 103 LAB L501.6100 21.0-3 mmol/L Normal 2.0 CO2 27.0 LAB L501.6200 5-15 Normal GAP 8 Performed By: #### L500.2500, L501.2300, L501.5200 #### [facility] [address] [place], [address] PHOSPHORUS Collected: 06/30/2018 Status: F Source: CRUMP 5:38 AM [facility] REPOSITORY TYPE CODE TESTS RESULT OUT OF RANGE REFERENCE UNITS LAB L501.2300 2.5-4.9 mg/dL Normal PHOS 2.5 Performed By: #### L500.2500, L501.2300, L501.5200 #### [facility] [address] [place], [address] MAGNESIUM Collected: 06/30/2018 Status: F Source: CRUMP 5:38 AM [facility] REPOSITORY TYPE CODE TESTS RESULT OUT OF RANGE REFERENCE UNITS LAB L501.5200 1.6-2.6 mg/dL Normal MG 2.3 Performed By: #### L500.2500, L501.2300, L501.5200 #### [facility] [address] [place], [address] HISTORY AND PHYSICAL Observed: 06/29/2018 Status: F Source: CRUMP EXAM 7:58 PM [facility] REPOSITORY [facility] Medical Records Department [address] [place] [address] History and Physical 06/29/181950 MR#: [id number] Acct: [id number] Name: AUBREY CHAVEZ Rep #: [id number] : 1970 47 From: Lex Diaz MD PCP: Care Physician, No Primary Status: REG ER Y Location: ED Problem List (1) Diverticulitis of colon with perforation Status: Acute Qualifiers: Diverticulitis bleeding: without bleeding Qualified Code(s): K57.20 - Diverticulitis of large intestine with perforation and abscess without bleeding History of Present Illness Date of Admission: 06/29/18 Chief Complaint: Left lower quadrant pain The patient is a 47 year old M with a history of diverticulitis. He reports that he has had diverticulitis twice in the past. He says that yesterday he began having left lower quadrant pain. He is not have any blood in his stool. He says it is painful to pass gas and he has not passed any gas in the last several hours. He is not having any nausea or vomiting. He says he had a normal colonoscopy about 5-7 years ago. The pain is in his left lower quadrant and does not radiate. He is not having any fevers or chills. Past Medical History Allergies No Known Allergies Allergy (Verified 06/29/18 14:59) Home Medications: Ambulatory Orders Medication Instructions Recorded Omeprazole [Prilosec] 20 mg PO DAILY 06/29/18 Surgical History: no surgical history Smoking Status: Former smoker - *Family History Maternal History Items: Heart Disease Paternal History Items: Cancer, Heart Disease Review of Systems Constitutional: Denies: Anorexia, Fever HEENT: Denies: Difficulty Swallowing Cardiovascular: Denies: Chest Pain Respiratory: Denies: Cough Gastrointestinal: Reports: Abdominal Pain, Constipation, Nausea. Denies: Diarrhea, Vomiting Genitourinary: Denies: Dysuria Musculoskeletal: Denies: Joint Tenderness Skin: Denies: Dryness, Jaundice Neurological: Denies: Balance problems Psychiatric: Denies: Anxiety, Depression Hematologic/ Lymphatic: Denies: Anemia VTE Information - Inpt Only VTE Present on Admission: No VTE Mechan Device Prophylaxis: SCD's Patient Problems: Active and Suspected Problems Diverticulitis of colon with perforation (Acute) - Physical Exam General: Alert, Oriented x3, Cooperative, No apparent distress HEENT: Atraumatic, PERRLA, EOMI Neck: No JVD Lungs: Normal air movement Cardiovascular: Regular rate, Regular Rhythm Abdomen: Soft, Non-Distended, Tender - Tender in the left lower quadrant with no guarding or rebound Extremities: No clubbing Skin: No rashes Musculoskeletal: No Muscle Wasting Neurological: Cranial nerves II-XII grossly intact Psych/Mental Status: Normal Affect, Appropriate Vital Signs Temp Pulse Resp BP Pulse Ox 97.4 F L 115 H 18 146/108 H 95 06/29/18 15:00 06/29/18 19:00 06/29/18 19:00 06/29/18 19:00 06/29/18 19:00 Oxygen Delivery Method Room Air Weight: 189 lb 6.033 oz Body Mass Index (BMI) 27.9 Laboratory Tests Past 24 Hrs Clinical Impression(s) from Imaging Studies Abdomen/Pelvis CT 06/29/18 15:11 IMPRESSION: There is acute diverticulitis in the distal descending colon. There is adjacent contained rupture with a 2.5 cm focus of air just medial to the distal descending colon. There is no bowel obstruction, ascites or abscess formation. There is no free air in the upper or anterior abdomen. Electronically Signed: Padmini Murphy MD at 18:48 EST Tel Direct: [phone], Service support , Assessment/Plan All Active Problems Diverticulitis of colon with perforation (Acute) 47-year-old male with contained perforation of diverticulitis of the sigmoid colon 1. Patient has elevated white count and left lower quadrant pain. The patient reports his last colonoscopy was 5-7 years ago. The patient has CT scan which shows a contained perforation of the sigmoid colon. There is no free air at this time. The patient's CAT scan also appears to show an apple core lesion versus stricture in the sigmoid rectum junction. 2. I explained that since it is contained I would try conservative management in order to be able to do a colonoscopy and elective colectomy at a future date. I explained that if the patient's pain worsened at all I would repeat a CAT scan and check if the perforation was no longer contained and at that time I would have to perform emergency surgery. 3. I will start the patient on antibiotics and keep the patient n.p.o. SCDs for prophylaxis until 24 hours from now and I will start Lovenox. PPI. Lex Diaz MD Pager: [facility] [address] [place] [address], [address] [place] [address] Office: 06/29/181957 <Electronically signed by Lex Diaz MD> Date Lex Diaz MD Cosigner Signature: Date (if applicable) CC: No Primary Care Physician; Lex Diaz MD Signed EMERGENCY DEPARTMENT Observed: 06/29/2018 Status: F Source: CRUMP SUMMARY 7:45 PM [facility] REPOSITORY [facility] Medical Records Department [address] [place] [address] Emergency Department Summary 06/29/18 1513 MR#: [id number] Acct: [id number] Name: AUBREY CHAVEZ Rep #: [id number] : 1970 47 From: Avery Joe DO PCP: Care Physician, No Primary Status: REG ER - ER Visit Summary Date of Service: 06/29/18 Chief Complaint: Abdominal pain History of Present Illness: The patient is a 47 M who presents with abdominal pain that began yesterday. Patient states the pain is gradually getting worse. Patient states he has a history of diverticulosis but states this feels somewhat different. Patient states the pain is localized in the left lower quadrant. Patient denies any radiation. Patient admits to some nausea but denies any vomiting. Patient denies any diarrhea, melena, or hematochezia. Patient denies any urinary complaints. Patient states his pain is worse with certain movements and better with rest. Physical Examination: Vital signs showed an elevated blood pressure 134/115 and a tachycardia of 125. Patient is afebrile. Patient is in no acute distress. Remaining vital signs are normal. Oral mucosa is pink and moist. Neck is supple. Trachea is midline. Pupils are equal, round, and reactive to light bilaterally. Extraocular muscles are intact. Conjunctiva is clear. Heart was regular and tachycardic. Lungs are clear and equal bilaterally. Abdomen is soft. There is diffuse tenderness but worse over the left lower quadrant. There is no rebound or guarding noted. Cranial nerves II through XII are intact. There are no focal motor or sensory deficits noted. The remaining physical exam is within normal limits. Test Results: CBC showed a slight leukocytosis of 11.1. Total bilirubin slightly elevated at 1.7 and AST was slightly low at 10. The remaining labs were all within normal limits. CT scan of the abdomen and pelvis with oral and IV contrast shows diverticulitis with local perforation with a 2.5 cm collection of free air adjacent to the distal descending colon. Emergency Department Course and Treatment: Patient was given morphine and Zofran here. Case was discussed with Dr. Diaz. He will be in to evaluate the patient. He will admit the patient to his service. Disposition: Admit to hospital Impression: Diverticulitis with perforation This note was generated with Properati dictation software. It may contain incorrect words, spelling, and punctuation that were not noted in review of the chart prior to signing ED Disposition - Plan for ED Patient: Disposition: Acute Care Hospital [facility] Chief Complaint: Abd Pain Diagnosis: Diverticulitis of colon with perforation Referrals: [facility] Doctor,Out of [NON-STAFF] - What to do if you have Problems For any increased pain, shortness of breath, bleeding, nausea or vomiting, chest pain, or any unexpected problems, contact your Primary Care Provider. Call [facility] ([phone]) or report to the closest Emergency Room. Call 911 if necessary. 06/29/181944 <Electronically signed by Avery Joe DO> Date Avery Joe DO Cosigner Signature (If Indicated): Date CC: No Primary Care Physician URINALYSIS, COMPLETE Collected: 06/29/2018 Status: F Source: JOSE 4:50 PM [facility] REPOSITORY Order Comment: How was Urine Obtained? CLEAN CATCH TYPE CODE TESTS RESULT OUT OF RANGE REFERENCE UNITS LAB L400.3000 Yellow COLOR Normal Yellow LAB L400.3050 Clear Normal CLARITY Clear LAB L400.3200 Normal mg/dl Normal GLUCOSE, UR Normal LAB L400.3300 Negative mg/dL Normal BILIRUBIN URINE Negative LAB L400.3400 Negative mg/dl Normal KETONE UR Negative LAB L400.3465 1.002-1.030 Normal SP.GR. DIPSTX 1.015 LAB L400.3550 5.0 - 8.0 pH UR Normal 6.0 LAB L400.3600 Negative mg/dl High PROT 30 DIPSTX LAB L400.3700 Normal mg/dl High 4 UROBILI LAB L400.3750 Negative Normal NITRITE UR Negative LAB L400.3780 Negative /ul High 10 OCCULT BLOOD-UR LAB L400.3800 Negative /ul LEUK Normal ESTERASE Negative LAB L400.4050 0-5 /hpf WBC 0 Normal SEEN LAB L400.4100 0-5 /hpf Normal RBC-UA 0-5 SEEN LAB L400.4150 0-5 /hpf SQUAM Normal EPI 0-5 SEEN LAB L400.4300 None Seen /hpf 0 Normal BACTERIA SEEN LAB L400.4350 <or=2+ /hpf 0 Normal MUCUS, URINE SEEN Performed By: #### L400.0001 #### [facility] [address] [facility] [place], [place], [address] CBC W/DIFF, AUTOMATED Collected: 06/29/2018 Status: F Source: CRUMP 3:30 PM [facility] REPOSITORY TYPE CODE TESTS RESULT OUT OF RANGE REFERENCE UNITS LAB L100.1000 4.4-11.0 K/mm3 High WBC 11.1 LAB L100.1200 4.6-6.2 M/mm3 Normal RBC 5.41 LAB L100.1300 13.0-16.5 g/dl High HGB 16.8 LAB L100.1400 40-54 % Normal HCT 46.2 LAB L100.1500 80-94 fL Normal MCV 85.4 LAB L100.1600 27.0-32.0 pg Normal MCH 31.1 LAB L100.1700 32-36 g/gl High MCHC 36.4 LAB L100.1810 11.6-14.6 % Normal RDW CV 12.5 LAB L100.1820 35.1-43.9 fl Normal RDW SD 38.8 LAB L100.1900 150-450 K/mm3 Normal PLT 177 LAB L100.2000 6.2-12.0 fl Normal MPV 10.5 LAB L100.2100 47-70 % High NEUT% 75.6 LAB L100.2200 19-41 % Low LY% 15.1 LAB L100.2300 0-10 % Normal MONO% 8.4 LAB L100.2400 0-5 % Normal EO% 0.4 LAB L100.2500 0-1 % Normal BASO% 0.1 LAB L100.2550 0.0-0.9 % Normal IM GRAN % 0.400 Result Comment: IG% - Immature Granulocytes (promyelocytes, myelocytes and metamyelocytes) > 1% indicates that a LEFT SHIFT is Present. LAB L100.2620 2.0-7.7 X10 3/uL High Absolute Neut 8.4 LAB L100.2720 0.83-4.51 X10 3/ul Normal Absolute Lymph 1.68 Performed By: #### L100.0100 #### [facility] [address] [place], [address] COMPREHENSIVE METABOLIC Collected: 06/29/2018 Status: F Source: [facility] 3:30 PM [facility] REPOSITORY TYPE CODE TESTS RESULT OUT OF RANGE REFERENCE UNITS LAB L501.0100 74-106 mg/dL Normal GLU 105 Result Comment: Fasting Glucose result from 100 to 125 mg/dL suggests IMPAIRED HOMEOSTASIS per A.D.A. criteria. Please note revised GLUCOSE reference range effective 2017. LAB L501.1000 7-18 mg/dL Normal BUN 18 LAB L501.1100 0.70-1.30 mg/dL Normal CREAT,SERUM 1.16 Result Comment: The validity of the calculated GFR AND GFRAA in patients over 70 years has not been determined. Clinical correlation is essential. LAB L501.1110 >60 mL/min Normal EST GFR 71 Result Comment: Non- GFR Calc LAB L501.1115 >60 mL/min Normal EST GFR - AA 86 Result Comment: GFR Calc LAB L501.1255 ml/min Normal Estimated CRCL 77.03 LAB L501.1300 10-20 RATIO Normal BUN/CRE 15.5 LAB L501.1500 6.4-8. g/dL Normal 2 T PROT 8.1 LAB L501.1800 3.2-5. g/dL Normal 0 ALB 3.9 LAB L501.1950 2.2-4. g/dL Normal 2 GLOB 4.2 LAB L501.2000 0.9-2. RATIO Normal 4 A/G 0.9 LAB L501.2200 8.5-10 mg/dL Normal .1 CA 9.0 LAB L501.4100 15-37 U/L Low AST 10 LAB L501.4305 45-117 U/L Normal ALK P 83 LAB L501.4405 16-61 U/L Normal ALT 29 LAB L501.4600 0.20-1 mg/dL High .00 T BILI 1.70 LAB L501.5300 136-14 mmol/L Normal 5 NA 139 LAB L501.5600 3.5-5. mmol/L Normal 1 K 3.8 LAB L501.5900 98-107 mmol/L Normal CL 101 LAB L501.6100 21.0-3 mmol/L Normal 2.0 CO2 30.0 LAB L501.6200 5-15 Normal GAP 8 Performed By: #### L500.4050, L501.2450 #### [facility] [address] [place], [address] LIPASE Collected: 06/29/2018 Status: F Source: CRUMP 3:30 PM [facility] REPOSITORY TYPE CODE TESTS RESULT OUT OF RANGE REFERENCE UNITS LAB L501.2450 73-393 U/L Normal LIPASE 96 Performed By: #### L500.4050, L501.2450 #### [facility] [address] [place], [address] ABDOMEN/PELVIS WITH Observed: 06/29/2018 Status: F Source: CRUMP CONTRAST 3:13 PM [facility] REPOSITORY [facility] Imaging Services [address] [place] [address] Abdomen/Pelvis WITH Contrast MR#: [id number] Acct: [id number] Name: AUBREY CHAVEZ Rep #: [id number] : 1970 M 47 From: Padmini Murphy MD PCP: Care Physician, No Primary Status: REG ER Study: Abdomen/Pelvis WITH Contrast Date of Exam: 06/29/18 Exam# [id number] Ordering Dr: Avery Joe DO STUDY: CT ABDOMEN AND PELVIS WITH CONTRAST REASON FOR EXAM: Male, 47 years old. Abdominal pain RADIATION DOSAGE (If Supplied By Facility): CTDIvol = ( 16.77 ) mGy, DLP = ( 1141.76 ) mGycm TECHNIQUE: Transaxial images were obtained from the lower chest to the upper thighs with oral contrast. 100 ml of Isovue 300 contrast was administered. Sagittal and coronal images were reconstructed. Individualized dose optimization techniques were used for this CT. COMPARISON: None. FINDINGS: Lower chest: Lower lungs: Minimal dependent atelectasis in both lung bases. Pleura: No pleural effusion. Cardiac: Heart size normal. Liver: Few scattered subcentimeter cysts. Spleen: Nonspecific prominence measuring 14 cm in the AP plane. Gallbladder and biliary system: Normal in appearance. Pancreas: Normal in appearance. Adrenal glands: Normal in appearance. Kidneys and collecting systems: Right: Normal in appearance. No dilatation of collecting system. Left: 3 mm nonobstructing stone in the lower pole. Subcentimeter benign cysts in the lower pole. No dilatation of collecting system. Gastrointestinal: Stomach: Normal in appearance. Small bowel: Normal in appearance. Colon: Scattered diverticula. There is wall thickening and surrounding stranding in the distal descending colon, and there is a 2.5 cm extraluminal focus of air medial to the distal descending colon. Appendix: Normal in appearance. Vessels: Arterial: Minimal scattered vascular calcifications. Venous: Unremarkable. Retroperitoneum/mesentery: Lymph nodes: Small retroperitoneal nodes. Fluid/free air: No free fluid or anterior free air. Pelvis: Bladder: Normal in appearance. Reproductive organs: Normal size prostate with calcifications. No pelvic free fluid. Soft tissues: Small umbilical hernia containing fat. Bones: Moderate degenerative changes. CT/Abdomen/Pelvis WITH Contrast IMPRESSION: There is acute diverticulitis in the distal descending colon. There is adjacent contained rupture with a 2.5 cm focus of air just medial to the distal descending colon. There is no bowel obstruction, ascites or abscess formation. There is no free air in the upper or anterior abdomen. 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 ing:ENRoom: Repository AC10 07/17/2018/ [id number] Ambulatory BMSBuilding:B [place] 9 2 [place] Repository 06/29/2018 [id number] Ambulatory BMSBuilding:B [place] 9 [place].[facility] Repository 06/29/2018/ [id number] [facility], Inpatient [place] 8 6 Lex Encounter [facility] ing:CC7Bsvk: Repository [id number]: 1 06/29/2018 [id number] [facility], Ambulatory BMSBuilding:B [place] 2 Lex [place].[facility] Repository 06/29/2018 [id number] [facility], Ambulatory BMSBuilding:B [place] 4 Lex [place].[facility] Repository 06/29/2018 [id number] [facility], Ambulatory BMSBuilding:B [place] 9 Lex [place].[facility] Repository 06/29/2018 [id number] [facility], Ambulatory BMSBuilding:B [place] 4 Lex [place].[facility] Repository PAYERS PAYERS ENCOUNTER GUARANTOR PAYER SUBSCRIBER SOURCE 08/05/2018 AUBREY Knapp Primary AUBREY Harden [id number] Insurance:[facility] ZO: [facility] FRANKIE DAVIS y Number: [id number] [id number] Repository [address]Tgy: (330) Date:7800-42-40UI [phone] () [address], [place] [address]PG: 08/05/2018 Secondary NOT GIVENUNK Jose Insurance:SELF PAY [facility] Hospital Number: Effective Repository Date:2018-07-17 07/17/2018 AUBREY C Primary AUBREY C [place] [id number] Insurance:ANTHEMPolic BOHLENDOB: Community FRANKIE DRLOT y Number: [id number] [id number] Repository [address]Jnt: (330) Date:2849-74-64HV [phone] () [id number], [place] [address]ZL: 07/17/2018 Secondary NOT GIVENUNK [place] Insurance:SELF PAY [facility] Hospital Number: Effective Repository Date:2018-07-14 06/29/2018 AUBREY [id number] Primary AUBREY BOHLENDOB: Jose FRANKIE DRLOT Insurance:ANTHEMPolic [id number] y Number: Hospital [address]Woe: (330) [id number] Repository [phone] () Date:7417-95-95HJ [address], [place] [address]SH: 06/29/2018 Secondary NOT GIVENUNK [place] Insurance:SELF PAY [facility] Hospital Number: Effective Repository Date:2018-06-29 06/29/2018 AUBREY C Primary AUBREY C [place] [id number] Insurance:ANTHEMPolic BOHLENDOB: Community FRANKIE DRLOT y Number: [id number] [id number] Repository [address]Bpm: (330) Date:0234-31-63PA [phone] () [id number], [place] [address]VC: 06/29/2018 Secondary NOT GIVENUNK [place] Insurance:SELF PAY [facility] Hospital Number: Effective Repository Date:2018-06-29 06/29/2018 AUBREY C Primary AUBREY C [place] [id number] Insurance:ANTHEMPolic BOHLENDOB: [facility] FRANKIEKYLEIGH DAVIS y Number: [id number] [id number] Repository [address]Ctq: (330) Date:8979-31-29XX [phone] () [id number] [place] [address]FR: 06/29/2018 Secondary NOT GIVENUNK Jose Insurance:SELF PAY [facility] Number: Effective Repository Date:2018-06-29 06/29/2018 AUBREY C Primary AUBREY C [place] [id number] Insurance:ANTHEMPolic BOHLENDOB: [facility] FRANKIE DAVIS y Number: [id number] [id number] Repository [address]Ijk: (330) Date:7937-67-50RN [phone] () SHERLYN WOOTEN [id number]: 06/29/2018 Secondary NOT GIVENUNK [place] Insurance:SELF PAY [facility] Number: Effective Repository Date:2018-06-29 06/29/2018 AUBREY C Primary AUBREY C [place] [id number] Insurance:ANTHEMPolic BOHLENDOB: [facility] FRNAKIE DAVIS y Number: [id number] [id number] Repository [address]Few: (330) Date:8101-35-41JA [phone] () SHERLYN WOOTEN [id number]: 06/29/2018 Secondary NOT GIVENUNK [place] Insurance:SELF PAY [facility] Number: Effective Repository Date:2018-06-29 06/29/2018 AUBREY C Primary AUBREY C [place] [id number] Insurance:ANTHEMPolic BOHLENDOB: [facility] FRANKIE DAVIS y Number: [id number] [id number] Repository [address]Vti: (330) Date:2801-66-05KM [phone] () SHERLYN WOOTEN [address]QN: 06/29/2018 Secondary NOT GIVENUNK Jose Insurance:SELF PAY [facility] Effective Repository Date:2018-06-29
== END 2018-07-03 12:28 | disposition home or self-care (01) | DRG 379 ==
LOC: ED 19:45 → MS3 20:07
PROVIDERS: Admitting Provider Surgery; Emergency Provider Emergency Medicine; Visit Provider Surgery
DX: K57.21 Diverticulitis of large intestine with perforation and abscess with bleeding (principal)
CPT/HCPCS: 36415; 74177; 80048; 80053; 81001; 83690; 83735; 84100; 85025; 97802; 99282; 99406; J7030; Q9967; A4216; J2405

== ENCOUNTER 2018-08-05 06:46 | Day surgery (SDC) | payer BC, SELFPAY ==
[2018-07-17 14:06] VITALS: BMI 26.9
[2018-08-05 07:25] VITALS: BP 139/79; PULSE 68; RESP 16; TEMP 36.8; O2SAT 94; BMI 26.5
[2018-08-05 08:10] VITALS: BP 104/76; BP 139/79; PULSE 61; RESP 16; TEMP 36.7; O2SAT 94
[2018-08-05 08:15] VITALS: BP 104/76; BP 139/79; PULSE 61; RESP 16; O2SAT 93
[2018-08-05 08:20] VITALS: BP 108/78; BP 139/79; PULSE 60; RESP 16; O2SAT 96
[2018-08-05 08:25] VITALS: BP 120/82; BP 139/79; PULSE 58; RESP 16; TEMP 36.4; O2SAT 97
[2018-08-05 08:46] VITALS: BP 139/79
--- NOTE | 2018-08-06 12:47 | OP.ENDO_ITS ---
Patient Name: Ziggy Suarez Procedure Date: 08/05/2018 7:06 AM Date of : 1970 Age: 47 Procedure: Colonoscopy Indications: Follow-up of diverticulitis Providers: Lex Diaz MD Referring MD: Lex Diaz MD Medicines: Monitored Anesthesia Care Patient Profile: This is a 47 year old male. Refer to note in patient chart for documentation of history and physical. Last Colonoscopy: none. The patient's first colonoscopy is today. Complications: No immediate complications. Procedure: Pre-Anesthesia Assessment: - Prior to the procedure, a History and Physical was performed, and patient medications and allergies were reviewed. The patient's tolerance of previous anesthesia was also reviewed. The risks and benefits of the procedure and the sedation options and risks were discussed with the patient. All questions were answered, and informed consent was obtained. Prior Anticoagulants: The patient has taken no previous anticoagulant or antiplatelet agents. After reviewing the risks and benefits, the patient was deemed in satisfactory condition to undergo the procedure. After I obtained informed consent, the scope was passed under direct vision. Throughout the procedure, the patient's blood pressure, pulse, and oxygen saturations were monitored continuously. The Colonoscope was introduced through the anus and advanced to the cecum, identified by appendiceal orifice and ileocecal valve. The colonoscopy was performed without difficulty. The patient tolerated the procedure well. The quality of the bowel preparation was good. Scope In: 7:54:17 AM Scope Withdrawal Time 0 hours 6 minutes 13 seconds Scope Out: 8:06:40 AM Total Procedure Duration Time 0 hours 12 minutes 23 seconds Findings: Multiple small and large-mouthed diverticula were found in the sigmoid colon. The exam was otherwise without abnormality on direct and retroflexion views. Impression: - Diverticulosis in the sigmoid colon. - The examination was otherwise normal on direct and retroflexion views. - No specimens collected. Recommendation: - Discharge patient to home. - Resume previous diet. - Continue present medications. - Return to my office at appointment to be scheduled. - Repeat colonoscopy in 10 years for screening purposes. Procedure Code(s): --- Professional --- 79123, Colonoscopy, flexible; diagnostic, including collection of specimen(s) by brushing or washing, when performed (separate procedure) Diagnosis Code(s): --- Professional --- K57.32, Diverticulitis of large intestine without perforation or abscess without bleeding K57.30, Diverticulosis of large intestine without perforation or abscess without bleeding CPT copyright 2017 [employer]. All rights reserved. The codes documented in this report are preliminary and upon hat blocking operator review may be revised to meet current compliance requirements. Lex Diaz MD 08/05/2018 8:11:16 AM This report has been signed electronically. Number of Addenda: 0 Note Initiated On: 08/05/2018 7:06 AM
--- OUTSIDE RECORDS SUMMARY | 2018-10-07 06:58 | XMS RPT_ITS ---
:1970 Author Organization OHIP Support Name Relationship Address Phone ASHWIN CHAVEZ Unavailable [address] + [place] [address] RADHA CHAVEZ Unavailable . + [place] [address] [place] SAM[place] Unavailable [address] + [place] [address] DEONTE CHAVEZKE Unavailable [address] + [place] [address] RADHA CHAVEZ Unavailable Unavailable + [place] Unavailable [address] + [place] [address] ASHWIN CHAVEZ Unavailable . + [place] [address] [place] SAMINA Unavailable [address] + [place] [address] ASHWIN CHAVEZ Unavailable Unavailable + [place] Unavailable [address] + [place] [address] ASHWIN CHAVEZ Unavailable Unavailable + [place] SAM[place] Unavailable [address] + [place] [address] ASHWIN CHAVEZ Unavailable Unavailable + [place] Unavailable [address] + [place] [address] ASHWIN CHAVEZ Unavailable Unavailable + [place] Unavailable [address] + [place] [address] ASHWIN CHAVEZ Unavailable Unavailable + [place] Unavailable [address] + [place] [address] ASHWIN CHAVEZ Unavailable Unavailable + [place] SAM[place] Unavailable [address] + [place] [address] Care Team Providers Name Role Phone Emily, Lex Admitting Unavailable Calabretta, Lex Attending Unavailable Primay Care Physicia, No Primary Care Unavailable Calabretta, Lex Consulting Unavailable Calabretta, Lex Attending Unavailable Calabretta, Lex Referring Unavailable Primay Care Physicia, No Primary Care Unavailable Calabretta, Lex Attending Unavailable Primay Care Physicia, No Referring Unavailable Calabretta, Lex Attending Unavailable Primay Care Physicia, No Referring Unavailable Calab[place]ta, Lex Admitting Unavailable Calab[place]ta, Lex Attending Unavailable Primay Care Physicia, No Primary Care Unavailable Calabretta, Lex Consulting Unavailable Calabretta, Lex Admitting Unavailable Calab[place]ta, Lex Attending Unavailable Primay Care Physicia, No Primary Care Unavailable Calabretta, Lex Consulting Unavailable Calabretta, Lex Admitting Unavailable Calabretta, Lxe Attending Unavailable Primay Care Physicia, No Primary Care Unavailable Calabretta, Lex Consulting Unavailable Calabretta, Lex Attending Unavailable Primay Care Physicia, No Primary Care Unavailable Primay Care Physicia, No Primary Care Unavailable Calabretta, Lex Admitting Unavailable Calabretta, Lex Attending Unavailable PROBLEMS PROBLEMS DATE TYPE CONDITION / CODE ATTENDING STATUS SOURCE 07/17/2018 Unknown K57.20 - Calabretta, Active Jose Diverticulitis of [facility] large intestine with Hospital perforation and Repository abscess without bleeding / K57.20(ICD-10) 07/17/2018 Unknown K42.9 - Umbilical Calab[place]ta, Active Jose hernia without [facility] obstruction or Hospital gangrene / Repository K42.9(ICD-10) PROCEDURES PROCEDURES No Procedure Records FoundRESULTS RESULTS OPERATIVE REPORT - Observed: 08/06/2018 Status: F Source: [facility] 12:47 PM [facility] REPOSITORY [facility] Medical Records Department [address] [place] [address] Operative Report - Endoscopy MR#: [id number] Acct: [id number] Name: AUBREY CHAVEZ Rep #: [id number] : 1970 47 From: Lex Diaz MD PCP: Care Physician, No Primary Status: [facility] Patient Name: Aubrey Chavez [...] screening purposes. Procedure Code(s): --- Professional --- 25190, Colonoscopy, flexible; diagnostic, including collection of specimen(s) by brushing or washing, when performed (separate procedure) Diagnosis Code(s): --- Professional --- K57.32, Diverticulitis of large intestine without perforation or abscess without bleeding K57.30, Diverticulosis of large intestine without perforation or abscess without bleeding CPT copyright 2017 [employer]. All rights reserved. The codes documented in this report are preliminary and upon user acceptance tester review may be revised to meet current compliance requirements. Lex Diaz MD 08/05/2018 8:11:16 AM This report has been signed electronically. Number of Addenda: 0 Note Initiated On: 08/05/2018 7:06 AM 08/06/18 1246 Date Lex Diaz MD Cosigner Signature: Date (if indicated) CC: No Primary Care Physician; Lex Diaz MD Date Dictated: 08/05/18705 Date Transcribed: Screen Machine Operator: YAMIL Signed SURGERY VISIT REPORT Observed: 07/17/2018 Status: F Source: [place] 2:18 PM [facility] REPOSITORY [facility] [address] [place] [address] [address] [place] [address] OFFICE VISIT Date of Service: 07/17/18 MR#: [id number] Acct: [id number] Name: AUBREY CHAVEZ Rep #: [id number] : 1970 Provider: Lex Diaz MD Age/Sex: 47/M Location: [facility] Status: Signed Intake Vital Signs07/17/18 Body Mass Index (BMI) 26.9 07/17/18 Height 5 ft 9 in 07/17/18 Weight: 189 lb Intake Visit Reasons: [facility] IP Perforated Diverticulitis Chief Complaint: ABD pain and nausea Medical Supervisor Required: No Is patient in pain?: Yes (umbilicus) Allergies No Known Allergies Allergy (Verified 07/17/18 14:06) Medications Omeprazole [Prilosec] 20 mg PO DAILY 06/29/18 [History Confirmed 07/17/18] [facility] Medical History GERD (gastroesophageal reflux disease) (Acute) [...] hernia as well. Lex Diaz MD Pager: [facility] [address] [place] [address], [address] [place] [address] Office: Coding Level of Care Code Off [...] DISCHARGE SUMMARY Observed: 07/04/2018 Status: F Source: [place] 9:53 AM [facility] REPOSITORY [facility] Medical Records Department [address] [place] [address] Discharge Summary 07/03/18 0906 MR#: [id number] Acct: [id number] Name: AUBREY CHAVEZ Rep #: [id number] : 1970 47 From: Lex Diaz MD PCP: Care Physician, No Primary Status: DIS IN Y Location: [facility] EA213-8 Discharge Date and Diagnosis Date of Admission: [...] Murphy MD at 18:48 EST Tel Direct: [phone], Service support , Abdomen/Pelvis CT 07/03/18 05:55 [...] 1100 Balance 491 / 491 2169 / 2169 216 / 2167 Discharge Activity: Return to Normal Activity Call [...] 10 Days #20 tablet Primary Care Physician: [facility] Doctor,Out of [NON-STAFF] - Please Follow Up With: Lex Diaz MD When: Please call to schedule 2 week follow up appointment. [phone] Medical Necessity - Tobacco Use Smoking Status: Former smoker Tobacco Use: Cigarettes Meaningful Use Info Meaningful Use Diagnoses (Choose all that apply): None applicable 07/04/18 0953 <Electronically signed by Lex Diaz MD> Date Lex Diaz MD Cosigner Signature (if applicable): Date CC: No Primary Care Physician; Lex Diaz MD Signed DISCHARGE INSTRUCTION Observed: 07/03/2018 Status: F Source: [facility] 9:06 AM [facility] REPOSITORY [facility] Medical Records Department [address] [place] [address] Instructions for Home/Discharge Instructions 07/03/18903 MR#: [id number] Acct: [id number] Name: AUBREY CHAVEZ Rep #: [id number] : 1970 47 From: Lex Diaz MD [...] 10 Days #20 tablet Primary Care Physician: [facility] Doctor,Out of [NON-STAFF] - Test Results: Test results from this visit will be discussed in further detail at your follow-up appointment, if applicable. Please Follow Up With: Lex Diaz MD When: Please call to schedule 2 week follow up appointment. [phone] 07/03/18905 <Electronically signed by Lex Diaz MD> Date Lex Diaz MD CC: No Primary Care Physician ABDOMEN/PELVIS WITH Observed: 07/03/2018 Status: F Source: [facility] CONTRAST 12:00 AM [facility] REPOSITORY [facility] Imaging Services [address] [place] [address] Abdomen/Pelvis WITH Contrast MR#: [id number] Acct: [id number] Name: AUBREY CHAVEZ Rep #: [id number] : 1970 M 47 From: Sixto Murphy MD PCP: Care Physician, No Primary Status: ADM IN Study: Abdomen/Pelvis WITH Contrast Date of Exam: 07/03/18 Exam# [id number] Ordering Dr: Lex Diaz MD STUDY: CT [...] The appendix is visualized on axial images 43-5910 appears normal.. There is mild atherosclerotic calcification [...] No Primary Care Physician; Lex Diaz MD Screen Machine Operator: Signed BASIC METABOLIC Collected: 07/02/2018 Status: F Source: [facility] PROFILE (BMP) 5:22 AM [facility] REPOSITORY TYPE CODE TESTS RESULT OUT [...] GAP 8 Performed By: #### L500.2500 #### [facility] [address] [place], [address] CBC W/DIFF, AUTOMATED Collected: 07/02/2018 Status: F Source: [place] 5:22 AM [facility] REPOSITORY TYPE CODE TESTS RESULT OUT [...] Lymph 1.01 Performed By: #### L100.0100 #### [facility] [address] [place], [place], [address] CBC W/DIFF, AUTOMATED Collected: 07/01/2018 Status: F Source: [place] 5:40 AM [facility] REPOSITORY TYPE CODE TESTS RESULT OUT [...] Lymph 1.28 Performed By: #### L100.0100 #### [facility] [address] [place], [place], [address] BASIC METABOLIC Collected: 07/01/2018 Status: F Source: [place] PROFILE (BMP) 5:40 AM [facility] REPOSITORY TYPE CODE TESTS RESULT OUT [...] Normal 9 Performed By: #### L500.2500 #### [facility] [address] [place], [address] CBC W/DIFF, AUTOMATED Collected: 06/30/2018 Status: F Source: [facility] 5:38 AM [facility] REPOSITORY TYPE CODE TESTS RESULT OUT [...] Lymph 1.63 Performed By: #### L100.0100 #### [facility] [address] [facility] [place], [address] BASIC METABOLIC Collected: 06/30/2018 Status: F Source: [place] PROFILE ([facility]) 5:38 AM [facility] REPOSITORY TYPE CODE TESTS RESULT OUT [...] Performed By: #### L500.2500, L501.2300, L501.5200 #### [facility] [address] [facility] [place], [place], [address] PHOSPHORUS Collected: 06/30/2018 Status: F Source: [place] 5:38 AM [facility] REPOSITORY TYPE CODE TESTS RESULT OUT OF RANGE REFERENCE UNITS LAB L501.2300 2.5-4.9 mg/dL Normal PHOS 2.5 Performed By: #### L500.2500, L501.2300, L501.5200 #### [facility] [address] [place] [address]. [place], [place], [address] MAGNESIUM Collected: 06/30/2018 Status: F Source: [place] 5:38 AM [facility] REPOSITORY TYPE CODE TESTS RESULT OUT OF RANGE REFERENCE UNITS LAB L501.5200 1.6-2.6 mg/dL Normal MG 2.3 Performed By: #### L500.2500, L501.2300, L501.5200 #### [facility] [address] [facility] [place], [address] HISTORY AND PHYSICAL Observed: 06/29/2018 Status: F Source: [place] EXAM 7:58 PM [facility] REPOSITORY [facility] Medical Records Department [address] [place] [address] History and Physical 06/29/181950 MR#: [id number] Acct: [id number] Name: AUBREY CHAVEZ Rep #: [id number] : 1970 47 From: Lex Diaz MD [...] Murphy MD at 18:48 EST Tel Direct: [phone], Service support , Assessment/Plan All Active Problems [...] start Lovenox. PPI. Lex Diaz MD Pager: [facility] [address] [place] [address], [address] [place] [address] Office: 06/29/181957 <Electronically signed by Lex Diaz MD> Date Lex Diaz MD Cosigner Signature: Date (if applicable) CC: No Primary Care Physician; Lex Diaz MD Signed EMERGENCY DEPARTMENT Observed: 06/29/2018 Status: F Source: [place] SUMMARY 7:45 PM [facility] REPOSITORY [facility] Medical Records Department [address] [place] [address] Emergency Department Summary 06/29/18 1513 MR#: [id number] Acct: [id number] Name: AUBREY CHAVEZ Rep #: [id number] : 1970 47 From: Avery Joe DO [...] with perforation This note was generated with Footmarks dictation software. It may contain incorrect words, spelling, and punctuation that were not noted in review of the chart prior to signing ED Disposition - Plan for ED Patient: Disposition: Acute Care Hospital [facility] Chief Complaint: Abd Pain Diagnosis: Diverticulitis of colon with perforation Referrals: [facility] Doctor,Out of [NON-STAFF] - What to do if you have Problems For any increased pain, shortness of breath, bleeding, nausea or vomiting, chest pain, or any unexpected problems, contact your Primary Care Provider. Call [facility] ([phone]) or report to the closest Emergency Room. Call 911 if necessary. 06/29/181944 <Electronically signed by Avery Joe DO> Date Avery Joe DO Cosigner Signature (If Indicated): Date CC: No Primary Care Physician URINALYSIS, COMPLETE Collected: 06/29/2018 Status: F Source: [facility] 4:50 PM [facility] REPOSITORY Order Comment: How was Urine [...] URINE SEEN Performed By: #### L400.0001 #### [facility] [address] [place], [address] CBC W/DIFF, AUTOMATED Collected: 06/29/2018 Status: F Source: [facility] 3:30 PM [facility] REPOSITORY TYPE CODE TESTS RESULT OUT [...] Lymph 1.68 Performed By: #### L100.0100 #### [facility] [address] [place], [address] COMPREHENSIVE METABOLIC Collected: 06/29/2018 Status: F Source: [facility] 3:30 PM [facility] REPOSITORY TYPE CODE TESTS RESULT OUT [...] 8 Performed By: #### L500.4050, L501.2450 #### [facility] [address] [place], [place], [address] LIPASE Collected: 06/29/2018 Status: F Source: [facility] 3:30 PM [facility] REPOSITORY TYPE CODE TESTS RESULT OUT OF RANGE REFERENCE UNITS LAB L501.2450 73-393 U/L Normal LIPASE 96 Performed By: #### L500.4050, L501.2450 #### [facility] [address] [place], [place], [address] ABDOMEN/PELVIS WITH Observed: 06/29/2018 Status: F Source: [place] CONTRAST 3:13 PM [facility] REPOSITORY [facility] Imaging Services [address] [place] [address] Abdomen/Pelvis WITH Contrast MR#: [id number] Acct: [id number] Name: AUBREY CHAVEZ Rep #: [id number] : 1970 M 47 From: Padmini Murphy MD PCP: Care Physician, No Primary Status: REG ER Study: Abdomen/Pelvis WITH Contrast Date of Exam: 06/29/18 Exam# [id number] Ordering Dr: Avery Joe DO STUDY: CT [...] Murphy MD at 18:48 EST Tel Direct: [phone], Service support , CC: No Primary Care Physician; Avery Joe DO Screen Machine Operator: Signed ALLERGIES ALLERGIES DATE TYPE / CODE NAME / CODE REACTION SEVERITY SOURCE 08/08/2018 Drug No Known Unknown [facility] Allergy/4160 Allergies/F00 Hospital 93623(SNOMED 7092146(RXNOR Repository CT) M) ENCOUNTERS ENCOUNTERS ADMIT/DISCHARGE ACCOUNT ADMITTING ENCOUNTER LOCATION SOURCE NUMBER CLASS 08/08/2018/ [id number] Ambulatory BMSBuilding:B Jose 9 3 [place] Repository 08/05/2018/ [id number] Ambulatory Jose Jose 9 9 [facility] ing:ENRoom: Repository AC10 07/17/2018/ [id number] Ambulatory BMSBuilding:B [address] 2 [place] Repository 06/29/2018 [id number] [facility] 06/29/2018 [id number] [facility], Ambulatory BMSBuilding:B [address] Lex [place].[facility] Repository 06/29/2018 [id number] [facility], Ambulatory BMSBuilding:B [address] Lex [place].[facility] Repository 06/29/2018 [id number] [facility] BMS[facility]:B Jose 9 [place]x [place].[facility] Repository 06/29/2018 [id number] [place], Ambulatory BMSBuilding:B [address] Lex [place].[facility] [place] 06/29/2018/ [id number] [facility], Inpatient [address] Jose 8 6 Lex Encounter [facility] ing:ZQ9Gslx: Repository RC388Shs: 1 PAYERS PAYERS ENCOUNTER GUARANTOR PAYER SUBSCRIBER SOURCE 08/08/2018 AUBREY C Primary AUBREY C [address] [id number] Insurance:ANTHEMPolic BOHLENDOB: [facility] FRANKIE DRLOT y Number: [id number] [id number] Repository [address]Btc: (330) Date:5039-83-19TR [phone] () [address] [place] [address] [place] [address]WV: 08/08/2018 Secondary NOT GIVENUNK Jose Insurance:SELF PAY [facility] Number: Effective Repository Date:2018-08-08 08/05/2018 AUBREY C Primary AUBREY C [address] [id number] Insurance:ANTHEMPolic BOHLENDOB: [facility] FRANKIE RYAN y Number: [id number] [id number] Repository [address]Ewe: (330) Date:5682-46-74SW [phone] () [id number] [address]ZF: 08/05/2018 Secondary NOT GIVENUNK Jose Insurance:SELF PAY [facility] Number: Effective Repository Date:2018-07-17 07/17/2018 AUBREY C Primary AUBREY C [address] [id number] Insurance:ANTHEMPolic BOHLENDOB: [facility] FRANKIE RYAN y Number: [id number] [id number] Repository [address]Doy: (330) Date:1150-48-57IA [phone] () [id number], [place] [address]SZ: 07/17/2018 Secondary NOT GIVENUNK Jose Insurance:SELF PAY [facility] Number: Effective Repository Date:2018-07-14 06/29/2018 AUBREY [id number] Primary AUBREY BOHLENDOB: Jose FRANKIE DRCLIFFORD Insurance:ANTHEMPolic [id number] y Number: [facility] [address]Yst: (330) [id number] Repository [phone] () Date:0096-28-89WV [address], [place] [address]NZ: 06/29/2018 Secondary NOT GIVENUNK Jose Insurance:SELF PAY [facility] Number: Effective Repository Date:2018-06-29 06/29/2018 AUBREY C Primary AUBREY C [address] [id number] Insurance:ANTHEMPolic BOHLENDOB: [facility] FRANKIE DRCLIFFORD y Number: [id number] [id number] Repository [address]Kgr: (330) Date:6654-03-28NG [phone] () [id number], [place] [address]SH: 06/29/2018 Secondary NOT GIVENUNK Jose Insurance:SELF PAY [facility] Number: Effective Repository Date:2018-06-29 06/29/2018 AUBREY C Primary AUBREY C [address] [id number] Insurance:ANTHEMPolic BOHLENDOB: [facility] FRANKIE DAVIS y Number: [id number] [id number] Repository [address]Bjf: (330) Date:4078-38-32EM [phone] () 005[address]CLZPQLW, [place] [address]NK: 06/29/[address] Insurance:SELF PAY [facility] Number: Effective Repository Date:2018-06-29 06/29/2018 AUBREY C Primary AUBREY C Jose [id number] Insurance:ANTHEMPolic BOHLENDOB: Community FRANKIE DRCLIFFORD y Number: [id number] [id number] Repository [address]Vfz: (330) Date:5395-03-48ME [phone] () [id number] [place] [address]HI: 06/29/2018 Secondary NOT GIVENUNK Jose Insurance:SELF PAY [facility] Number: Effective Repository Date:2018-06-29 06/29/2018 AUBREY Knapp Primary AUBREY [address] Jose [id number] Insurance:ANTHEMPolic BOHLENDOB: [facility] FRANKIE DAVIS y Number: [id number] [id number] Repository [address]Zap: 330) Date:4347-81-78EN [phone] () [id number] [place] [address]GI: 06/29/2018 Secondary NOT GIVENUNK Jose Insurance:SELF PAY [facility] Number: Effective Repository Date:2018-06-29 06/29/2018 AUBREY C Primary AUBREY Knapp Jose [id number] Insurance:ANTHEMPolic BOHLENDOB: [facility] RYAN y Number: [id number] [id number] Repository [address]Eqf: 330) Date:9594-04-60BY [phone] () [id number], [place] [address]DK: 06/29/2018 Secondary NOT GIVENUNK Jose Insurance:SELF PAY [facility] Number: Effective Repository Date:2018-06-29
== END 2018-08-05 08:55 | disposition home or self-care (01) ==
LOC: EN 06:49 → AC 06:49
PROVIDERS: Referring Provider Surgery; Visit Provider Surgery
PROC: 0DJD8ZZ Inspection of Lower Intestinal Tract, Via Natural or Artificial Opening Endoscopic (ICD-10-PCS; CPT 45378; principal; 2018-08-05 07:55)
DX: K57.30 Diverticulosis of large intestine without perforation or abscess without bleeding (principal); K57.32 Diverticulitis of large intestine without perforation or abscess without bleeding; K21.9 Gastro-esophageal reflux disease without esophagitis; I10 Essential (primary) hypertension; Z87.891 Personal history of nicotine dependence; K42.9 Umbilical hernia without obstruction or gangrene
CPT/HCPCS: 45378; J7120

== ENCOUNTER 2018-09-14 08:30 | Inpatient (IN) | payer BC, SELFPAY ==
[2018-09-14] VITALS (8 sets, daily range): BP systolic 117–161; BP diastolic 65–101; PULSE 77–112; RESP 15–18; TEMP 36.7–37.8; O2SAT 93–99; BMI 26.5
--- NOTE | 2018-09-14 08:49 | ED.VISSUMM ---
- ER Visit Summary Date of Service: 09/14/18 Chief Complaint: [] Left lower quadrant pain pain began last night History of Present Illness: The patient is a 48 M [] diverticulitis a few months ago had prior colonoscopy that showed diverticulitis indicates diverticulitis was complicated by some unspecified sense of a bubble he was seen by Dr. Ashraf, and he might require surgery but his symptoms resolved has been doing well until last night he began having a vague nonspecific discomfort to the left lower quadrant similar to what he had before with diverticulitis no nausea vomiting or fever he is having normal bowel bladder habits is able to eat and drink he has no other complaints or history Indicates he presents to emerge from because he feels he may be in the early stages of diverticulitis he does not wish to have an ED workup he simply went to be prescribed Flagyl and Bactrim and he wants to see Dr. bills tomorrow in the office Physical Examination: [] Vital signs are within normal limits General, no distress resting comfortably HEENT is generally unremarkable The neck is supple no adenopathy Cardiovascular, regular rate and rhythm Lungs, clear bilateral Abdomen, soft nontender there is a vague discomfort to the left lower abdomen there is no rebound guarding organomegaly no fullness he assures me this is a very mild sense of discomfort Extremities, no clubbing cyanosis or edema Neurologic, awake alert answering questions appropriately moving all 4 extremities Test Results: [] Emergency Department Course and Treatment: [] I discussed the patient the concept of an abscess significant diverticulitis that is clinically not apparent on explained to him that I would recommend IV fluids labs CT etc. but he declined all of that might indicate he had an important birthday family that he must attend today, understood the risk of diverticulitis, abscess rupture sepsis and but simply wanted the prescription for the antibiotics as above and he assured me he would follow-up with his surgeon tomorrow and return to the emergency department if symptoms change or intensified he is awake and alert clearly has capacity to make this decision he will be given the antibiotics as above These note the patient just before discharge change his mind and agreed to the evaluation his CT scan showed signs of diverticulitis with pneumoperitoneum possible rupture abscess his labs reveal white count 12.5 IV antibiotic started we discussed case Dr. Strickland who be seeing shortly and determine his disposition and admission status Treatment Plan: [] Disposition: [] Admit Impression: [] Left lower quadrant pain, diverticulitis with perforation and abscess This note was generated with [employer] it [employer] dictation software. It may contain incorrect words, spelling, and punctuation that were not noted in review of the chart prior to signing ED Disposition - Plan for ED Patient: Instructions: ED Abdominal Pain Unkn Cause Male Referrals: Care Physician,No Primary [Primary Care Provider] - Additional Instructions: Follow-up with your surgeon tomorrow
--- NOTE | 2018-09-14 08:52 | ED.DEP ---
ED Disposition - Plan for ED Patient: Instructions: ED Abdominal Pain Unkn Cause Male Prescriptions: Ciprofloxacin [Cipro] 500 mg PO BID #20 tab Metronidazole [Flagyl] 500 mg PO Q6H #40 tab Referrals: Care Physician,No Primary [Primary Care Provider] - Additional Instructions: Follow-up with your surgeon tomorrow
--- NOTE | 2018-09-14 09:14 | CT_ITS ---
STUDY: CT ABDOMEN AND PELVIS WITHOUT CONTRAST REASON FOR EXAM: Male, 48 years old. Abdominal pain. RADIATION DOSAGE (If Supplied By Facility): CTDIvol = ( 11.52 ) mGy, DLP = ( 612.88 ) mGycm TECHNIQUE: Transaxial images were obtained from the dome of the diaphragm to the symphysis pubis without oral contrast, and without intravenous contrast. Sagittal and coronal images were reconstructed. Individualized dose optimization techniques were used for this CT. COMPARISON: July 03, 2018 FINDINGS: There is lower lung atelectasis. The visualized portions of the heart are within normal limits. There is pneumoperitoneum. Normal liver. Normal gallbladder and extrahepatic biliary system. Normal spleen. Normal pancreas. Normal bilateral adrenal glands. Normal right kidney. There is 0.3 cm stone at the lower pole of the left kidney. There is a small hiatal hernia. There is mild distention of loops of small intestine. There is diverticulosis, with thickening of the sigmoid colon wall, and left lower quadrant pericolonic inflammation changes consistent with acute diverticulitis. There is improvement of previously noted pericolonic fluid collection. The appendix is visualized and appears normal. There is diffuse atherosclerotic calcification of the abdominal aorta, without a demonstrated aneurysm. Normal inferior vena cava. Normal retroperitoneum. Normal urinary bladder. There are prostatic calcifications. There is a small umbilical hernia containing fat. There are diffuse degenerative changes of the visualized lumbar spine. There is grade 1 spondylolisthesis at L5-S1 with bilateral spondylolysis of L5. CT/Abdomen/Pelvis without Cont IMPRESSION: Sigmoid diverticulitis with pneumoperitoneum consistent with perforation. Surgical consultation recommended. Ileus with distention of small bowel loops. Left renal stone. Results discussed with Josefina Martinez, nurse caring for the patient working with Dr. Salter . N.B. : The above information has been verbally conveyed by Brent Collins MD to Vianney Salter MD, on 09/14/2018 09:56:11 (ET). Electronically Signed: Brent Collins MD at 9:58 EST , Service support ,
[2018-09-14] MEDS: 0.9% Normal Saline 1,000 ML 1000 ML IV (09:24)
[2018-09-14] MEDS: morphine 8 MG/ML Syringe IV (09:27)
[2018-09-14] MEDS: Ondansetron 4 MG/2 ML Vial IV (09:28)
[2018-09-14 09:33] LABS: Absolute Lymphocyte Count 2.13 X10^3/ul (0.83-4.51); Absolute Neutrophil Count 9.1 X10^3/uL (2.0-7.7); Basophil# 0.03 X10^3/uL; Basophil% 0.2 % (0-1); Eosinophil# 0.05 X10^3/uL; Eosinophils% 0.4 % (0-5); Hematocrit 46.6 % (40-54); Lymphocyte # 2.13 X10^3/ul (4.0); Mean Corp Hgb Conc 36.5 g/gl (32-36); Mean Corpuscular Hgb 31.3 pg (27.0-32.0); Mean Corpuscular Volume 85.8 fL (80-94); Mean Platelet Vol. 10.3 fl (6.2-12.0); Monocyte% 9.6 % (0-10); Neutrophil # 9.06 X10^3/uL (2.7-7.7); Neutrophil % 72.3 % (47-70); Platelet Count 197 K/mm3 (150-450); RBC Distribution Width SD 40.2 fl (35.1-43.9); Red Blood Count 5.43 M/mm3 (4.6-6.2); White Blood Count 12.5 K/mm3 (4.4-11.0)
[2018-09-14 09:35] LABS: POSITIVE COUNT NO; POSITIVE DIFFERENTIAL NO; POSITIVE MORPHOLOGY NO
[2018-09-14 09:49] LABS: AST(SGOT) 12 U/L (15-37); Alanine Aminotransfer ALT/SGPT 30 U/L (16-61); Albumin, Serum 4.4 g/dL (3.2-5.0); Alkaline Phosphatase 83 U/L (45-117); Anion Gap 5 (5-15); BUN 13 mg/dL (7-18); Bilirubin, Direct 0.39 mg/dL (0.00-0.30); Calcium,Total 9.2 mg/dL (8.5-10.1); Chloride 102 mmol/L (98-107); Creatinine, Serum 1.18 mg/dL (0.70-1.30); EST Glomerular Filtration Rate 69 mL/min (>60); Est Glom Filt Rate - Afr Amer 84 mL/min (>60); Estimated Creatinine Clearance 77.33 ml/min; Globulin 3.8 g/dL (2.2-4.2); Glucose 133 mg/dL (74-106); Lipase 65 U/L (73-393); Protein, Total 8.2 g/dL (6.4-8.2); Sodium Level 134 mmol/L (136-145)
[2018-09-14] MEDS: Ciprofloxacin 400 MG/200 ML BAG 200 MG IV (10:12)
--- NOTE | 2018-09-14 10:46 | PCM.HP.STD ---
Problem List (1) Diverticulitis of colon with perforation Status: Acute Qualifiers: Diverticulitis bleeding: without bleeding History of Present Illness Date of Admission: 09/14/18 The patient is a 48 year old M who presented to [facility] emergency department today with increasing left lower quadrant abdominal discomfort. He reports that he has had diverticulitis twice in the past. He says that yesterday he began having left lower quadrant pain. He is not have any blood in his stool. He says it is painful to pass gas and he has not passed any gas in the last several hours. He is not having any nausea or vomiting. He says he had a normal colonoscopy about 5-7 years ago. The pain is in his left lower quadrant and does not radiate. He is not having any fevers or chills. He states that this time his pain is significantly worse than his previous admission in July. In addition his white count is elevated today. CAT scan of the abdomen and pelvis was compared with his previous CAT scan and there now appears to be a fluid collection with some air in it that I believe could quite possibly be drained percutaneously. I am going to admit the patient make him n.p.o. except for ice chips and coffee continue IV antibiotics and obtain a percutaneous drainage in the morning. Past Medical History Past Medical History (Chronic Problems): Chronic Problems (Last Reviewed 08/08/18 @ 15:28 by Joleen Frazier) HTN (hypertension) (Chronic) Medical History: Medical History (Last Reviewed 09/14/18 @ 10:48 by Jerry Strickland MD) GERD (gastroesophageal reflux disease) (Acute) K21.9 HTN (hypertension) (Chronic) I10 Diverticulitis of colon with perforation (Acute) K57.20 Allergies No Known Allergies Allergy (Verified 09/14/18 09:21) Home Medications: Ambulatory Orders Medication Instructions Recorded Omeprazole [Prilosec] 20 mg PO DAILY 06/29/18 [place]-3 Fatty Acids/Fish Oil [Fish 1 ea PO DAILY 07/31/18 Oil 1,000 mg Capsule] Lisinopril 5 mg PO DAILY 08/05/18 Surgical History: Surgical History (Last Reviewed 09/14/18 @ 10:48 by Jerry Strickland MD) S/P colonoscopy Onset Date: ~08/05/18 Z98.890 S/P nasal surgery Z98.890 Surgical History: no surgical history Smoking Status: Former smoker - *Family History Maternal Family History: Family History (Last Reviewed 09/14/18 @ 10:48 by Jerry Strickland MD) Mother Heart disease Father Heart disease Cancer History Items: Heart Disease Paternal Family History: Family History (Last Reviewed 09/14/18 @ 10:48 by Jerry Strickland MD) Mother Heart disease Father Heart disease Cancer History Items: Cancer, Heart Disease Review of Systems Constitutional: Denies: Chills, Fever, Weight Change HEENT: Denies: Dysphasia, Ear Pain, Eye Pain, Head Aches, Hearing Changes, Sore Throat Cardiovascular: Denies: Chest Pain, Chest Pressure, Chest Tightness, Palpitations Respiratory: Denies: Cough, Hemoptysis, Shortness of breath at rest, Shortness of breath upon exertion, Wheezing Gastrointestinal: Reports: Abdominal Pain Genitourinary: Denies: Dysuria, Frequency, Hematuria, Urgency Musculoskeletal: Denies: Joint Pain Skin: Denies: Lesions, Rash, Wounds Neurological: Denies: Change in Speech, Confusion, Numbness, Tingling, Seizures Endocrine: Denies: Heat/ Cold Intolerance, Polydipsia, Polyuria Hematologic/ Lymphatic: Denies: Adenopathy, Easy Bruising VTE Information - Inpt Only VTE Present on Admission: No VTE Mechan Device Prophylaxis: SCD's VTE Pharm Prophylaxis ordered?: No Reason prophylaxis not ordered:: Treatment Not Indicated - Physical Exam General: Alert, Oriented x3 HEENT: Atraumatic, PERRLA, EOMI, Normocephalic Oral: Moist Mucosa Neck: Supple, No JVD Lungs: Clear to auscultation Cardiovascular: Regular rate, Regular Rhythm, No murmurs Abdomen: Guarding, Tender - Patient's tenderness is mostly located in left lower quadrant. It is severe in nature to palpation. He does not have a rigid abdomen and I do not think he is a surgical emergency at this time Extremities: No clubbing, No cyanosis, No edema Skin: No rashes, No breakdown Musculoskeletal: No Tenderness to Palpation of Joints or Extremities Lymphatic: No Cervical, Supraclavicular, or Inguinal Adenopathy Neurological: Cranial nerves II-XII grossly intact Psych/Mental Status: Normal Affect, Appropriate Vital Signs Temp Pulse Resp BP Pulse Ox 98.1 F 77 16 117/65 95 09/14/18 08:32 09/14/18 09:59 09/14/18 09:59 09/14/18 09:59 09/14/18 09:59 Oxygen Delivery Method Room Air Weight: 185 lb Body Mass Index (BMI) 26.5 Laboratory Tests Past 24 Hrs 09/14/18 09/14/18 09:20 09:20 WBC 12.5 H RBC 5.43 Hgb 17.0 H Hct 46.6 MCV 85.8 MCH 31.3 MCHC 36.5 H RDW 13.0 RDW Differential 40.2 Plt Count 197 MPV 10.3 Immature Gran % (Auto) 0.500 Neut % (Auto) 72.3 H Lymph % (Auto) 17.0 L Dunn % (Auto) 9.6 Eos % (Auto) 0.4 Baso % (Auto) 0.2 Absolute Neuts (auto) 9.1 H Absolute Lymphs (auto) 2.13 Total Counted Not Reportable Sodium 134 L Potassium 4.0 Chloride 102 Carbon Dioxide 27.0 Anion Gap 5 BUN 13 Creatinine 1.18 Estim Creat Clear Calc 77.33 Est GFR (MDRD) Af Amer 84 Est GFR (MDRD) Non-Af 69 BUN/Creatinine Ratio 11.0 Glucose 133 H Calcium 9.2 Total Bilirubin 2.20 H Direct Bilirubin 0.39 H AST 12 L ALT 30 Alkaline Phosphatase 83 Total Protein 8.2 Albumin 4.4 Globulin 3.8 Lipase 65 L Assessment/Plan All Active Problems (Last Reviewed 08/08/18 @ 15:28 by Joleen Frazier) Umbilical hernia (Acute) GERD (gastroesophageal reflux disease) (Acute) Diverticulitis of colon with perforation (Acute) We are going to admit the patient start him on IV antibiotics. I am going to check a coagulation study on him and make him n.p.o. so that we can do a percutaneous drainage sometime tomorrow. I have informed the patient that if his condition should worsen he could quite possibly need to have an emergent sigmoid resection with creation of a colostomy. He understands though that it by putting in the drainage tube percutaneously we might be able to cool things off to offer him only a 1 stage procedure.
[2018-09-14 10:57] LABS: International Normalized Ratio 1.1; Prothrombin Time (Protime)PT. 13.6 SECONDS (11.7-14.9)
[2018-09-14] MEDS: Ceftriaxone 1 GM/50 ML BAG IV (11:19)
[2018-09-14] MEDS: HYDROmorphone 1 MG/ML Syringe IV ×3 (13:31→21:35)
[2018-09-14] MEDS: Lactated Ringers 1,000 ML 125 ML IV ×2 (13:33→21:46)
[2018-09-14 15:13] LABS: Bacteria 0 SEEN /hpf (None Seen); Red Blood Cells-Urine 0 SEEN /hpf (0-5); Squamous Epithelial Cells - UA 0 SEEN /hpf (0-5)
[2018-09-14 15:15] LABS: Color, Urine Yellow (Yellow); Glucose, Dipstick Normal (Normal); Ketone-Dipstick 5 mg/dl (Negative); Leukocyte Esterase-Dipstick 25 /ul (Negative); Nitrite-Dipstick Negative (Negative); Occult Blood-Urine 10 /ul (Negative); Protein-Dipstick 30 mg/dl (Negative); Specific Gravity, Urine 1.025 (1.002-1.030); Urine Bilirubin Dipstick Negative (Negative); Urine Clarity Clear (Clear); Urine Urobilinogen 1 mg/dl (Normal)
[2018-09-14 15:22] LABS: Mucous, Urine 2+ /hpf (<or=2+); White Blood Cells 0-5 SEEN /hpf (0-5)
[2018-09-14] MEDS: 0.9% NaCl Peripheral Flush Adult/Peds IV ×2 (18:11→21:35)
[2018-09-15] VITALS (13 sets, daily range): BP systolic 106–148; BP diastolic 62–89; PULSE 84–105; RESP 12–18; TEMP 36.7–37.2; O2SAT 91–97; BMI 26.5
[2018-09-15] MEDS: HYDROmorphone 1 MG/ML Syringe IV ×4 (03:10→23:43)
[2018-09-15] MEDS: Lactated Ringers 1,000 ML 125 ML IV ×2 (05:58→18:11)
[2018-09-15 06:37] LABS: Absolute Lymphocyte Count 0.67 X10^3/ul (0.83-4.51); Absolute Neutrophil Count 13.4 X10^3/uL (2.0-7.7); Basophil# 0.02 X10^3/uL; Basophil% 0.1 % (0-1); Hematocrit 45.6 % (40-54); Hemoglobin 15.5 g/dl (13.0-16.5); Lymphocyte # 0.67 X10^3/ul (4.0); Lymphocyte % 4.4 % (19-41); Mean Corpuscular Hgb 30.1 pg (27.0-32.0); Mean Corpuscular Volume 88.5 fL (80-94); Mean Platelet Vol. 10.6 fl (6.2-12.0); Monocyte# 1.07 X10^3/uL; Neutrophil # 13.43 X10^3/uL (2.7-7.7); Neutrophil % 88.2 % (47-70); Platelet Count 169 K/mm3 (150-450); RBC Distribution Width CV 13.1 % (11.6-14.6); RBC Distribution Width SD 42.3 fl (35.1-43.9); Red Blood Count 5.15 M/mm3 (4.6-6.2); White Blood Count 15.2 K/mm3 (4.4-11.0)
[2018-09-15 06:38] LABS: POSITIVE COUNT NO; POSITIVE DIFFERENTIAL NO; POSITIVE MORPHOLOGY NO
[2018-09-15 06:48] LABS: Anion Gap 7 (5-15); BUN 17 mg/dL (7-18); BUN/Creat Ratio 14.2 RATIO (10-20); Calcium,Total 8.4 mg/dL (8.5-10.1); Chloride 99 mmol/L (98-107); EST Glomerular Filtration Rate 68 mL/min (>60); Est Glom Filt Rate - Afr Amer 82 mL/min (>60); Estimated Creatinine Clearance 76.04 ml/min; Glucose 135 mg/dL (74-106); Potassium 4.2 mmol/L (3.5-5.1); Sodium Level 132 mmol/L (136-145)
--- NOTE | 2018-09-15 10:19 | EKG12_ITS ---
Test Reason : PREOP Blood Pressure : / mmHG Vent. Rate : 083 BPM Atrial Rate : 083 BPM P-R Int : 158 ms QRS Dur : 086 ms QT Int : 356 ms P-R-T Axes : 043 021 026 degrees QTc Int : 418 ms Normal sinus rhythm Normal ECG No previous ECGs available Confirmed by CRISTIANO WEBER ([id number]), mechanical expert DARCI DYSON ([id number]) on 09/19/2018 1:59:15 PM Referred By: PEA Confirmed By:CRISTIANO WEBER
--- NOTE | 2018-09-15 10:24 | PCM.PN.SRG ---
Subjective: Patient reports abdominal pain but no nausea or vomiting. - Physical Exam General: Alert, Oriented x3, Cooperative Neck: No JVD Lungs: Normal air movement, No rhonchi Cardiovascular: Regular rate, Regular Rhythm Abdomen: Soft, Rigid, Tender Vital Signs Temp Pulse Resp BP Pulse Ox 98.1 F 94 18 145/89 H 94 09/15/18 09:38 09/15/18 09:38 09/15/18 09:38 09/15/18 09:38 09/15/18 09:38 Oxygen Flow Rate (L/min) 2 Oxygen Delivery Method Nasal Cannula Weight: 185 lb Body Mass Index (BMI) 26.5 Intake and Output for Last 24 Hours 09/13/18 09/14/18 09/15/18 23:59 23:59 23:59 Intake Total 880 / 880 1576 / 1576 Balance 880 / 880 1576 / 1576 Laboratory Tests Past 24 Hrs 09/14/18 09/14/18 09/15/18 09:20 15:00 06:06 WBC 15.2 H RBC 5.15 Hgb 15.5 Hct 45.6 MCV 88.5 MCH 30.1 MCHC 34.0 RDW 13.1 RDW Differential 42.3 Plt Count 169 MPV 10.6 Immature Gran % (Auto) 0.300 Neut % (Auto) 88.2 H Lymph % (Auto) 4.4 L Davie % (Auto) 7.0 Eos % (Auto) 0.0 Baso % (Auto) 0.1 Absolute Neuts (auto) 13.4 H Absolute Lymphs (auto) 0.67 L Total Counted Not Reportable PT 13.6 INR 1.1 Sodium Potassium Chloride Carbon Dioxide Anion Gap BUN Creatinine Estim Creat Clear Calc Est GFR (MDRD) Af Amer Est GFR (MDRD) Non-Af BUN/Creatinine Ratio Glucose Calcium Urine Color Yellow Urine Clarity Clear Urine pH 5.0 Ur Specific Slemp 1.025 Urine Protein 30 H Urine Glucose (UA) Normal Urine Ketones 5 H Urine Occult Blood 10 H Urine Nitrite Negative Urine Bilirubin Negative Urine Urobilinogen 1 H Ur Leukocyte Esterase 25 H Urine RBC 0 SEEN Urine WBC 0-5 SEEN Ur Squamous Epith Cells 0 SEEN Urine Bacteria 0 SEEN Urine Mucus 2+ 09/15/18 06:06 WBC RBC Hgb Hct MCV MCH MCHC RDW RDW Differential Plt Count MPV Immature Gran % (Auto) Neut % (Auto) Lymph % (Auto) Davie % (Auto) Eos % (Auto) Baso % (Auto) Absolute Neuts (auto) Absolute Lymphs (auto) Total Counted PT INR Sodium 132 L Potassium 4.2 Chloride 99 Carbon Dioxide 26.0 Anion Gap 7 BUN 17 Creatinine 1.20 Estim Creat Clear Calc 76.04 Est GFR (MDRD) Af Amer 82 Est GFR (MDRD) Non-Af 68 BUN/Creatinine Ratio 14.2 Glucose 135 H Calcium 8.4 L Urine Color Urine Clarity Urine pH Ur Specific Slemp Urine Protein Urine Glucose (UA) Urine Ketones Urine Occult Blood Urine Nitrite Urine Bilirubin Urine Urobilinogen Ur Leukocyte Esterase Urine RBC Urine WBC Ur Squamous Epith Cells Urine Bacteria Urine Mucus Medical Necessity - Tobacco Use Smoking Status: Former smoker Assessment/Plan All Active Problems (Last Reviewed 09/14/18 @ 10:48 by Jerry Strickland MD) Umbilical hernia (Acute) GERD (gastroesophageal reflux disease) (Acute) Diverticulitis of colon with perforation (Acute) 48-year-old male with perforated diverticulitis 1. Patient was omitted yesterday. Patient notes that he is comfortable when on Dilaudid but on physical exam the patient had a rigid abdomen with involuntary guarding. Patient CT shows diffuse free air. I believe he has freely perforated diverticulitis. With his white count going up despite antibiotics as well as his physical exam I believe the patient needs to be taken for sigmoid colectomy. 2. I discussed sigmoid colectomy with the patient in detail. I discussed the risks including but not limited to bleeding, infection, injury to surrounding organs such as the ureter, bladder, bowels. I explained these risks and the procedure to both of his sisters as well as he was under narcotics. I also explained the possibility of having to convert to an open procedure as well as the possibility of performing an end colostomy or loop ileostomy to protect the anastomosis. The patient understands all these risks and is willing to proceed with surgery. I will take him emergently for laparoscopic sigmoid colectomy. Lex Diaz MD Pager: [facility] [address] [place] [address], [address] [place] [address] Office:
--- NOTE | 2018-09-15 10:45 | COL_PTH ---
PATIENT: ROGERIO CHAVEZ LOC: MS3 U#:[id number] AGE/SX: 48/M ROOM: MN315 RE09/14/[address]: Dr. Jerry Strickland MD : 1970 BED: 1 DIS: 09/19/2018 SPEC #: [id number] RECD: 09/15/18 15:18 STATUS: LIZZY VALDOVINOS #: [id number] CAROLIN: 09/15/18 10:[address]: Lex Diaz DEPT: SURGICAL PATHOLOGY RECD BY: Taylor Kelly ENTERED: 09/16/18 08:30 SP TYPE: COLON OTHR DR: Dr. Jerry Strickland MD No Primary Care Phys Tissues: Colon, NOS Procedures: Surgery Specimen Level V HEADER OPERATION: Exploratory laparoscopy, open sigmoid colectomy, splenic PRE-OP DIAGNOSIS: Diverticulitis of colon with perforation TISSUE SUBMITTED: Sigmoid colon, suture zabala distal colon MICROSCOPIC DIAGNOSIS Sigmoid colon, segmental colectomy: Diverticular disease of colon with focal microabscess formation suggestive of rupture of diverticulum. Acute serositis. Margins of excision with no pathologic change. AM:maria isabel 09/18/18 MICROSCOPIC DESCRIPTION Slides are reviewed. GROSS DESCRIPTION Received in fixative is one container labeled with the patient's name and designated sigmoid colon. The specimen consists of a 22 cm segment of bowel with attached fibrofatty tissue that displays fat wrapping. The lumen contains fecal material. No gross perforations are identified. Serial sections reveal a number of diverticula. None of these appear to have grossly perforated through the bowel wall. Bottler sections are submitted in six cassettes as follows: 1 - proximal mucosal margin, 2 - distal mucosal margin, 3-5 - diverticula, 6 - pericolic fatty tissue. / AM:maria isabel 09/17/18 TC:2 CPT: 84447
[2018-09-15] MEDS: Bupiv/Epi 0.5% Mpf 30 ML Vial (14:00)
--- NOTE | 2018-09-15 15:25 | OP.PCM_ITS ---
Problem List (1) Diverticulitis of colon with perforation Status: Acute Qualifiers: Diverticulitis bleeding: without bleeding Report of Operation Date of Procedure: 09/15/18 Pre-Operative Diagnosis: Perforated diverticulitis of the sigmoid colon Post-Operative Diagnosis: Same Surgery/Procedure Performed:: 1. Exploratory laparoscopy. 2. Exploratory laparotomy with sigmoid colectomy and anastomosis. 3. Diverting ileostomy. 4. Laparoscopic splenic flexure release Specimen's removed: Sigmoid colon with suture marking the distal Description of Procedure: The patient was brought back to the operating room and general anesthesia was induced. A Norton catheter was placed. The abdomen was prepped and draped in the usual sterile fashion. A midline incision was made superior to the umbilicus and deepened to the fascia and the fascia was elevated and incised. A 12 mm port was placed into the abdomen and it was insufflated. A right lower quadrant 5 mm port as well as a right lateral 5 mm port were placed under direct visualization. The patient had very dilated small bowel with interloop abscesses. These were broken up bluntly and abscess material was aspirated. Once the dissection was carried to the left colon the area of perforation was identified. There was a thickened area in the descending colon just proximal to the sigmoid colon. Enseal was used to free up the lateral aspect of the colon superiorly and inferiorly. This was brought up to the splenic flexure and the splenic flexure was mobilized. Next due to the amount of dilation of the small bowel the procedure was converted to an open laparotomy. The midline port was removed and electrocautery was used to extend the incision inferiorly and silva periorly. Next a wound protector was placed into the incision. The transverse colon as well as the sigmoid colon were then further mobilized. Next inferior to the thickened area an area of colon was selected and a window was made in the mesentery and a HIMA stapler was used to take down the sigmoid colon. Next superiorly where the colon was soft and noninflamed a window was made and a HIMA stapler was used to come across this area of the colon. Next the colon was taken from its mesentery just under the colon using Enseal. Next the transverse colon was unable to be mobilized down to the pelvis so a handsewn anastomosis was chosen. Each area of the staple line was removed from the colon and at the posterior segment of both areas a chromic suture was used to approximate the superior and inferior colon. A running chromic suture was then used to each lateral sidewall of the colon. Interrupted silk sutures were placed to buttress this repair. Next the chromic was brought around to the anterior portion of the colon and this was approximated using running suture. Interrupted silk sutures were placed to buttress this repair. Next a sigmoidoscope was placed into the rectum and air was insufflated. Water was instilled into the abdomen. There was no bubbles or sign of leak. There was good passage of air to the descending colon. The abdomen was then irrigated and suctioned and the NG was confirmed to be in the stomach. Next an area in the right lower quadrant was incised at skin level and the incision was deepened to the external fascia. The anterior fascia was opened in a cruciate incision and the muscle was split and the posterior rectus sheath was opened. Next a small segment of terminal ileum was placed through this as a loop ileostomy. A mei was placed underneath this and fastened to the skin with 3-0 silk suture. Next the omentum was used to drape over the anastomosis and the anterior fascia was closed with a running 0 looped PDS suture from superior and inferior meeting in the middle. The wound was then irrigated 5 Telfa jay jay were placed into the incision and the incision was stapled closed around these jay jay. Next the 5 mm port sites were anesthetized and closed with a interrupted 4-0 Monocryl suture as well as Steri-Strips. Next the ileostomy was matured. This was done with cautery and then the stoma was matured with interrupted 3-0 Vicryl sutures. Stoma appliance was then applied. The patient was taken to PACU in stable condition with Norton in place. Patient tolerated the procedure well. - Admit VTE Documentation VTE Mechan Device Prophylaxis: SCD's
[2018-09-15] MEDS: Ketorolac 15 MG/ML Vial IV (21:46)
[2018-09-15] MEDS: Ondansetron 4 MG/2 ML Vial IV (23:43)
[2018-09-16] VITALS (8 sets, daily range): BP systolic 111–126; BP diastolic 70–80; PULSE 62–89; RESP 14–18; TEMP 36.4–37.1; O2SAT 84–96
[2018-09-16] MEDS: Lactated Ringers 1,000 ML 125 ML IV ×3 (01:13→21:16)
[2018-09-16] MEDS: 0.9% NaCl Peripheral Flush Adult/Peds IV ×4 (02:07→14:49)
[2018-09-16] MEDS: HYDROmorphone 1 MG/ML Syringe IV ×5 (02:07→19:25)
[2018-09-16] MEDS: Ketorolac 15 MG/ML Vial IV ×3 (05:57→21:17)
[2018-09-16 06:25] LABS: Absolute Neutrophil Count 11.6 X10^3/uL (2.0-7.7); Hematocrit 40.7 % (40-54); Hemoglobin 13.7 g/dl (13.0-16.5); Lymphocyte % 3.8 % (19-41); Mean Corp Hgb Conc 33.7 g/gl (32-36); Mean Corpuscular Hgb 29.8 pg (27.0-32.0); Mean Corpuscular Volume 88.5 fL (80-94); Mean Platelet Vol. 10.8 fl (6.2-12.0); Monocyte# 0.87 X10^3/uL; Monocyte% 6.7 % (0-10); Neutrophil % 89.3 % (47-70); Platelet Count 163 K/mm3 (150-450); RBC Distribution Width CV 13.1 % (11.6-14.6); RBC Distribution Width SD 42.2 fl (35.1-43.9)
[2018-09-16 06:26] LABS: Differential Indicated SCAN CRITERIA MET; POSITIVE COUNT NO; POSITIVE DIFFERENTIAL YES; POSITIVE MORPHOLOGY NO
[2018-09-16 06:35] LABS: Anion Gap 8 (5-15); BUN 18 mg/dL (7-18); BUN/Creat Ratio 17.5 RATIO (10-20); Calcium,Total 8.2 mg/dL (8.5-10.1); Chloride 101 mmol/L (98-107); Creatinine, Serum 1.03 mg/dL (0.70-1.30); EST Glomerular Filtration Rate 81 mL/min (>60); Est Glom Filt Rate - Afr Amer 98 mL/min (>60); Estimated Creatinine Clearance 88.59 ml/min; Glucose 157 mg/dL (74-106); Magnesium 2.3 mg/dL (1.6-2.6); Phosphorus 2.4 mg/dL (2.5-4.9); Potassium 4.4 mmol/L (3.5-5.1); Sodium Level 138 mmol/L (136-145)
[2018-09-16] MEDS: Lisinopril 5 MG Tablet PO (09:14)
[2018-09-16] MEDS: Enoxaparin 40 MG/0.4 ML Syringe SC (09:15)
[2018-09-16] MEDS: Phenol/Sodium Phenolate 180ML 3 SPRAY MM ×3 (09:16→15:54)
[2018-09-16] MEDS: Na Biphos/Potassium Phosphate PACKET 2 PACKET PO ×2 (09:17→21:16)
--- NOTE | 2018-09-16 09:36 | NURSING ---
stoma photo: right lower abdomen ileostomy
--- NOTE | 2018-09-16 09:38 | NURSING ---
wound photo: abdomen
--- NOTE | 2018-09-16 09:45 | NURSING ---
removed ostomy appliance from the right lower abdomen. there was some drainage noted on the flange from the incision under the appliance. stoma is beefy red and measures approx 1 1/4. mei is in place under stoma. the mei is sutured in place and does make it slightly difficult to pouch around. some drainage may be leaking under the mei as well. pouching will be much easier once the mei can be removed.peristomal skin is intact. cleansed with dial soap and water. pat dry. applied a new 2 piece flat Osiris appliance. had applied a new opsite dressing over the steri strips just lateral to the stoma prior to placing the ostomy appliance. pt states that his girlfriend and a couple of family members who are nurses will be helping with the ostomy changes at home. also encouraged patient to have home health for a little while at home. Discussed with WILLIAM Ramirez and LINK Ramirez. will continue education with patient during admission. pt tolerated well. denies further needs or questions at this time.
--- NOTE | 2018-09-16 11:39 | CASEMGMT ---
RN CM Face to Face with patient for initial transition planning/care coordination assessment. RN CM introduced self and role at [facility]. Patient sitting in chair, alert and oriented. Patient willing to participate in assessment and is able to answer all questions appropriately. Care providers, pharmacy, and demographics verified. Patient wishes to discharge home with possible HHC for wound care teaching. Patient would like [facility] for HHC. [facility] Patient states he has no further needs or concerns at this time. CM to follow for discharge planning needs that may arise. PCP: Rj Chiang CNP at [facility] Specialists: surgeon Em Preferred Pharmacy: [facility] Insurance: [place] Prescription Benefit: Yes Living Will/HPOA: None LNOK: Sons, girlfriend Living Arrangements: Patient lives alone in mobile home. Patient was independent and currently is employed. Transportation: self/girlfriend DME/HHC: Patient denies DME and previous HHC. Patient states that his girlfriend is able to help him at home. Disposition Plan: Patient to discharge home with possible HHC, family support, and follow-up plans in place. Ashley JEFFERS, RN, CM
--- NOTE | 2018-09-16 11:50 | PCM.PN.SRG ---
Subjective: Patient appears to be doing well this morning. No complaints overnight. - Physical Exam General: Alert, Oriented x3 Neck: No JVD Lungs: Normal air movement Cardiovascular: Regular rate, Regular Rhythm Abdomen: Soft, Non-Distended, Tender - Appropriately mildly tender Vital Signs Temp Pulse Resp BP Pulse Ox 97.6 F L 62 14 111/78 91 09/16/18 09:04 09/16/18 09:04 09/16/18 09:04 09/16/18 09:04 09/16/18 10:05 Oxygen Flow Rate (L/min) 8 Oxygen Delivery Method Venturi Mask Weight: 185 lb Body Mass Index (BMI) 26.5 Intake and Output for Last 24 Hours 09/14/18 09/15/18 09/16/18 23:59 23:59 23:59 Intake Total 880 / 880 4296 / 4296 1388 / 1388 Output Total 325 / 325 930 / 930 Balance 880 / 880 3971 / 3971 458 / 458 Laboratory Tests Past 24 Hrs 09/16/18 09/16/18 05:34 05:34 WBC 13.0 H RBC 4.60 Hgb 13.7 Hct 40.7 MCV 88.5 MCH 29.8 MCHC 33.7 RDW 13.1 RDW Differential 42.2 Plt Count 163 MPV 10.8 Immature Gran % (Auto) 0.200 Neut % (Auto) 89.3 H Lymph % (Auto) 3.8 L Ector % (Auto) 6.7 Eos % (Auto) 0.0 Baso % (Auto) 0.0 Absolute Neuts (auto) 11.6 H Absolute Lymphs (auto) 0.50 L Total Counted Not Reportable Differential Comment Sodium 138 Potassium 4.4 Chloride 101 Carbon Dioxide 29.0 Anion Gap 8 BUN 18 Creatinine 1.03 Estim Creat Clear Calc 88.59 Est GFR (MDRD) Af Amer 98 Est GFR (MDRD) Non-Af 81 BUN/Creatinine Ratio 17.5 Glucose 157 H Calcium 8.2 L Phosphorus 2.4 L Magnesium 2.3 Medical Necessity - Tobacco Use Smoking Status: Former smoker Assessment/Plan All Active Problems (Last Reviewed 09/14/18 @ 10:48 by Jerry Strickland MD) Umbilical hernia (Acute) GERD (gastroesophageal reflux disease) (Acute) Diverticulitis of colon with perforation (Acute) 48-year-old male with perforated sigmoid diverticulitis status post resection with anastomosis and diverting loop ileostomy 1. Patient seems to be doing well this morning. Urine output was good and I will remove the Norton. Patient has no output from his ileostomy yet continue NG tube. 2. Continue n.p.o. and IV fluids and antibiotics. PPI. Lovenox. Lxe Diaz MD Pager: [facility] [address] [place] [address] [address] [place] [address] Office:
--- NOTE | 2018-09-16 15:03 | NURSING ---
added ng tape to the tape already on pts nose/ng, pt was c/o it irritating but decided he did not want the old tape removed.
[2018-09-17] VITALS (9 sets, daily range): BP systolic 119–149; BP diastolic 74–95; PULSE 56–89; RESP 12–18; TEMP 36.8–37.1; O2SAT 91–97
[2018-09-17] MEDS: HYDROmorphone 1 MG/ML Syringe IV ×3 (00:45→17:07)
[2018-09-17] MEDS: Lactated Ringers 1,000 ML 125 ML IV (04:05)
[2018-09-17 05:41] LABS: Absolute Lymphocyte Count 0.95 X10^3/ul (0.83-4.51); Absolute Neutrophil Count 6.8 X10^3/uL (2.0-7.7); Eosinophil# 0.06 X10^3/uL; Eosinophils% 0.7 % (0-5); Hematocrit 37.4 % (40-54); Hemoglobin 12.4 g/dl (13.0-16.5); Lymphocyte # 0.95 X10^3/ul (4.0); Mean Corp Hgb Conc 33.2 g/gl (32-36); Mean Corpuscular Hgb 30.2 pg (27.0-32.0); Mean Corpuscular Volume 91.2 fL (80-94); Mean Platelet Vol. 10.4 fl (6.2-12.0); Monocyte# 0.85 X10^3/uL; Monocyte% 9.8 % (0-10); Neutrophil # 6.77 X10^3/uL (2.7-7.7); Neutrophil % 78.3 % (47-70); Platelet Count 187 K/mm3 (150-450); RBC Distribution Width CV 13.3 % (11.6-14.6); RBC Distribution Width SD 43.5 fl (35.1-43.9); White Blood Count 8.7 K/mm3 (4.4-11.0)
[2018-09-17 05:47] LABS: POSITIVE COUNT NO; POSITIVE DIFFERENTIAL NO; POSITIVE MORPHOLOGY NO
[2018-09-17 05:55] LABS: Anion Gap 8 (5-15); BUN 24 mg/dL (7-18); BUN/Creat Ratio 28.6 RATIO (10-20); Calcium,Total 8.5 mg/dL (8.5-10.1); Chloride 104 mmol/L (98-107); Creatinine, Serum 0.84 mg/dL (0.70-1.30); EST Glomerular Filtration Rate 103 mL/min (>60); Est Glom Filt Rate - Afr Amer 125 mL/min (>60); Estimated Creatinine Clearance 108.63 ml/min; Glucose 103 mg/dL (74-106); Potassium 4.3 mmol/L (3.5-5.1); Sodium Level 141 mmol/L (136-145)
[2018-09-17] MEDS: Ketorolac 15 MG/ML Vial IV ×3 (06:29→21:59)
--- NOTE | 2018-09-17 08:22 | NURSING ---
In to see patient with Dr Diaz. there is approx 150cc's liquid green/brown stool in the ileostomy appliance. plan is to d/c NG tube today and patient will start on clear liquids. Dr Diaz wants the jay jay to stay in place until tomorrow. they can be removed then, and left out if no purulent drainage noted. pt is currently up in chair. will change ABD pads and assess incision. will continue teaching with patient and family today.
--- NOTE | 2018-09-17 08:50 | PN.SURG_ITS ---
Subjective: Patient is doing well this morning. He had copious amount of stool through his ileostomy bag overnight. Abdominal pain is well controlled. - Physical Exam General: Alert, Oriented x3, Cooperative Lungs: Short of Breath Cardiovascular: Regular rate, Regular Rhythm Abdomen: Soft, Non-Distended Vital Signs Temp Pulse Resp BP Pulse Ox 98.5 F 78 16 121/74 H 92 09/17/18 02:00 09/17/18 04:00 09/17/18 04:00 09/17/18 02:00 09/17/18 07:56 Oxygen Flow Rate (L/min) 2 Oxygen Delivery Method Venturi Mask Weight: 184 lb 15.485 oz Body Mass Index (BMI) 26.5 Intake and Output for Last 24 Hours 09/15/18 09/16/18 09/17/18 23:59 23:59 23:59 Intake Total 4296 / 4296 2333 / 2333 2661 / 2661 Output Total 325 / 325 1330 / 1330 335 / 335 Balance 3971 / 3971 1003 / 1003 2326 / 2326 Laboratory Tests Past 24 Hrs 09/17/18 09/17/18 05:28 05:28 WBC 8.7 RBC 4.10 L Hgb 12.4 L Hct 37.4 L MCV 91.2 MCH 30.2 MCHC 33.2 RDW 13.3 RDW Differential 43.5 Plt Count 187 MPV 10.4 Immature Gran % (Auto) 0.200 Neut % (Auto) 78.3 H Lymph % (Auto) 11.0 L [place] % (Auto) 9.8 Eos % (Auto) 0.7 Baso % (Auto) 0.0 Absolute Neuts (auto) 6.8 Absolute Lymphs (auto) 0.95 Total Counted Not Reportable Sodium 141 Potassium 4.3 Chloride 104 Carbon Dioxide 29.0 Anion Gap 8 BUN 24 H Creatinine 0.84 Estim Creat Clear Calc 108.63 Est GFR (MDRD) Af Amer 125 Est GFR (MDRD) Non-Af 103 BUN/Creatinine Ratio 28.6 H Glucose 103 Calcium 8.5 Medical Necessity - Tobacco Use Smoking Status: Former smoker Assessment/Plan All Active Problems (Last Reviewed 09/14/18 @ 10:48 by Jerry Strickland MD) Umbilical hernia (Acute) GERD (gastroesophageal reflux disease) (Acute) Diverticulitis of colon with perforation (Acute) 48-year-old male status post sigmoid colectomy with diverting ileostomy 1. Patient seems to be doing well this morning. He has a copious amount of stool in his ileostomy bag. His NG did not put much out. I will remove his NG and start him on clear liquid diet. 2. Patient rapidly desats off oxygen. I suspect that splinting from the pain caused atelectasis. I encouraged incentive spirometer use and ambulation. I will also start duo nebs. 3. Patient's white count has returned to normal I will stop antibiotics. Incision is clean dry and intact and jay jay will be removed tomorrow. Stoma is pink and putting out stool. Lex Diaz MD Pager: [facility] [address] [place] [address] [address] [place] [address] Office:
[2018-09-17] MEDS: Na Biphos/Potassium Phosphate PACKET 2 PACKET PO ×2 (09:46→21:59)
[2018-09-17] MEDS: Lisinopril 5 MG Tablet PO (09:49)
[2018-09-17] MEDS: Enoxaparin 40 MG/0.4 ML Syringe SC (09:58)
[2018-09-17] MEDS: Pantoprazole Sodium 40 MG Tablet PO (09:59)
[2018-09-17] MEDS: HYDROmorphone 0.5 MG/0.5 ML SYRINGE IV (11:37)
[2018-09-17] MEDS: Lactated Ringers 1,000 ML 75 ML IV (12:14)
--- NOTE | 2018-09-17 14:28 | NURSING ---
[facility] student nurse's charting reviewed for educational learning purposes by elva rogers.
[2018-09-17] MEDS: 0.9% NaCl Peripheral Flush Adult/Peds IV ×2 (14:46→17:07)
[2018-09-18] MEDS: Lactated Ringers 1,000 ML 75 ML IV ×2 (00:58→12:53)
[2018-09-18] MEDS: HYDROmorphone 0.5 MG/0.5 ML SYRINGE IV (00:58)
[2018-09-18 01:56] VITALS: BP 134/74; PULSE 72; RESP 18; TEMP 37.1; O2SAT 93
[2018-09-18 06:08] LABS: Absolute Neutrophil Count 4.1 X10^3/uL (2.0-7.7); Basophil# 0.01 X10^3/uL; Basophil% 0.2 % (0-1); Eosinophil# 0.11 X10^3/uL; Eosinophils% 1.9 % (0-5); Hematocrit 40.2 % (40-54); Hemoglobin 13.3 g/dl (13.0-16.5); Lymphocyte % 15.6 % (19-41); Mean Corp Hgb Conc 33.1 g/gl (32-36); Mean Corpuscular Hgb 30.2 pg (27.0-32.0); Mean Corpuscular Volume 91.2 fL (80-94); Mean Platelet Vol. 10.3 fl (6.2-12.0); Monocyte# 0.63 X10^3/uL; Monocyte% 10.9 % (0-10); Neutrophil # 4.11 X10^3/uL (2.7-7.7); Neutrophil % 71.1 % (47-70); Platelet Count 188 K/mm3 (150-450); RBC Distribution Width CV 12.9 % (11.6-14.6); RBC Distribution Width SD 42.9 fl (35.1-43.9); Red Blood Count 4.41 M/mm3 (4.6-6.2); White Blood Count 5.8 K/mm3 (4.4-11.0)
[2018-09-18 06:09] LABS: POSITIVE COUNT NO; POSITIVE DIFFERENTIAL NO; POSITIVE MORPHOLOGY NO
[2018-09-18] MEDS: Ketorolac 15 MG/ML Vial IV ×3 (06:12→21:43)
[2018-09-18 06:23] LABS: Anion Gap 7 (5-15); BUN 25 mg/dL (7-18); BUN/Creat Ratio 28.2 RATIO (10-20); Calcium,Total 8.6 mg/dL (8.5-10.1); Chloride 105 mmol/L (98-107); Creatinine, Serum 0.89 mg/dL (0.70-1.30); EST Glomerular Filtration Rate 97 mL/min (>60); Est Glom Filt Rate - Afr Amer 117 mL/min (>60); Estimated Creatinine Clearance 102.53 ml/min; Glucose 93 mg/dL (74-106); Sodium Level 142 mmol/L (136-145)
[2018-09-18 07:45] VITALS: BP 124/69; PULSE 66; RESP 18; TEMP 36.7; O2SAT 93
--- NOTE | 2018-09-18 09:59 | PN.SURG_ITS ---
Subjective: Patient evaluated sitting in a chair. He notes minimal amount of abdominal discomfort. He denies nausea, vomiting. Patient tried clear liquids last night. He denies nausea with that. He is hesitant to drink too much. He is having lots of liquid output in his ostomy bag. He notes air in his bag. - Physical Exam General: Alert, Oriented x3, Cooperative Abdomen: Hypoactive Bowel Sounds, Distended, Tender, - - Incision- healing very nicely. All 5 telfa jay jay were removed. No purulent material seen. ABD pad was placed over top. Ileostomy with dark greenish liquidy stool in the ostomy bag. Vital Signs Temp Pulse Resp BP Pulse Ox 98.0 F 66 18 124/69 H 93 09/18/18 07:45 09/18/18 07:45 09/18/18 07:45 09/18/18 07:45 09/18/18 07:45 Oxygen Flow Rate (L/min) 4 Oxygen Delivery Method Room Air Weight: 184 lb 15.485 oz Body Mass Index (BMI) 26.5 Intake and Output for Last 24 Hours 09/16/18 09/17/18 09/18/18 23:59 23:59 23:59 Intake Total 2333 / 2333 3460 / 3460 1431 / 1431 Output Total 1330 / 1330 585 / 585 1675 / 1675 Balance 1003 / 1003 2875 / 2875 -244 / -244 Laboratory Tests Past 24 Hrs 09/18/18 09/18/18 05:54 05:54 WBC 5.8 RBC 4.41 L Hgb 13.3 Hct 40.2 MCV 91.2 MCH 30.2 MCHC 33.1 RDW 12.9 RDW Differential 42.9 Plt Count 188 MPV 10.3 Immature Gran % (Auto) 0.300 Neut % (Auto) 71.1 H Lymph % (Auto) 15.6 L [place] % (Auto) 10.9 H Eos % (Auto) 1.9 Baso % (Auto) 0.2 Absolute Neuts (auto) 4.1 Absolute Lymphs (auto) 0.90 Total Counted Not Reportable Sodium 142 Potassium 4.0 Chloride 105 Carbon Dioxide 30.0 Anion Gap 7 BUN 25 H Creatinine 0.89 Estim Creat Clear Calc 102.53 Est GFR (MDRD) Af Amer 117 Est GFR (MDRD) Non-Af 97 BUN/Creatinine Ratio 28.2 H Glucose 93 Calcium 8.6 Medical Necessity - Tobacco Use Smoking Status: Former smoker Assessment/Plan All Active Problems (Last Reviewed 09/14/18 @ 10:48 by Jerry Strickland MD) Umbilical hernia (Acute) GERD (gastroesophageal reflux disease) (Acute) Diverticulitis of colon with perforation (Acute) I am following this patient with Dr. Diaz S/p exploratory laparotomy with sigmoid colectomy and diverting ileostomy creation Labs reviewed. WBC is normal Increase diet to full liquids Possible discharge today or tomorrow. I will discuss this patient with Dr. Diaz We will continue to monitor this patient Code Visit Inpatient E&M: 88892 Subs Hosp L1 - POST-OP/NO CHARGE
[2018-09-18] MEDS: Enoxaparin 40 MG/0.4 ML Syringe SC (10:01)
[2018-09-18] MEDS: Lisinopril 5 MG Tablet PO (10:03)
[2018-09-18] MEDS: Pantoprazole Sodium 40 MG Tablet PO (10:03)
[2018-09-18] MEDS: Na Biphos/Potassium Phosphate PACKET 2 PACKET PO ×2 (10:03→21:44)
[2018-09-18] MEDS: oxyCODONE 5 MG Tablet PO ×3 (11:42→21:43)
[2018-09-18 14:00] VITALS: BP 119/83; PULSE 69; RESP 18; TEMP 36.7; O2SAT 94
[2018-09-18] MEDS: 0.9% NaCl Peripheral Flush Adult/Peds IV (14:37)
[2018-09-18 14:45] VITALS: O2SAT 94
[2018-09-18 20:20] VITALS: BP 121/80; PULSE 71; RESP 18; TEMP 36.9; O2SAT 95
[2018-09-19] MEDS: oxyCODONE 5 MG Tablet PO ×3 (01:40→10:33)
[2018-09-19] MEDS: Lactated Ringers 1,000 ML 75 ML IV (01:49)
[2018-09-19 02:00] VITALS: BP 132/87; PULSE 65; RESP 16; TEMP 36.8; O2SAT 95
[2018-09-19] MEDS: Ketorolac 15 MG/ML Vial IV (05:51)
[2018-09-19 07:10] VITALS: O2SAT 95
--- NOTE | 2018-09-19 07:57 | NURSING ---
PT AWARE OF REGULAR DIET PER DR. ISAAC. PT IS SITTING UP IN CHAIR. KARI Wylie IN ROOM, TOOK ELFEGO OFF OF STOMA AND CHANGED BAG.
[2018-09-19 07:58] VITALS: BP 136/90; PULSE 85; RESP 18; TEMP 36.9; O2SAT 94
--- NOTE | 2018-09-19 07:58 | PCM.DC.REC ---
Discharge Diet: No Restrictions Discharge Activity: Return to Normal Activity, May Shower Lifting Restrictions: 20 lbs for 4 weeks Additional Activity Instructions:: Be aware that pain medications may cause nausea. You should typically eat light foods as you take your pain medications. Call your doctor if your incision/area has: Continuous Slow Oozing, Sudden Increased Bleeding, Increased Pain/ Swelling, Increased Redness, Foul Smelling Discharge, Swelling at the incision site Call your doctor if you observe: Fever of 101 or Higher Cleanse incision/area with: Soap & Water Additional Dressing/Incision Instructions:: Change dressing as needed, change ostomy bag as needed. OK to shower with bandages and ostomy bag off, pat wound dry. Allergies/Adverse Reactions: Allergies No Known Allergies Allergy (Verified 09/14/18 09:21) Medications to take at Discharge Omeprazole [Prilosec] 20 mg PO DAILY 06/29/18 [place]-3 Fatty Acids/Fish Oil [Fish Oil 1,000 mg Capsule] 1 ea PO DAILY 07/31/18 Lisinopril 5 mg PO DAILY 08/05/18 Oxycodone [Oxyir] 5 - 10 mg PO Q4H PRN PRN 7 Days #40 tablet 09/19/18 The following prescriptions were given: Oxycodone [Oxyir] 5 - 10 mg PO Q4H PRN PRN 7 Days #40 tablet PRN Reason: Severe Pain (6-10/10) Primary Care Physician: Care Physician,No Primary [Primary Care Provider] - Test Results: Test results from this visit will be discussed in further detail at your follow-up appointment, if applicable. Please Follow Up With: Lex Diaz MD When: Please call to schedule 1 week follow up appointment. [phone]
--- NOTE | 2018-09-19 08:02 | DS.PCM_ITS ---
Discharge Date and Diagnosis Date of Admission: 09/14/18 Date of Discharge: 09/19/18 - Secondary Discharge Diagnosis Chronic Problems (Last Reviewed 09/14/18 @ 10:48 by Jerry Strickland MD) HTN (hypertension) (Chronic) Hospital Course and Treatment Imaging Results: Clinical Impression(s) from Imaging Studies Abdomen/Pelvis CT 09/14/18 09:14 IMPRESSION: Sigmoid diverticulitis with pneumoperitoneum consistent with perforation. Surgical consultation recommended. Ileus with distention of small bowel loops. Left renal stone. Results discussed with Josefina Martinez nurse caring for the patient working with Dr. Salter . N.B. : The above information has been verbally conveyed by Brent Collins MD to Vianney Salter MD, on 09/14/2018 09:56:11 (ET). Electronically Signed: Brent Collins MD at 9:58 EST , Service support , ADDENDUM: 09/14/18 1005 IMPRESSION: Sigmoid diverticulitis with pneumoperitoneum consistent with perforation. Surgical consultation recommended. Ileus with distention of small bowel loops. Left renal stone. Results discussed with Josefina Martinez nurse caring for the patient working with Dr. Salter . N.B. : The above information has been verbally conveyed by Brent Collins MD to Vianney Salter MD, on 09/14/2018 09:56:11 (ET). 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 He was taken for laparotomy with sigmoid resection and reanastomosis and diverting loop ileostomy. Patient tolerated the procedure well and was brought to the floor with NG tube in place. Once patient was having good ileostomy output his NG tube was removed and he was on the day of discharge the patient was tolerating full liquid diet and advance to regular diet and doing well. Patient will be discharged home and follow-up in 1 week. Ostomy teaching was performed and ostomy supplies were ordered. - Physical Exam General: Alert, Cooperative Lungs: Normal air movement Cardiovascular: Regular rate, Regular Rhythm Abdomen: Soft, Non Tender, Non-Distended Vital Signs Temp Pulse Resp BP Pulse Ox 98.5 F 85 18 136/90 H 94 09/19/18 07:58 09/19/18 07:58 09/19/18 07:58 09/19/18 07:58 09/19/18 07:58 Oxygen Flow Rate (L/min) 4 Oxygen Delivery Method Room Air Weight: 184 lb 15.485 oz Body Mass Index (BMI) 26.5 Intake and Output for Last 24 Hours 09/17/18 09/18/18 09/19/18 23:59 23:59 23:59 Intake Total 3460 / 3460 3784 / 3784 726 / 726 Output Total 585 / 585 3525 / 3525 310 / 310 Balance 2875 / 2875 259 / 259 416 / 416 Discharge Diet: No Restrictions Discharge Activity: Return to Normal Activity, May Shower Additional Activity Instructions:: Be aware that pain medications may cause nausea. You should typically eat light foods as you take your pain medications. Call your doctor if your incision/area has: Continuous Slow Oozing, Sudden Increased Bleeding, Increased Pain/ Swelling, Increased Redness, Foul Smelling Discharge, Swelling at the incision site Call your doctor if you observe: Fever of 101 or Higher Cleanse incision/area with: Soap & Water Additional Dressing/Incision Instructions:: Change dressing as needed, change ostomy bag as needed. OK to shower with bandages and ostomy bag off, pat wound dry. Home Medications: Medications to take at Discharge Omeprazole [Prilosec] 20 mg PO DAILY 06/29/18 [place]-3 Fatty Acids/Fish Oil [Fish Oil 1,000 mg Capsule] 1 ea PO DAILY 07/31/18 Lisinopril 5 mg PO DAILY 08/05/18 Oxycodone [Oxyir] 5 - 10 mg PO Q4H PRN PRN 7 Days #40 tablet 09/19/18 Following Prescrptions Were Given to Patient: Oxycodone [Oxyir] 5 - 10 mg PO Q4H PRN PRN 7 Days #40 tablet PRN Reason: Severe Pain (-04/23) Primary Care Physician: Care Physician,No Primary [Primary Care Provider] - Please Follow Up With: Lex Diaz MD When: Please call to schedule 1 week follow up appointment. [phone] Medical Necessity - Tobacco Use Smoking Status: Former smoker Meaningful Use Info Meaningful Use Diagnoses (Choose all that apply): None applicable
--- NOTE | 2018-09-19 08:17 | NURSING ---
wound/stoma photo: abdomen
--- NOTE | 2018-09-19 08:24 | NURSING ---
Ostomy appliance removed. there was a small leak noted medially. removed the stoma mei. peristomal skin is intact. stoma is slightly roya and beefy red in color. stoma is slightly oval in shape and measures approx 1 1/4. cleansed peristomal skin with soap and water. pat dry. applied a 2 piece flat Osiris appliance with a small amount of stoma paste. pt tolerated well. pt may need a convex appliance down the road if stoma would happen to retract at all. Pt states that his [id number] and niece will both be able to assist with changing the appliance at home. pt will also have home health available for a while at home. patient has been doing well emptying the appliance. denies further questions or needs at this time. patient will be sent home with 3 appliances. this should be enough until his supplies come to the home. pt very appreciative of care.
[2018-09-19] MEDS: Pantoprazole Sodium 40 MG Tablet PO (10:34)
[2018-09-19] MEDS: Lisinopril 5 MG Tablet PO (10:34)
[2018-09-19 12:39] VITALS: BP 144/96; PULSE 99; RESP 18; TEMP 37.4; O2SAT 93
--- NOTE | 2018-09-19 12:45 | NURSING ---
pt tolerated regular breakfast and lunch. ate 50% of lunch and 25% for breakfast. BP and HR elevated. This nurse cortexted Dr. Diaz. Waiting for response.
--- NOTE | 2018-09-19 13:38 | NURSING ---
aware of high bp and HR. okay to still discharge
== END 2018-09-19 14:41 | disposition home or self-care (01) | DRG 331 ==
LOC: ED 08:49 → MS3 09-15 07:09
PROVIDERS: Surgery; Admitting Provider Surgery; Emergency Provider Emergency Medicine; Visit Provider Surgery
PROC: 0DTN0ZZ Resection of Sigmoid Colon, Open Approach (ICD-10-PCS; CPT 44204; principal; 2018-09-15 10:20)
DX: K57.20 Diverticulitis of large intestine with perforation and abscess without bleeding (principal); I10 Essential (primary) hypertension; K21.9 Gastro-esophageal reflux disease without esophagitis; Z53.31 Laparoscopic surgical procedure converted to open procedure; Z87.891 Personal history of nicotine dependence
CPT/HCPCS: 36415; 74176; 80048; 80076; 81001; 83690; 83735; 84100; 85025; 85610; 88307; 93005; 94762; 99282; 99406; J7030; J7120; A4216; C1760; J0744; J2405; J3490

== ENCOUNTER → 2018-10-27 08:19 | Outpatient (CLI) | payer BC, SELFPAY ==
[2018-10-24 09:49] VITALS: BMI 26.5
--- NOTE | 2018-10-27 08:35 | RAD_ITS ---
STUDY: GASTROGRAFIN BARIUM ENEMA. REASON FOR EXAM: Male, 48 years old. History of a prior sigmoid diverticulitis and perforation with colostomy. FLUOROSCOPY TIME (if supplied): (1:20) minutes/seconds. 8 fluoroscopic images were obtained. TECHNIQUE: A upper extremity surgeon film was obtained. Following this, Gastrografin was introduced retrograde through the rectum. The entire colon was opacified. COMPARISON: None. FINDINGS: On the upper extremity surgeon film, there is evidence of endplate spondylosis and degenerative changes of the lumbar spine. Gastrografin was introduced retrograde through the rectum. Entire colon was opacified. There is evidence of diverticular disease in the sigmoid colon extending into the splenic flexure. There is evidence of a linear collection of contrast in the mid sigmoid colon suggestive of peridiverticular leak. Scattered diverticula are also seen in the transverse colon and hepatic flexure. No evidence of obstruction. RAD/Barium Enema No Air Cont IMPRESSION: And diverticulosis most pronounced in the left hemicolon. Findings suggestive of a focal linear leak present in the mid sigmoid colon. Electronically Signed: Srinivas Aguirre, at 8:56 EDT , Service support ,
== END ==
PROVIDERS: Referring Provider Surgery; Visit Provider Surgery
DX: Z93.3 Colostomy status (principal); K57.20 Diverticulitis of large intestine with perforation and abscess without bleeding
CPT/HCPCS: 74270

== ENCOUNTER → 2018-11-14 15:32 | Outpatient (CLI) | payer BC, SELFPAY ==
[2018-10-24 09:49] VITALS: BMI 26.5
--- NOTE | 2018-11-14 15:35 | CT_ITS ---
STUDY: CT ABDOMEN AND PELVIS WITHOUT CONTRAST REASON FOR EXAM: Male, 48 years old. Anastomosis RADIATION DOSAGE (If Supplied By Facility): DLP = ( 758.09 ) mGycm TECHNIQUE: Transaxial images were obtained from the dome of the diaphragm to the symphysis pubis without oral contrast, and without intravenous contrast. Sagittal and coronal images were reconstructed. Individualized dose optimization techniques were used for this CT. COMPARISON: CT abdomen pelvis September 14, 2018 FINDINGS: Evaluation of the abdominal viscera is limited in the absence of intravenous contrast. The visualized lung bases are clear. The visualized portions of the heart and pericardium are within normal limits. There are no calcified gallstones present. The liver demonstrates an unremarkable unenhanced appearance. The spleen is normal in size. The pancreas demonstrates an unremarkable unenhanced appearance. The adrenal glands are within normal limits. There are no obstructing renal stones. There is no hydronephrosis. Normal visualized stomach. There is mild persistent inflammatory change surrounding the descending colon with multiple diverticula present throughout the colon. Pneumoperitoneum has resolved. There is no contrast extravasation from the small bowel or colon. Interval right lower quadrant loop ileostomy has been performed. There is no evidence of bowel obstruction. The appendix is normal. The aorta is normal in caliber. There is no abdominal or pelvic free air, free fluid, fluid collection or lymphadenopathy. There are no destructive osseous lesions. CT/Abdomen/Pelvis without Cont IMPRESSION: Interval right lower quadrant loop ileostomy. No evidence of bowel obstruction or contrast extravasation. Colonic diverticulosis is again seen. Mild persistent inflammatory change surrounding the descending colon. Interval resolution of pneumoperitoneum. Correlate clinically. Electronically Signed: Christ Gomez, at 17:24 EDT Tel , Service support ,
== END ==
PROVIDERS: Referring Provider Surgery; Visit Provider Surgery
DX: K57.20 Diverticulitis of large intestine with perforation and abscess without bleeding (principal)
CPT/HCPCS: 74176

== ENCOUNTER 2018-12-09 05:55 | Inpatient (IN) | payer BC, SELFPAY ==
[2018-11-21 09:44] VITALS: BMI 26.5
[2018-12-09] VITALS (16 sets, daily range): BP systolic 98–143; BP diastolic 59–81; PULSE 54–96; RESP 16; TEMP 36.4–36.8; O2SAT 85–100; BMI 25.5
--- NOTE | 2018-12-09 07:16 | PCM.HP.BLA ---
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 Is patient in pain?: No Allergies No Known Allergies Allergy (Verified 11/21/18 09:43) Medications Omeprazole [Prilosec] 20 mg PO DAILY 06/29/18 [History Confirmed 11/21/18] Lisinopril 5 mg PO DAILY 08/05/18 [History Confirmed 11/21/18] PFS Medical History Umbilical hernia (Acute) GERD (gastroesophageal reflux disease) (Acute) HTN (hypertension) (Chronic) Diverticulitis of colon with perforation (Acute) Surgical History History of colectomy (Acute ~09/2018) S/P colonoscopy (Acute ~08/05/18) S/P nasal surgery (Acute) Family History Mother Heart disease Father Heart disease Cancer Social History Smoking Status: Former smoker Smokeless tobacco user: chewing tobacco alcohol intake: current alcohol intake frequency: a few times a month substance use type: does not use caffeine: Yes what type of physical activity do you participate in: weight training HPI HPI HPI: ROGERIO CHAVEZ, is a 48 M who presents to the office today for HPI HPI Surgical H&P: Yes HPI: ROGERIO CHAVEZ, is a 48 M who presents to the office today for follow-up. Patient describes no abdominal pain and he is doing well. He is having good stool output from his ileostomy and tolerating diet well. He has no left lower quadrant pain. ROS General General: No weight change or fatigue Cardio Cardiovascular: No murmur, pacemaker, heart disease, atrial fibrillation, high blood pressure, heart attack, heart stent, palpitations, shortness of breat with exertion or chest pain Psych Psychiatric: No depression or anxiety Resp Respiratory: No shortness of breath, No sleep apnea, No cough, No COPD, No asthma, No emphysema, No wheezing Gastro Gastrointestinal: No abdominal pain, No nausea or vomiting, No diarrhea, No constipation, No blood in stool, No acid reflux, No hemorrhoids, No ulcers, No gallbladder problem, No black,tarry stools Additional Details: ileostomy Bry Hematologic: No blood thinners Exam Const General: cooperative Orientation: alert, oriented x3 Resp Effort & Inspection: normal respiratory effort Auscultation: clear to auscultation bilaterally Cardio Rate: regular rate Rhythm: regular rhythm Heart Sounds: no murmurs GI Inspection: non-distended Palpation: soft, nontender Other: Ileostomy in the right lower quad Assessment & Plan Problems 1. Diverticulitis of large intestine with perforation without bleeding K57.20 Plan Patient had his initial surgery on September 142018. At that time he had perforation of the colon with diverticulitis. He underwent sigmoid colectomy with reanastomosis and diverting loop ileostomy. About 3 weeks ago he had a barium enema which showed a small leak. 2 more weeks after the study a CT scan was done with rectal contrast which showed no leak. He did have some mild inflammation around the anastomosis. Recommend waiting 2 weeks from now to reverse his ileostomy. Discussed ileostomy reversal with the patient. I discussed that it was possible that I would have to make another midline incision if I was unable to do it through the right lower quadrant incision. I also described the risks of bleeding, infection, injury to underlying bowel. I also advised the patient that despite the CT showing no leak it is always possible of the anastomosis could leak once hard stool was introduced through it. Patient agrees to proceed with ileostomy reversal. Lex Diaz MD Pager: [facility] [address] [place] [address] [address] [place] [address] Office:
--- NOTE | 2018-12-09 07:30 | COL_PTH ---
PATIENT: ROGERIO CHAVEZ LOC: [facility] U#:[id number] AGE/SX: 48/M ROOM: MS305 RE12/09/[address]: Dr. Lex Diaz MD : 1970 BED: 1 DIS: 12/11/2018 SPEC #: [id number] RECD: 12/09/18 15:08 STATUS: LIZZY RERafia #: [id number] CAROLIN: 12/09/18 07:[address]: Lex Diaz DEPT: SURGICAL PATHOLOGY RECD BY: Rj Ivey ENTERED: 12/10/18 09:07 SP TYPE: COLON OTHR DR: No Primary Care Phys Tissues: Ileum, NOS Procedures: Surgery Specimen Level V HEADER OPERATION: Ileostomy reversal PRE-OP DIAGNOSIS: Diverticulitis of large intestine with perforation without bleeding TISSUE SUBMITTED: Prior ileostomy MICROSCOPIC DIAGNOSIS Prior ileostomy: Squamous and enteric mucosa with moderate subacute and chronic inflammation and focal ulceration. CE:maria isabel 12/11/18 MICROSCOPIC DESCRIPTION Slides are reviewed. GROSS DESCRIPTION Received in fixative is one container labeled with the patient's name and designated prior ileostomy. The specimen consists of two irregular fragments of tissue. The larger is characterized by a segment of small bowel with stoma. The segment of small bowel measures 6.5 cm in length x 2 cm in diameter. The stomach measures 2.5 cm in diameter and is surrounded by a 2 mm circumferential segment of skin. The central portion of the stoma shows slightly irregular reddish-brown mucosal tissue. The specimen is serially cross-sectioned to reveal a partially hemorrhagic lumen. The smaller portion of tissue is esparza-brown with a small segment of mucosal-lined tissue. The entire tissue segment measures 4.5 x 1.8 x 1.5 cm. Trade Facilitator sections are submitted as follows: 1-4 - stoma, entirely submitted, 5 - cross-section of small bowel with hemorrhagic lumen, 6 - separate tissue portion. / CE:maria isabel 12/10/18 TC:2 CPT: 06962
[2018-12-09] MEDS: Bupivacaine Mpf 0.5% 30 ML VIAL (09:29)
--- NOTE | 2018-12-09 09:48 | PCM.OPRPT ---
Problem List (1) Diverticulitis of colon with perforation Status: Acute Qualifiers: Report of Operation Date of Procedure: 12/09/18 Pre-Operative Diagnosis: Loop ileostomy from perforated diverticular surgery Post-Operative Diagnosis: Same Surgery/Procedure Performed:: Loop ileostomy reversal Specimen's removed: Prior ileostomy Drains: Damian drain Estimated Blood Loss (mL): 100 cc Description of Procedure: The patient was brought back to the operating room and the abdomen was prepped and draped after general anesthesia was induced. An incision was made around the stoma and the subcutaneous tissue was dissected until the fascia was encountered circumferentially. Using a combination of cautery and sharp dissection the adhesions from the small bowel to the fascia were taken down and then the loop of ileum was brought out through the incision. Proximally and distally to the loop ileostomy and area of bowel was selected and divided leaving healthy tissue. The mesentery to this loop of bowel was taken down with Josefina clamps and 3-0 Vicryl ties and hemostasis was obtained. The prior loop ileostomy was sent for pathology. Next a 75 HIMA stapler was placed into the proximal distal small bowel and these were stapled and antimesenteric fashion. The staple line was inspected on the inside and appeared hemostatic. A TL 60 was then placed across the enterotomy and fired. There was a good lumen in the small bowel afterwards with no bleeding. The staple line was inspected and appeared to be intact and there was no leakage of enteric contents or blood. The bowel was then returned into the abdomen. Using 3-0 silk suture the posterior rectus sheath and peritoneum were reapproximated. Next the anterior rectus sheath fascia was closed in a transverse fashion with interrupted 0 Prolene sutures. The subcutaneous tissue was irrigated and a Damian drain was placed into the space. The [place] was secured on each side with a 4-0 Monocryl suture. The middle of this incision was then closed with interrupted 4-0 Monocryl sutures. A bandage was then applied. Patient was taken to PACU in stable condition after this procedure. Patient tolerated the procedure well. - Admit VTE Documentation VTE Present on Admission: No VTE Mechan Device Prophylaxis: SCD's
[2018-12-09] MEDS: 0.9% Normal Saline 1,000 ML 100 ML IV ×2 (09:50→21:05)
[2018-12-09] MEDS: Ketorolac 15 MG/ML Vial IV ×2 (10:10→21:59)
--- NOTE | 2018-12-09 15:11 | CPS ---
1055...SMI placed at bedside...pt not in room
--- NOTE | 2018-12-09 15:12 | CPS ---
attempted to start SMI...pt unavailable..in bathroom
[2018-12-09] MEDS: Morphine 2 MG/ML Syringe IV ×2 (16:42→21:06)
[2018-12-09] MEDS: Docusate Sodium 100 MG Capsule PO (21:06)
--- NOTE | 2018-12-09 21:58 | NURSING ---
PER PATIENTS THEY WALKED A 1/2 LAP IN THE HALLWAY THIS EVENING.
[2018-12-10] VITALS (7 sets, daily range): BP systolic 100–132; BP diastolic 59–89; PULSE 61–71; RESP 16–18; TEMP 36.6–36.9; O2SAT 94–96
[2018-12-10] MEDS: HYDROcodone Bitartrate/Apap 5/325 Tablet PO ×3 (02:04→20:49)
[2018-12-10 05:35] LABS: Absolute Lymphocyte Count 1.04 X10^3/ul (0.83-4.51); Absolute Neutrophil Count 9.5 X10^3/uL (2.0-7.7); Basophil# 0.01 X10^3/uL; Basophil% 0.1 % (0-1); Eosinophil# 0.03 X10^3/uL; Eosinophils% 0.3 % (0-5); Lymphocyte # 1.04 X10^3/ul (4.0); Lymphocyte % 9.1 % (19-41); Mean Corp Hgb Conc 35.3 g/gl (32-36); Mean Corpuscular Hgb 29.9 pg (27.0-32.0); Mean Corpuscular Volume 84.8 fL (80-94); Mean Platelet Vol. 10.4 fl (6.2-12.0); Monocyte# 0.89 X10^3/uL; Monocyte% 7.7 % (0-10); Neutrophil # 9.49 X10^3/uL (2.7-7.7); Neutrophil % 82.5 % (47-70); Platelet Count 159 K/mm3 (150-450); RBC Distribution Width CV 13.3 % (11.6-14.6); RBC Distribution Width SD 40.5 fl (35.1-43.9); Red Blood Count 4.01 M/mm3 (4.6-6.2); White Blood Count 11.5 K/mm3 (4.4-11.0)
[2018-12-10 05:36] LABS: POSITIVE COUNT NO; POSITIVE DIFFERENTIAL NO; POSITIVE MORPHOLOGY NO
[2018-12-10] MEDS: Ketorolac 15 MG/ML Vial IV ×3 (05:55→22:14)
[2018-12-10 05:58] LABS: Anion Gap 5 (5-15); BUN 13 mg/dL (7-18); BUN/Creat Ratio 14.4 RATIO (10-20); Calcium,Total 8.2 mg/dL (8.5-10.1); Chloride 107 mmol/L (98-107); EST Glomerular Filtration Rate 95 mL/min (>60); Est Glom Filt Rate - Afr Amer 115 mL/min (>60); Estimated Creatinine Clearance 101.39 ml/min; Glucose 102 mg/dL (74-106); Magnesium 1.7 mg/dL (1.6-2.6); Potassium 3.9 mmol/L (3.5-5.1); Sodium Level 142 mmol/L (136-145)
[2018-12-10] MEDS: Enoxaparin 40 MG/0.4 ML Syringe SC (09:05)
[2018-12-10] MEDS: Docusate Sodium 100 MG Capsule PO ×2 (09:05→21:03)
[2018-12-10] MEDS: Pantoprazole Sodium 40 MG Tablet PO (09:05)
[2018-12-10] MEDS: 0.9% Normal Saline 1,000 ML 100 ML IV ×2 (09:06→17:45)
--- NOTE | 2018-12-10 09:50 | NURSING ---
pt stated he is passing gas.
--- NOTE | 2018-12-10 09:58 | PN.SURG_ITS ---
Subjective: Patient reports only minor pain at the incision site. He says no flatus yet. He has been tolerating clear liquids with no nausea - Physical Exam General: Alert, Oriented x3, Cooperative, No apparent distress Lungs: Normal air movement Cardiovascular: Regular rate, Regular Rhythm Abdomen: Soft, Non-Distended Vital Signs Temp Pulse Resp BP Pulse Ox 98.2 F 65 16 114/65 96 12/10/18 09:01 12/10/18 09:01 12/10/18 09:01 12/10/18 09:01 12/10/18 09:01 Oxygen Flow Rate (L/min) 2 Oxygen Delivery Method Room Air Weight: 178 lb 2.136 oz Body Mass Index (BMI) 25.5 Intake and Output for Last 24 Hours 12/08/18 12/09/18 12/10/18 23:59 23:59 23:59 Intake Total 3614 / 3614 1122 / 1122 Balance 3614 / 3614 1122 / 1122 Laboratory Tests Past 24 Hrs 12/10/18 12/10/18 05:04 05:04 WBC 11.5 H RBC 4.01 L Hgb 12.0 L Hct 34.0 L MCV 84.8 MCH 29.9 MCHC 35.3 RDW 13.3 RDW Differential 40.5 Plt Count 159 MPV 10.4 Immature Gran % (Auto) 0.300 Neut % (Auto) 82.5 H Lymph % (Auto) 9.1 L Beadle % (Auto) 7.7 Eos % (Auto) 0.3 Baso % (Auto) 0.1 Absolute Neuts (auto) 9.5 H Absolute Lymphs (auto) 1.04 Total Counted Not Reportable Sodium 142 Potassium 3.9 Chloride 107 Carbon Dioxide 30.0 Anion Gap 5 BUN 13 Creatinine 0.90 Estim Creat Clear Calc 101.39 Est GFR (MDRD) Af Amer 115 Est GFR (MDRD) Non-Af 95 BUN/Creatinine Ratio 14.4 Glucose 102 Calcium 8.2 L Magnesium 1.7 Medical Necessity - Tobacco Use Smoking Status: Former smoker Tobacco Use: Chew Assessment/Plan All Active Problems (Last Reviewed 11/21/18 @ 09:43 by Keri Pleitez) Umbilical hernia (Acute) GERD (gastroesophageal reflux disease) (Acute) Diverticulitis of colon with perforation (Acute) 48-year-old male status post loop ileostomy reversal 1. Patient is tolerating clear liquid diet. I will await bowel function before advancing his diet. I encouraged ambulation and incentive spirometer use. Sebas donnelly is on Lovenox and has SCDs on. Once patient is having bowel function will advance his diet and discharge when ready. 2. Patient has [place] drain in his former ileostomy site to prevent infection. This will be removed in a few days. Lex Diaz MD Pager: [facility] [address] [place] [address] Office:
--- NOTE | 2018-12-10 10:36 | CASEMGMT ---
RN CM Assessment Presentation: Surgical intervention: Loop Ileostomy Reversal Intro role of CM and purpose of RN CM assessment to patient in room. Pt is sitting in chair, awake, alert and able to participate in RN CM assessment. Demographics, PCP and Pharmacy verified. Pt had spoken with surgeon today. Diet advanced to full liquid, if tolerated, may be able to dc today. PCP: Rj Chiang, DIE SINKER APPRENTICE Specialists: Dr. Key, cardiology [facility]: [employer] Prescription Benefit: yes LNOK: Didier Fong and Sidney Suarez Living Arrangements: Lives independently in own home. Denies needing any assistance with ADL's. Transportation: drives or family/friend can drive DME: none HHC: none Patient DC goals: Home DC PLAN: Home. Denies any dc needs. Arron JEFFERS RN ACM
[2018-12-11 02:00] VITALS: PULSE 70; RESP 16; O2SAT 96
[2018-12-11 02:20] VITALS: BP 106/68; PULSE 70; RESP 16; TEMP 36.6; O2SAT 96
[2018-12-11] MEDS: 0.9% Normal Saline 1,000 ML 100 ML IV (03:53)
[2018-12-11] MEDS: Ketorolac 15 MG/ML Vial IV ×2 (06:07→14:41)
[2018-12-11 08:20] VITALS: BP 119/77; PULSE 74; RESP 18; TEMP 36.8; O2SAT 98
--- NOTE | 2018-12-11 08:27 | PCM.PN.SRG ---
Subjective: Patient seems to be doing well this morning. He is passing flatus with no nausea or vomiting. He tolerated full liquids yesterday. - Physical Exam General: Alert, Oriented x3 Oral: Moist Mucosa Lungs: Normal air movement Cardiovascular: Regular rate, Regular Rhythm Abdomen: Soft, Non Tender, Non-Distended Vital Signs Temp Pulse Resp BP Pulse Ox 97.9 F 70 16 106/68 96 12/11/18 02:20 12/11/18 02:20 12/11/18 02:20 12/11/18 02:20 12/11/18 02:20 Oxygen Flow Rate (L/min) 2.5 Oxygen Delivery Method Nasal Cannula Weight: 178 lb 2.136 oz Body Mass Index (BMI) 25.5 Intake and Output for Last 24 Hours 12/09/18 12/10/18 12/11/18 23:59 23:59 23:59 Intake Total 3614 / 3614 3242 / 3242 1430 / 1430 Balance 3614 / 3614 3242 / 3242 1430 / 1430 Medical Necessity - Tobacco Use Smoking Status: Former smoker Tobacco Use: Chew Assessment/Plan All Active Problems (Last Reviewed 11/21/18 @ 09:43 by Keri Pleitez) Umbilical hernia (Acute) GERD (gastroesophageal reflux disease) (Acute) Diverticulitis of colon with perforation (Acute) 48-year-old male status post loop ileostomy reversal 1. Patient seems to be doing well. He was up ambulating. He is tolerating full liquid diet and passing flatus. He has no left lower quadrant pain. His right lower quadrant incision site appears clean and the [place] is still in place. 2. I will advance him to a regular diet today and stop his IV fluids. Plan is to discharge his evening versus tomorrow depending on how he is doing today. Lex Diaz MD Pager: [facility] [address] [place] [address], [address] [place] [address] Office:
[2018-12-11] MEDS: Docusate Sodium 100 MG Capsule PO (09:47)
[2018-12-11] MEDS: Enoxaparin 40 MG/0.4 ML Syringe SC (09:48)
[2018-12-11] MEDS: Pantoprazole Sodium 40 MG Tablet PO (09:48)
[2018-12-11 10:00] VITALS: PULSE 78; RESP 16
[2018-12-11 11:30] VITALS: O2SAT 98
--- NOTE | 2018-12-11 14:25 | DCINST_ITS ---
You will use the following diet at home:: No restrictions, Regular Your food should be the consistency of: Regular Your liquids should be the consistency of: Regular/Thin Discharge Activity: Return to Normal Activity, May Shower Call your doctor if your incision/area has: Continuous Slow Oozing, Sudden Increased Bleeding, Increased Pain/ Swelling, Increased Redness, Foul Smelling Discharge, Swelling at the incision site Call your doctor if you observe: Fever of 101 or Higher Cleanse incision/area with: Soap & Water Allergies/Adverse Reactions: Allergies No Known Allergies Allergy (Verified 12/02/18 14:19) Medications to take at Discharge Omeprazole [Prilosec] 20 mg PO DAILY 06/29/18 Lisinopril 5 mg PO DAILY 08/05/18 Hydrocodone Bitart/Apap 5-325 [Elbert 5/325] 1 - 2 tablet PO Q4H PRN PRN 7 Days #30 tablet 12/11/18 The following prescriptions were given: Hydrocodone Bitart/Apap 5-325 [Elbert 5/325] 1 - 2 tablet PO Q4H PRN PRN 7 Days #30 tablet PRN Reason: Severe Pain (6-1010) Primary Care Physician: Rj Chiang NP-C [Primary Care Provider] - Test Results: Test results from this visit will be discussed in further detail at your follow- up appointment, if applicable. Please Follow Up With: Roxi Fiore PA-C When: Friday 12/15 at [address] Fortune office for drain removal
[2018-12-11 15:30] VITALS: BP 119/85; PULSE 70; RESP 16; TEMP 36.8; O2SAT 99
== END 2018-12-11 15:41 | disposition home or self-care (01) | DRG 331 ==
LOC: ACINP 05:55 → MS3 10:05
PROVIDERS: Admitting Provider Surgery; Family Provider Nurse Practitioner Primary Care; PCP Nurse Practitioner Primary Care; Referring Provider Surgery; Visit Provider Surgery
PROC: 0DBB0ZZ Excision of Ileum, Open Approach (ICD-10-PCS; principal; 2018-12-09 07:10)
DX: K57.20 Diverticulitis of large intestine with perforation and abscess without bleeding (principal); I10 Essential (primary) hypertension; K21.9 Gastro-esophageal reflux disease without esophagitis; Z90.49 Acquired absence of other specified parts of digestive tract; Z72.0 Tobacco use
CPT/HCPCS: 36415; 80048; 83735; 85025; 88307; 94762; 99406; J7030; J7120; J2405

== ENCOUNTER → 2019-07-29 14:18 | Outpatient (CLI) | payer BC, SELFPAY ==
[2019-07-27 15:05] VITALS: BMI 25.5
--- NOTE | 2019-07-29 14:19 | CT_ITS ---
STUDY: CT ABDOMEN AND PELVIS WITH CONTRAST REASON FOR EXAM: Male, 48 years old. Pain. Evaluate for ventral hernia. History of prior bowel resection. RADIATION DOSAGE (If Supplied By Facility): CTDIvol = ( 12.13 ) mGy, DLP = ( 792.43 ) mGycm TECHNIQUE: Transaxial images were obtained from the dome of the diaphragm to the symphysis pubis without oral contrast. 100 ml of 100ML ISOVUE 300 contrast was administered. Sagittal and coronal images were reconstructed. Individualized dose optimization techniques were used for this CT. COMPARISON: None. FINDINGS: The visualized lung bases are clear. The visualized portions of the heart and pericardium are within normal limits. There are no calcified gallstones present. There are subcentimeter hypodensities in the liver which are too small to characterize. However, these likely represent cysts. The spleen is normal in size. The pancreas is within normal limits. The adrenal glands are within normal limits. There is a 3 mm nonobstructing stone in the collecting system of the left kidney. There are no additional urinary calculi. There is no hydronephrosis. There are no focal renal lesions. Normal visualized stomach. There is no bowel obstruction or inflammation. There are colonic diverticula noted without evidence of diverticulitis. The appendix is visualized and appears normal. There is a 4.5 x 3.3 x 1.5 cm fat-containing ventral hernia above the umbilicus. There is a 4.1 x 3.4 x 2.7 cm fat-containing ventral hernia at the level of the umbilicus. There is no bowel containing hernia. The aorta is normal in caliber. There is no abdominal or pelvic free air, free fluid, fluid collection or lymphadenopathy. There are no destructive osseous lesions. There are degenerative changes noted in the spine. CT/Abdomen/Pelvis W IV Cont ONLY IMPRESSION: 2 fat-containing ventral hernias with the larger measuring 4.5 x 3.3 x 1.5 cm. No bowel containing hernia. No bowel obstruction or inflammation. Normal appendix. Subcentimeter nonobstructing left renal stone. No additional urinary calculi. No hydronephrosis. Electronically Signed: Trell Plaza, at 19:39 EST Tel , Service support ,
== END ==
PROVIDERS: Referring Provider Surgery; Visit Provider Surgery
DX: K43.9 Ventral hernia without obstruction or gangrene (principal)
CPT/HCPCS: 74177; Q9967

== ENCOUNTER 2019-08-13 06:54 | Day surgery (SDC) | payer BC, SELFPAY ==
--- NOTE | 2019-07-31 05:15 | HP_ITS ---
Intake Intake Visit Reasons: f/u CT Chief Complaint: post colectomy 3-4 Powder Guard Required: No Is patient in pain?: No Allergies No Known Allergies Allergy (Verified 07/31/19 16:01) [facility] Medical History Umbilical hernia (Acute) GERD (gastroesophageal reflux disease) (Acute) HTN (hypertension) (Chronic) Diverticulitis of colon with perforation (Acute) Social History (Updated 07/31/19 @ 17:15 by Lex Diaz MD) Smokeless tobacco user: chewing tobacco alcohol intake: current alcohol intake frequency: a few times a month substance use type: does not use caffeine: Yes what type of physical activity do you participate in: weight training HPI HPI HPI: ROGERIO CHAVEZ, is a 48 M who presents to the office today for HPI HPI Surgical H&P: Yes HPI: ROGERIO CHAVEZ, is a 48 M who presents to the office today for Ventral hernia. Patient was seen last week and had a CT scan which showed 2 ventral hernias at his midline incision. ROS General General: No weight change or fatigue Cardio Cardiovascular: No murmur, pacemaker, heart disease, atrial fibrillation, high blood pressure, heart attack, heart stent, palpitations, shortness of breat with exertion or chest pain Psych Psychiatric: No depression or anxiety Resp Respiratory: No shortness of breath, No sleep apnea, No cough, No COPD, No asthma, No emphysema, No wheezing Gastro Gastrointestinal: No abdominal pain, No nausea or vomiting, No diarrhea, No constipation, No blood in stool, No acid reflux, No hemorrhoids, No ulcers, No gallbladder problem, No black,tarry stools Bry Hematologic: No blood thinners Exam Const General: cooperative Orientation: alert, oriented x3 Resp Effort & Inspection: normal respiratory effort Auscultation: clear to auscultation bilaterally Cardio Rate: regular rate Rhythm: regular rhythm Heart Sounds: no murmurs GI Inspection: non-distended Palpation: soft, hernia ventral, nontender Assessment & Plan Problems 1. Ventral incisional hernia without obstruction or gangrene K43.2 Plan The patient had recent CT scan which showed 2 ventral incisional hernias both containing fat. I discussed this with the patient and showed him the CT scan. I also recommended laparoscopic ventral hernia repair with mesh. I discussed the risks include but not limited to bleeding, infection, injury to underlying organs, recurrence. Patient understands the risks and will proceed with laparoscopic ventral hernia repair with mesh. Lex Diaz MD Pager: [facility] [address] [place] [address], [address] [place] [address] Office: Coding Level of Care Code Off vis,est,level 3 Diagnoses Ventral incisional hernia without obstruction or gangrene K43.2 07/31/19 1715 <Electronically signed by Lex enciso MD> Date _ Lex Diaz MD I have re-examined the patient. There are no clinical changes since date of exam.
[2019-07-31 15:11] VITALS: BMI 25.5
[2019-08-13] VITALS (11 sets, daily range): BP systolic 92–137; BP diastolic 57–82; PULSE 44–67; RESP 14–17; TEMP 36.2–36.7; O2SAT 92–100; BMI 27.8
[2019-08-13 07:18] LABS: Hematocrit 45.3 % (40-54); Hemoglobin 15.8 g/dL (13.0-16.5); Mean Corp Hgb Conc 34.9 g/dL (32-36); Mean Corpuscular Hgb 30.5 pg (27.0-32.0); Mean Corpuscular Volume 87.5 fL (80-94); Mean Platelet Vol. 10.5 fl (6.2-12.0); Platelet Count 195 K/mm3 (150-450); RBC Distribution Width CV 12.4 % (11.6-14.6); RBC Distribution Width SD 39.6 fl (35.1-43.9); Red Blood Count 5.18 M/mm3 (4.6-6.2); White Blood Count 6.2 K/mm3 (4.4-11.0)
[2019-08-13] MEDS: Lactated Ringers 1,000 ML 100 ML IV (07:42)
[2019-08-13] MEDS: Cefazolin 2 GM in 0.9% Normal Saline 100 ML IV (08:33)
--- NOTE | 2019-08-13 08:45 | HERN_PTH ---
PATIENT: ROGERIO CHAVEZ [place] [facility] [id number] AGE/SX: 48/M ROOM: RE08/13/[address]: Dr. Lex Diaz MD : 1970 BED: DIS: 08/13/2019 SPEC #: [id number] RECD: 08/13/19 13:14 STATUS: LIZZY ARUNA #: [id number] CAROLIN: 08/13/19 08:[address]: Lex Diaz DEPT: SURGICAL PATHOLOGY RECD BY: Rj Ivey ENTERED: 08/13/19 13:47 SP TYPE: Hernia OTHR DR: Rj Chiang, ENTERPRISE SYSTEMS MANAGER-C Tissues: HERNIA Procedures: Surgery Specimen Level II HEADER OPERATION: Laparoscopic ventral hernia repair, mesh PRE-OP DIAGNOSIS: Ventral incisional hernia K43.2 TISSUE SUBMITTED: Hernia sac MICROSCOPIC DIAGNOSIS Hernia sac, herniorrhaphy: Hernia sac with fibrosis. AM:maria isabel 08/14/19 MICROSCOPIC DESCRIPTION Slides are reviewed. GROSS DESCRIPTION Received in fixative is one container labeled with the patient's name and designated hernia sac. The specimen consists of two irregular fragments of adipose tissue that in aggregate measure 3 x 2 x 0.3 cm. The specimen is totally submitted in one cassette. / SJ:maria isabel 08/13/19 TC:5 CPT: [id number]
[2019-08-13] MEDS: BUPIVACAINE LIPOSOME/PF 20 ML VIAL OPERA.SITE (10:08)
--- NOTE | 2019-08-13 10:14 | OP.PCM_ITS ---
Problem List (1) Incisional hernia Status: Acute Qualifiers: Obstruction and gangrene presence: without obstruction or gangrene Qualified Code(s): K43.2 - Incisional hernia without obstruction or gangrene Report of Operation Date of Procedure: 08/13/19 Pre-Operative Diagnosis: Ventral incisional hernia x2 Post-Operative Diagnosis: Same Surgery/Procedure Performed:: Laparoscopic ventral hernia repair with mesh Specimen's removed: Hernia sac Description of Procedure: The patient was brought back to the operating room and general anesthesia was induced. The abdomen was prepped and draped in usual sterile fashion. An incision was made in the right upper quadrant and using Visiport technique a 5 mm port was placed under direct visualization. The abdomen was insufflated to 15 mmHg. The abdomen was inspected and there were dense adhesions to the anterior abdominal wall. A tap block was performed bilaterally using Exparel and saline mixture. Next a 5 mm port was placed in the left upper quadrant under direct visualization and in the left lower quadrant under direct visualization. Using harmonic scalpel and graspers the adhesions to the anterior abdominal wall and hernia contents were reduced and freed. There was a hernia defect at the umbilicus and superior to the umbilicus. Next an incision was made over the upper hernia and a 12 mm port was placed. The 15 cm round ventral light mesh with echo positioning system was placed through this port and then the fascia was closed with interrupted 0 Prolene sutures. Next the umbilical hernia defect was closed using a Luis Fernando Od needle and 0 Nurolon suture. Next a Luis Fernando Do needle was used to grasp the echo positioning de vice and the balloon was brought through the skin and inflated. The mesh was tacked circumferentially using secure strap tacks. The balloon was then removed and checked. It appeared intact. Next a few tacks were placed in the interior of the mesh and the mesh was inspected and appeared debris circumferentially secured and completely covering both defects with 5 cm overlap. The 5 mm ports were removed. The skin incisions were closed with interrupted 4 Monocryl sutures as well as Steri-Strips and bandages. Patient tolerated the procedure well was brought to PACU. Grafts/Implants Used: [address] mesh round - Admit VTE Documentation VTE Mechan Device Prophylaxis: SCD's
--- NOTE | 2019-08-13 10:19 | PCM.DC.HER ---
Discharge Diet: Light diet - advance as tolerated Discharge Activity: Return to Normal Activity, May Not Drive - for 2-3 days or while taking narcotic pain meds., May Shower - with the bandage in place 1-2 days after surgery. Lifting Restrictions: 20 pounds for 6 weeks. Additional Activity Instructions:: Climbing stairs is fine, walking is encouraged. Sitting in bed may be uncomfortable. Sitting up using your lateral muscles (sitting up sideways) is usually more comfortable. Do not drive, work heavy equipment of sign legal documents for 24 hours. Pain medications may cause nausea, you should typically eat light foods as you take your pain medications. Pain medications may also cause constipation. If you have difficulty with this, discuss with your doctor. Call your doctor if your incision/area has: Continuous Slow Oozing, Sudden Increased Bleeding, Increased Pain/ Swelling, Increased Redness, Foul Smelling Discharge Call your doctor if you observe: Fever of 101 or Higher Suture Line Care: Avoid Pulling/Pushing, Avoid Pinching/Bending Change Dressing in (Days):: 3 - Leave steri-strips for 1 week. May protect with a guaze bandaid. Cleanse incision/area with: Keep Dressing Clean & Dry Allergies/Adverse Reactions: Allergies No Known Allergies Allergy (Verified 08/07/19 14:21) Medications to take at Discharge Omeprazole [Prilosec] 20 mg PO DAILY 06/29/18 Lisinopril 5 mg PO DAILY 08/05/18 Oxycodone HCl/Acetaminophen [Percocet 5-325 mg Tablet] 1 - 2 tab PO Q6H PRN 7 Days #40 tablet 08/13/19 The following prescriptions were given: Oxycodone HCl/Acetaminophen [Percocet 5-325 mg Tablet] 1 - 2 tab PO Q6H PRN 7 Days #40 tablet PRN Reason: Pain Score 4-10/10 Transmission Status: Sent to [facility] Primary Care Physician: Rj Chiang NP-C [Primary Care Provider] - Test Results: Test results from this visit will be discussed in further detail at your follow-up appointment, if applicable. Please Follow Up With: Lex Diaz MD When: Please call to schedule 2 week follow up appointment. [phone]
== END 2019-08-13 13:14 | disposition home or self-care (01) ==
LOC: SDC 06:55 → AC 06:57
PROVIDERS: Anesthesiology; PCP Nurse Practitioner Primary Care; Referring Provider Surgery; Visit Provider Surgery
PROC: 0WQF4ZZ Repair Abdominal Wall, Percutaneous Endoscopic Approach (ICD-10-PCS; CPT 49654; principal; 2019-08-13 08:25)
DX: K43.2 Incisional hernia without obstruction or gangrene (principal); I10 Essential (primary) hypertension
CPT/HCPCS: 49654; 36415; 85027; 88302; J7120